=== PATIENT | male | born 1965 | race Caucasian/White ===

== ENCOUNTER 2017-04-10 13:23 | Inpatient (IN) | payer OTHER ==
[~2017-04-10] VITALS: Ht 188 cm; Wt 157.2 kg
[2017-04-10] VITALS (20 sets, daily range): BP systolic 105–213; BP diastolic 55–100; PULSE 33–81; TEMP 36.8–36.9; O2SAT 88–100; BMI 46.7
[2017-04-10] MEDS ORDERED: AMLO-110 PO (13:46)
[2017-04-10] MEDS ORDERED: INSU100I SQ (13:46)
[2017-04-10] MEDS ORDERED: TACR1CAP PO (13:46)
[2017-04-10] MEDS ORDERED: INSDGI SC (13:46)
[2017-04-10] MEDS ORDERED: ACET-1311 PO (13:46)
[2017-04-10] MEDS ORDERED: PRLSR20 PO (13:46)
[2017-04-10] MEDS ORDERED: ERGO500037 PO (13:46)
[2017-04-10] MEDS ORDERED: LPR25 PO (13:46)
[2017-04-10] MEDS ORDERED: MYCO250C26 PO (13:46)
[2017-04-10] MEDS ORDERED: VNTHFA/IN INH (13:46)
[2017-04-10] MEDS ORDERED: SODIUM CHLORIDE 0.9% 1000ML 1,000 ML IV STA (14:13)
[2017-04-10 14:59] LABS: URINE APPEARANCE CLEAR (CLEAR); URINE BILIRUBIN NEG (NEG); URINE COLOR YELLOW; URINE EPITHELIAL CELL AUTO 20-30 /lpf (0-5); URINE NITRITE NEG (NEG); URINE PH 6.5 (4.5-7.5); URINE SPECIFIC GRAVITY 1.022 (1.000-1.030); UROBILINOGEN NEG (NEG); ZZUR CULT IF INDIC CLEAN CATCH NO
[2017-04-10 15:02] LABS: BASO % 0.4 %; BASO ABS # 0.03 K/uL (0-0.2); COMPLETE YES; HEMATOCRIT 42.6 % (42-52); IG% 0.1 %; LYMPH % 16.8 %; LYMPH ABS # 1.19 K/uL (1.2-3.4); MEAN CELL VOLUME 80.1 fL (80-100); MEAN CORPUSCULAR HEMOGLOBIN 26.5 pg (25-34); MEAN CORPUSCULAR HGB CONC 33.1 g/dl (32-36); MEAN PLATELET VOLUME 9.5 fL (7.4-10.4); MONO % 7.5 %; NEUT % 73.2 %; PLATELET COUNT 190 K/uL (130-400); RED BLOOD COUNT 5.32 M/uL (4.7-6.1); WHITE BLOOD COUNT 7.08 K/uL (4.8-10.8)
[2017-04-10 15:08] LABS: MANUAL MICROSCOPIC REQUIRED? NO; REVIEW REQ? YES
--- NOTE | 2017-04-10 15:12 | DIAGNOSTIC IMAGING REPORT ---
HEAD WITHOUT CONTRAST (CT) CLINICAL HISTORY: 51 years-old Male presenting with syncope, hit head. TECHNIQUE: Multidetector CT imaging of the head was performed without the use of intravenous contrast. IV contrast: None. A dose lowering technique was used consistent with the principles of ALARA (as low as reasonably achievable). COMPARISON: None. CT DOSE (mGy.cm): The estimated cumulative dose is 823.94 mGycm. FINDINGS: Fiberglass Machine Operator topogram: Unremarkable. Ventricles and sulci normal in size. Brain parenchyma normal in appearance with preserved zambrano-white differentiation. No mass effect or midline shift. No hemorrhage or acute territorial infarct. No extra-axial fluid collection. Mild mucosal thickening in the maxillary sinuses. IMPRESSION: 1. No acute intracranial pathology. Electronically signed by: Ramiro Serrano M.D. 04/10/2017 3:11 PM Dictated Date/Time: 04/10/2017 3:09 PM
[2017-04-10 15:13] LABS: BUN/CREATININE RATIO 10.6 (10-20); CALCIUM 9.3 mg/dl (8.5-10.1); CREATININE 1.3 mg/dl (0.60-1.40); MAGNESIUM 1.7 mg/dl (1.8-2.4); POTASSIUM 4.6 mmol/L (3.5-5.1)
[2017-04-10 15:30] LABS: ALB/GLOB RATIO 0.9 (0.9-2); CKMB/CK RATIO 2.4 (0-3.0); THYROID STIMULATING HORMONE 0.448 uIu/ml (0.300-4.500)
--- NOTE | 2017-04-10 15:36 | EMERGENCY ROOM VISIT NOTE ---
ED Visit Note First contact with patient: 13:49 HPI: h/o renal txp. Chronic h/o syncope/near syncope presents to the ED with syncopal episode. Plan: Trop elevated to 0.08. EKG with first degree AVB. No signs of acute ischemia. ASA. Admit. Discuss anticoagulation with admitting team. I reviewed the patient's past medical history, medications, and visit nursing notes. I discussed the case with the physician catering administrative assistant and agree with the findings and plan as documented in the physician assistants note.
--- NOTE | 2017-04-10 15:47 | EMERGENCY ROOM VISIT NOTE ---
History First contact with patient: 13:49 Chief Complaint: SYNCOPE Stated Complaint: FALL/KNEE PAIN History of Present Illness The patient is a 51 year old male who presents to the Emergency Room with complaints of a syncopal episode which occurred just prior to arrival. The patient states that he has had intermittent lightheadedness for the past month. He states that the symptoms seem to come in waves. He will occasionally have 4-6 episodes of this in a few hours, and sometimes will go days without having any symptoms. He states that the lightheadedness occurs at times when he is standing up or sitting up, but does not occur when he is lying down. It does not seem to occur when he stands up after sitting for a period of time. He saw his primary care provider one month ago and states that he also had cold symptoms at this time and they felt the lightheadedness may be due to an upper respiratory infection. The patient reports that today, he was standing and began to feel lightheaded and had a syncopal episode. He does not recall the entire episode. He states that he fell onto his knees and hit the back of his head. The patient is a diabetic and has a history of hypertension. He reports he had a kidney transplant in 2014 but is unsure why. He denies any history of cardiac disease. He states that he was told when he was hospitalized he had an abnormal heart rhythm, but he is unsure what it was. He has had echocardiograms in the past. The patient denies any chest pain, shortness of breath, palpitations or headaches associated with these episodes. He denies any symptoms at this time. Review of Systems A complete 10 point review of systems was reviewed with the patient with pertinent positives and negatives as per history of present illness. All else were negative. Past Medical/Surgical History Renal transplant, hypertension, diabetes Social History Smoking Status: Never Smoker Current/Historical Medications Scheduled Amlodipine (Norvasc), 5 MG PO QAM Ergocalciferol (Vitamin D 01904 Unit), 50,000 UNIT PO MONTHLY Insulin Glargine (Lantus), 45 UNITS SC HS Insulin Lispro (Human) (Humalog), 4 UNITS SQ TIDM Metoprolol Tartrate (Lopressor), 25 MG PO Q12 Mycophenolate Mofetil (Cellcept), 500 MG PO Q12 Omeprazole (Prilosec), 20 MG PO QAM Tacrolimus (Prograf), 3 MG PO BID Scheduled PRN Acetaminophen (Tylenol), 650 MG PO Q6H PRN for Pain Albuterol Hfa (Ventolin Hfa), 2 PUFFS INH Q6H PRN for Shortness of Breath Physical Exam Vital Signs Date Time Temp Pulse Resp B/P (MAP) Pulse Ox O2 Delivery O2 Flow Rate FiO2 04/10/17 15:37 67 129/58 98 Room Air 04/10/17 14:09 68 125/59 70 139/63 72 105/68 04/10/17 13:45 36.9 66 152/79 97 Room Air 04/10/17 13:40 64 Physical Exam VITALS: Vitals are noted on the nurse's note and reviewed by myself. Vital signs stable. GENERAL: This is a 51-year-old male, in no acute distress, nondiaphoretic, well- developed well-nourished. SKIN: The skin was without rashes, erythema, edema, or bruising. HEAD: Normocephalic atraumatic. EARS: External auditory canals clear, tympanic membranes pearly zambrano without erythema or effusion bilaterally. EYES: Pupils equal round and reactive to light and accommodation. Conjunctivae without injection, sclerae without icterus. Extraocular movements intact. MOUTH: Mucous membranes moist. Tonsils are not enlarged. Pharynx without erythema or exudate. NECK: Supple without nuchal rigidity. HEART: Regular rate and rhythm without murmurs gallops or rubs. LUNGS: Clear to auscultation bilaterally without wheezes, rales or rhonchi. MUSCULOSKELETAL: Full range of motion of all extremities. Strength 5/5 throughout. NEURO: Patient was alert and oriented to person place and time. Normal sensation to light and sharp touch. No focal neurological deficits. Medical Decision & Procedures ER Provider Diagnostic Interpretation: HEAD WITHOUT CONTRAST (CT) FINDINGS: Logistics Analyst topogram: Unremarkable. Ventricles and sulci normal in size. Brain parenchyma normal in appearance with preserved zambrano-white differentiation. No mass effect or midline shift. No hemorrhage or acute territorial infarct. No extra-axial fluid collection. Mild mucosal thickening in the maxillary sinuses. IMPRESSION: 1. No acute intracranial pathology. CHEST ONE VIEW PORTABLE FINDINGS: Image quality is limited due to body habitus and underpenetration. Cardiac silhouette enlarged. Atherosclerosis of aortic arch. Mild prominence of pulmonary vasculature, which may in part be due to mildly low lung volumes. Elevation of the right hemidiaphragm. Lungs and pleural spaces clear. Osseous structures normal. Upper abdomen normal. IMPRESSION: 1. Cardiomegaly. 2. Mildly low lung volumes with hypoventilatory changes. Laboratory Results 04/10/17 14:35 Red Blood Count 5.32, Mean Corpuscular Volume 80.1, Mean Corpuscular Hemoglobin 26.5, Mean Corpuscular Hemoglobin Concent 33.1, Mean Platelet Volume 9.5, Neutrophils (%) (Auto) 73.2, Lymphocytes (%) (Auto) 16.8, Monocytes (%) (Auto) 7.5, Eosinophils (%) (Auto) 2.0, Basophils (%) (Auto) 0.4, Neutrophils # (Auto) 5.18, Lymphocytes # (Auto) 1.19, Monocytes # (Auto) 0.53, Eosinophils # (Auto) 0.14, Basophils # (Auto) 0.03 04/10/17 14:35 Test 04/10/17 14:20 04/10/17 14:35 Urine Color YELLOW Urine Appearance CLEAR (CLEAR) Urine pH 6.5 (4.5-7.5) Urine Specific [place] 1.022 (1.000-1.030) Urine Protein TRACE (NEG) Urine Glucose (UA) NEG (NEG) Urine Ketones NEG (NEG) Urine Occult Blood NEG (NEG) Urine Nitrite NEG (NEG) Urine Bilirubin NEG (NEG) Urine Urobilinogen NEG (NEG) Urine Leukocyte Esterase NEG (NEG) Urine WBC (Auto) 1-5 /hpf (0-5) Urine RBC (Auto) 0-4 /hpf (0-4) Urine Hyaline Casts (Auto) 0 /lpf (0-5) Urine Epithelial Cells (Auto) 20-30 /lpf (0-5) Urine Bacteria (Auto) NEG (NEG) White Blood Count 7.08 K/uL (4.8-10.8) Red Blood Count 5.32 M/uL (4.7-6.1) Hemoglobin 14.1 g/dL (14.0-18.0) Hematocrit 42.6 % (42-52) Mean Corpuscular Volume 80.1 fL (80-100) Mean Corpuscular Hemoglobin 26.5 pg (25-34) Mean Corpuscular Hemoglobin Concent 33.1 g/dl (32-36) Platelet Count 190 K/uL (130-400) Mean Platelet Volume 9.5 fL (7.4-10.4) Neutrophils (%) (Auto) 73.2 % Lymphocytes (%) (Auto) 16.8 % Monocytes (%) (Auto) 7.5 % Eosinophils (%) (Auto) 2.0 % Basophils (%) (Auto) 0.4 % Neutrophils # (Auto) 5.18 K/uL (1.4-6.5) Lymphocytes # (Auto) 1.19 K/uL (1.2-3.4) Monocytes # (Auto) 0.53 K/uL (0.11-0.59) Eosinophils # (Auto) 0.14 K/uL (0-0.5) Basophils # (Auto) 0.03 K/uL (0-0.2) RDW Standard Deviation 43.4 fL (36.4-46.3) RDW Coefficient of Variation 15.0 % (11.5-14.5) Immature Granulocyte % (Auto) 0.1 % Immature Granulocyte # (Auto) 0.01 K/uL (0.00-0.02) Anion Gap 8.0 mmol/L (3-11) Est Creatinine Clear Calc Drug Dose 110.9 ml/min Estimated GFR () 73.7 Estimated GFR (Non- 63.6 BUN/Creatinine Ratio 10.6 (10-20) Calcium Level 9.3 mg/dl (8.5-10.1) Magnesium Level 1.7 mg/dl (1.8-2.4) Total Bilirubin 0.8 mg/dl (0.2-1) Aspartate Amino Transf (AST/SGOT) 11 U/L (15-37) Alanine Aminotransferase (ALT/SGPT) 18 U/L (12-78) Alkaline Phosphatase 89 U/L (45-117) Total Creatine Kinase 68 U/L (39-308) Creatine Kinase MB 1.6 ng/ml (0.5-3.6) Creatine Kinase MB Ratio 2.4 (0-3.0) Total Protein 7.7 gm/dl (6.4-8.2) Albumin 3.6 gm/dl (3.4-5.0) Globulin 4.1 gm/dl (2.5-4.0) Albumin/Globulin Ratio 0.9 (0.9-2) Thyroid Stimulating Hormone (TSH) 0.448 uIu/ml (0.300-4.500) Medications Administered Medications (Trade) Dose Ordered Sig/Jamilah Route Start Time Stop Time Status Last Admin Dose Admin Sodium Chloride 1,000 ml @ 999 mls/hr Q1H1M STAT IV 04/10/17 14:13 04/10/17 15:13 DC 04/10/17 14:39 999 MLS/HR ECG Indication: syncope Rate (beats per minute): 68 Rhythm: normal sinus Findings: 1st degree AV block, no acute ischemic change Comparison ECG Date: no prior available ED Course The patient was evaluated as above. Labs were drawn and IV access was obtained. Patient was medicated with a 1 L normal saline bolus. Patient was reevaluated and findings were discussed. The patient is agreeable to admission. Case was discussed with the [facility] hospitalist, Dr. Fraire. They agreed to evaluate the patient for admission. Medical Decision Differential diagnosis includes cardiac syncope, vasovagal syncopal, arrhythmia , viral illness, dehydration, neurological source, infection among others. The patient is a 51-year-old male with past medical history of diabetes, hypertension and renal transplant who presents today for evaluation of a syncopal episode. The patient is well-appearing on my initial exam. Vital signs are within normal limits. Cmbet-rs-ihox glucose had been performed by EMS and was 200. Orthostatic vital signs were negative. Labs revealed no leukocytosis, anemia or concerning electrolyte abnormalities. CT of the head was performed due to the head trauma and was negative. Chest x-ray showed cardiomegaly, without any other acute findings. EKG showed a normal sinus rhythm with first-degree AV block. I was unable to obtain a prior EKG for comparison. I was able to access the patient's [facility] records. It appears that when he was hospitalized after his renal transplant, he had at least 1 episode of SVT. The patient does not recall following up with cardiology since this incident and I do not see any cardiology visits within the records. Patient reports he was told about this arrhythmia, but does not recall it occurring. The patient remained in a normal sinus rhythm throughout his stay in the emergency department today. However, his troponin was found to be slightly elevated at 0.08. Additionally, the patient's lightheadedness does not appear to be due to vasovagal syncope. For this reason, I am concerned about a possible arrhythmia or other cardiac abnormality and the patient will be admitted for further evaluation. [facility]. The patient was independently evaluated by Dr. Garcia, ED attending physician, who agreed with my assessment and treatment plan. Medication Reconcilliation Current Medication List: was personally reviewed by me Blood Pressure Screening Patient's blood pressure: Normal blood pressure Impression Primary Impression: Syncope Additional Impression: Elevated troponin Departure Information Referrals No Doctor, Assigned (PCP) Patient Instructions My [facility] Problem Qualifiers
--- NOTE | 2017-04-10 16:24 | DIAGNOSTIC IMAGING REPORT ---
CHEST ONE VIEW PORTABLE CLINICAL HISTORY: 51 years-old Male presenting with syncope. TECHNIQUE: Portable upright AP view of the chest was obtained. COMPARISON: None. FINDINGS: Image quality is limited due to body habitus and underpenetration. Cardiac silhouette enlarged. Atherosclerosis of aortic arch. Mild prominence of pulmonary vasculature, which may in part be due to mildly low lung volumes. Elevation of the right hemidiaphragm. Lungs and pleural spaces clear. Osseous structures normal. Upper abdomen normal. IMPRESSION: 1. Cardiomegaly. 2. Mildly low lung volumes with hypoventilatory changes. Electronically signed by: Ramiro Serrano M.D. 04/10/2017 4:23 PM Dictated Date/Time: 04/10/2017 4:22 PM
[2017-04-10] MEDS ORDERED: GLUCAGON FOR INJ 1 MG VIAL SQ PRN (16:45)
[2017-04-10] MEDS ORDERED: ALBUTEROL HFA 8 GM INHALER INH PRN (16:45)
[2017-04-10] MEDS ORDERED: GLUCOSE 40% GEL 15 GM TUBE PO PRN (16:45)
[2017-04-10] MEDS ORDERED: GLUCOSE 10 TABS/TUBE PO PRN (16:45)
[2017-04-10] MEDS ORDERED: DEXTROSE 50% 50 ML SYR IV PRN (16:45)
[2017-04-10] MEDS ORDERED: NITROGLYCERIN 0.4 MG SL PER TAB CHARGE SL PRN (16:45)
--- NOTE | 2017-04-10 17:02 | History and Physical ---
History & Physical Date & Time of Service: Apr 10, 2017 at 16:46 Chief Complaint: Fall/Knee Pain Primary Care Physician: No Doctor, Assigned History of Present Illness Source: patient, family 51 year old with PMH significant for transplanted kidney 2 years ago in [facility] syncope event on 04/10/17 at home fell on the floor after feeling lightheadedness and "head walker" of bloodflow/ warmth to head does not recall hitting the ground remembers waking up after being called by family member estimates that symptoms lasted briefly on this episode but has been feeling lightheaded symptoms for weeks denies symptoms when changing positions from sitting to standing, initially having lightheaded symptoms at rest, then more recently noted having lightheaded symptoms when already standing received IV fluids in ED history of diabetes on insulin, denies hypoglycemic numbers when he has checked blood sugars when having symptoms, denies hypoglycemic numbers immediately after hypoglycemic episode, estimates his blood sugar was 200, on ED presentation the glucose has been 193 on labs reports that he did not take his medicines prior to the episode, did not take insulin, or blood pressure medication denies seizure like symptoms denies history of stroke, CT head negative for stroke denies history of myocardial infarction initial troponin elevated 0.08 slightly elevated EKG with 1st degree AV block, AR interval 252 Review of systems: some head congestion and cough for 4 weeks Family History FH: diabetes mellitus FATHER Social History Smoking Status: Never Smoker Alcohol Use: none Multi-Drug Resistant Organisms History of MDRO: No Allergies Coded Allergies: No Known Allergies (Verified , 08/16/02) Home Medications Scheduled Amlodipine (Norvasc), 5 MG PO QAM Ergocalciferol (Vitamin D 55170 Unit), 50,000 UNIT PO MONTHLY Insulin Glargine (Lantus), 45 UNITS SC HS Insulin Lispro (Human) (Humalog), 4 UNITS SQ TIDM Metoprolol Tartrate (Lopressor), 25 MG PO Q12 Mycophenolate Mofetil (Cellcept), 500 MG PO Q12 Omeprazole (Prilosec), 20 MG PO QAM Tacrolimus (Prograf), 3 MG PO BID Scheduled PRN Acetaminophen (Tylenol), 650 MG PO Q6H PRN for Pain Albuterol Hfa (Ventolin Hfa), 2 PUFFS INH Q6H PRN for Shortness of Breath Review of Systems Constitutional: No fever Eyes: No worsening of vision ENT: No sore throat, No trouble swallowing Respiratory: + cough, + shortness of breath Cardiovascular: No chest pain, No edema, No palpitations Abdomen: No pain, No nausea, No vomiting, No diarrhea, No constipation Musculoskeletal: No joint pain Neurologic: + vertigo (syncope), No paralysis, No numbness/tingling Psychiatric: No substance abuse Endocrine: No fatigue Hematologic / Lymphatic: No abnormal bleeding/bruising Integumentary: No rash Allergic / Immunologic: + environmental allergies Physical Exam Vital Signs Date Time Temp Pulse Resp B/P (MAP) Pulse Ox O2 Delivery O2 Flow Rate FiO2 04/10/17 15:37 67 129/58 98 Room Air 04/10/17 14:09 68 125/59 70 139/63 72 105/68 04/10/17 13:45 36.9 66 152/79 97 Room Air 04/10/17 13:40 64 General Appearance: no apparent distress Head: normocephalic, atraumatic Eyes: normal inspection, EOMI Respiratory/Chest: chest non-tender, lungs clear (mildy less clear on right lung sapp), normal breath sounds, no respiratory distress, no accessory muscle use Cardiovascular: regular rate, rhythm, no edema, no JVD, normal peripheral pulses Abdomen/GI: normal bowel sounds, non tender, soft, no pulsatile mass Genitourinary - Male: normal male genitalia Back: normal inspection Extremities/Musculoskelatal: normal inspection, no calf tenderness, normal capillary refill, non-tender, + pertinent finding (history of toe amputation) Neurologic/Psych: no motor/sensory deficits, alert, normal mood/affect, oriented x 3 Skin: normal color, warm/dry Diagnostics Laboratory Results Results Past 24 Hours Test 04/10/17 14:20 04/10/17 14:35 Range/Units Urine Color YELLOW Urine Appearance CLEAR CLEAR Urine pH 6.5 4.5-7.5 Urine Specific [place] 1.022 1.000-1.030 Urine Protein TRACE NEG Urine Glucose (UA) NEG NEG Urine Ketones NEG NEG Urine Occult Blood NEG NEG Urine Nitrite NEG NEG Urine Bilirubin NEG NEG Urine Urobilinogen NEG NEG Urine Leukocyte Esterase NEG NEG Urine WBC (Auto) 1-5 0-5 /hpf Urine RBC (Auto) 0-4 0-4 /hpf Urine Hyaline Casts (Auto) 0 0-5 /lpf Urine Epithelial Cells (Auto) 20-30 0-5 /lpf Urine Bacteria (Auto) NEG NEG White Blood Count 7.08 4.8-10.8 K/uL Red Blood Count 5.32 4.7-6.1 M/uL Hemoglobin 14.1 14.0-18.0 g/dL Hematocrit 42.6 42-52 % Mean Corpuscular Volume 80.1 80-100 fL Mean Corpuscular Hemoglobin 26.5 25-34 pg Mean Corpuscular Hemoglobin Concent 33.1 32-36 g/dl Platelet Count 190 130-400 K/uL Mean Platelet Volume 9.5 7.4-10.4 fL Neutrophils (%) (Auto) 73.2 % Lymphocytes (%) (Auto) 16.8 % Monocytes (%) (Auto) 7.5 % Eosinophils (%) (Auto) 2.0 % Basophils (%) (Auto) 0.4 % Neutrophils # (Auto) 5.18 1.4-6.5 K/uL Lymphocytes # (Auto) 1.19 1.2-3.4 K/uL Monocytes # (Auto) 0.53 0.11-0.59 K/uL Eosinophils # (Auto) 0.14 0-0.5 K/uL Basophils # (Auto) 0.03 0-0.2 K/uL RDW Standard Deviation 43.4 36.4-46.3 fL RDW Coefficient of Variation 15.0 11.5-14.5 % Immature Granulocyte % (Auto) 0.1 % Immature Granulocyte # (Auto) 0.01 0.00-0.02 K/uL Sodium Level 137 136-145 mmol/L Potassium Level 4.6 3.5-5.1 mmol/L Chloride Level 106 98-107 mmol/L Carbon Dioxide Level 23 21-32 mmol/L Anion Gap 8.0 3-11 mmol/L Blood Urea Nitrogen 14 7-18 mg/dl Creatinine 1.30 0.60-1.40 mg/dl Est Creatinine Clear Calc Drug Dose 110.9 ml/min Estimated GFR () 73.7 Estimated GFR (Non- 63.6 BUN/Creatinine Ratio 10.6 10-20 Random Glucose 193 70-99 mg/dl Calcium Level 9.3 8.5-10.1 mg/dl Magnesium Level 1.7 1.8-2.4 mg/dl Total Bilirubin 0.8 0.2-1 mg/dl Aspartate Amino Transf (AST/SGOT) 11 15-37 U/L Alanine Aminotransferase (ALT/SGPT) 18 12-78 U/L Alkaline Phosphatase 89 45-117 U/L Total Creatine Kinase 68 39-308 U/L Creatine Kinase MB 1.6 0.5-3.6 ng/ml Creatine Kinase MB Ratio 2.4 0-3.0 Troponin I 0.080 0-0.045 ng/ml Total Protein 7.7 6.4-8.2 gm/dl Albumin 3.6 3.4-5.0 gm/dl Globulin 4.1 2.5-4.0 gm/dl Albumin/Globulin Ratio 0.9 0.9-2 Thyroid Stimulating Hormone (TSH) 0.448 0.300-4.500 uIu/ml Diagnostic Radiology no official radiology read yet right lungs clear, clearly seen right costophrenic angle, left costophrenic angles not as clear on my own CXR interpretation EKG EKG with 1st degree AV block, AR interval 252, Impression Assessment and Plan Assessment and Plan syncope event on 04/10/17 at home fell on the floor after feeling lightheadedness and "head walker" of bloodflow/ warmth to head does not recall hitting the ground remembers waking up after being called by family member estimates that symptoms lasted briefly on this episode but has been feeling lightheaded symptoms for weeks denies symptoms when changing positions from sitting to standing, initially having lightheaded symptoms at rest, then more recently noted having lightheaded symptoms when already standing, received IV fluids in the ED, will check orthostatics history of diabetes on insulin, denies hypoglycemic numbers when he has checked blood sugars when having symptoms, denies hypoglycemic numbers immediately after hypoglycemic episode, estimates his blood sugar was 200, on ED presentation the glucose has been 193 on labs reports that he did not take his medicines prior to the episode, did not take insulin, or blood pressure medication hold blood pressure medication denies seizure like symptoms denies history of stroke, CT head negative for stroke denies history of myocardial infarction initial troponin elevated 0.08 slightly elevated, trend troponins EKG with 1st degree AV block, AR interval 252, may be new Comparison EKG on outpatient records in the past with runs of SVT? afib? but may have been related to kidney transplant will place on telemetry, serial EKGs EKG with left axis deviation Last TTE on record Study Date: 05/05/2015 03:33 PM [place] [facility] [place] of [place] diagnosis for atrial fibrillation; LV ejection fraction is 60-64% (normal). The left ventricular cavity size is normal. The LV wall thickness is mildly increased (concentric). The left ventricular diastolic function is moderately abnormal (grade II). send for transthoracic echo on this admission no appreciable carotid bruit, send carotid ultrasound ordered consult cardiology History of renal transplant continue home dosed immunosuppressants trend renal function labs Head congestion and cough history patient reports symptoms have been improving, supportive care Shortness of breath on review of systems on exertion check TTE no JVD, no leg edema obtain full X ray reading DVT prophylaxis heparin subcut Level of Care Telemetry Resuscitation Status FULL RESUSCITATION VTE Prophylaxis VTE Risk Assessment Done? Y/N: Yes Risk Level: Moderate Given or contraindicated: Unfractionated heparin SQ
--- NOTE | 2017-04-10 18:00 | DIAGNOSTIC IMAGING REPORT ---
CAROTID DOPPLER NECK ART CLINICAL HISTORY: 51 years-old Male presenting with syncope. TECHNIQUE: Real-time grayscale and color and spectral Doppler ultrasound imaging of the bilateral carotid arteries was performed. NASCET criteria was used in evaluating this study. COMPARISON: None. FINDINGS: Right: Common carotid: Patent. Peak systolic velocity 85 cm/s. Internal carotid artery: Patent. Peak systolic velocity 75 cm/s. External carotid artery: Patent. Peak systolic velocity 121 cm/s. Systolic ratio: 0.9. Left: Common carotid: Patent. Peak systolic velocity 85 cm/s. Internal carotid artery: Patent. Peak systolic velocity 88 cm/s. External carotid artery: Patent. Peak systolic velocity 135 cm/s. Systolic ratio: 1.0. Bilateral antegrade flow within the vertebral arteries. Reference ranges: Stenosis measurements are compared to reference velocity parameters. Normal ICA peak systolic velocity less than 125 cm/s. Normal ICA peak systolic velocity to common carotid artery velocity ratio is less than 2: less than 2 equates to less than 50% stenosis, 2-4 equates to 50-69% stenosis, greater than 4 equates to greater than or equal to 70% stenosis. Normal ICA end-diastolic velocity less than 40. Blood pressure Deferred secondary to limb restriction. IMPRESSION: No hemodynamically significant stenosis seen within the carotid arteries. Electronically signed by: Ramiro Serrano M.D. 04/10/2017 5:59 PM Dictated Date/Time: 04/10/2017 5:58 PM
[2017-04-10] MEDS ORDERED: IV FLUIDS COMPLETED PRN (18:15)
[2017-04-10] MEDS ORDERED: INFLUENZA ADMINISTRATION CHARGE ONE (20:15)
[2017-04-10] MEDS ORDERED: INFLUENZA VIRUS QUAD VACCINE 0.5 ML SYR IM. ONE (20:15)
[2017-04-10] MEDS ORDERED: METOPROLOL TARTRATE 25 MG TAB PO SCH (21:00)
[2017-04-10] MEDS ORDERED: INSULIN GLARGINE SOLOSTAR 100 UNITS/ML 3 ML PEN SC SCH ×2 (21:00→21:45)
[2017-04-10] MEDS ORDERED: ATROPINE SULFATE 0.1 MG/ML 5ML SYR ONE (21:07)
[2017-04-10] MEDS: TACROLIMUS 1 MG CAP PO SCH (21:57)
[2017-04-10] MEDS: MYCOPHENOLATE MOFETIL 250 MG CAP (CELLCEPT) PO SCH (21:57)
[2017-04-10 22:15] LABS: PROTHROMBIN TIME (PATIENT) 10.7 SECONDS (9.0-12.0)
[2017-04-10] MEDS ORDERED: CALCIUM GLUCONATE 10% 1,000 MG in SODIUM CHLORIDE 0.9% 50ML 50 ML IV STA (22:15)
[2017-04-10] MEDS ORDERED: DOPamine 400MG / D5W 400 MG IV SCH (22:15)
[2017-04-10] MEDS: SODIUM CHLORIDE 0.9% 1000ML 1,000 ML IV SCH (22:41)
--- NOTE | 2017-04-10 23:20 | Progress Note ---
Progress Note Date of Service Apr 10, 2017. Progress Note Contacted by nursing that the patient was appearing unstable with a low heart rate, lizzette pond was called. At bedside the patient is mentating well and is otherwise asymptomatic aside from distracting pain from the nurse who is placing an IV in his R arm. He denies any chest pain or shortness of breath and states that he became lightheaded while standing up to use a urinal. He was admitted for a syncopal episode earlier today, and reports being lightheaded without LOC for the past month. He is obese, s/p kidney transplant 2 years ago, and is a diabetic on insulin with a normal sugar level at this time. He takes metoprolol reportedly for hypertension, although there is some mention of a history of atrial fibrillation in the chart; the patient denies this. His last dose of metoprolol was this morning roughly 12 hours ago. His BP was 125 systolic and his HR was in the 30s when I arrived with significant pauses just seen on EKG. Atropine 0.5mg was given x 1 dose with no response. Pacer pads were in place, however, with the patient currently tolerating the low heart rate, external pacing was not needed. He was transferred to the ICU for monitoring overnight. I contacted Dr. Boston Guevara from Cardiology who recommended dopamine 5mcg/kg/ min for support and to keep the patient NPO p MN in preparation for possible pacemaker placement. I contact Dr. Diana Sims, the ICU attending, and apprised him of the patient. He agreed with the dopamine despite a SBP of 170 and HR in the 70s. However, within 30 minutes of starting the dopamine, his SBP went up to 213 and the dopamine was held. His HR remains in the low 70s with occasional pauses. He was given 1 gram Ca gluconate IV. All AV milo blocking agents were held. He was given half of his typical Lantus dose of 45 Units prior to sleep and CPAP was ordered for him with a h/o SUJIT and typically wearing a CPAP mask at home. On reevaluation in the ICU he is comfortable, mentating well and without any complaints except for some L knee pain from when he fell earlier in the day. His cardiac exam was normal with good peripheral pulses, and his lungs were clear to auscultation bilaterally. His knee has normal ROM, no evidence of effusion and a small, coin-sized superficial abrasion over the patella. Will plan to externally pace if patient drops below 30bpm or becomes symptomatic. Rigo, DO
[2017-04-11] VITALS (69 sets, daily range): BP systolic 112–169; BP diastolic 47–77; PULSE 34–81; TEMP 36.5–37.2; O2SAT 89–99; Ht 188 cm; Wt 157.2 kg
[2017-04-11] MEDS ORDERED: CALCIUM GLUCONATE 10% 1,000 MG in SODIUM CHLORIDE 0.9% 50ML 50 ML IV STA (00:18)
[2017-04-11] MEDS ORDERED: ONDANSETRON INJ 2 MG/ML 2 ML VIAL ONE (00:37)
[2017-04-11] MEDS ORDERED: NURSING VERBAL MED ORDER ONE ×2 (00:45→06:30)
[2017-04-11] MEDS ORDERED: ONDANSETRON INJ 2 MG/ML 2 ML VIAL IV PRN (01:30)
[2017-04-11 06:06] LABS: HEMATOCRIT 42.1 % (42-52); MEAN CELL VOLUME 80.8 fL (80-100); MEAN CORPUSCULAR HEMOGLOBIN 27.3 pg (25-34); MEAN CORPUSCULAR HGB CONC 33.7 g/dl (32-36); MEAN PLATELET VOLUME 9.9 fL (7.4-10.4); PLATELET COUNT 267 K/uL (130-400); RED BLOOD COUNT 5.21 M/uL (4.7-6.1); WHITE BLOOD COUNT 16.55 K/uL (4.8-10.8)
[2017-04-11] MEDS: MAGNESIUM SULFATE 1GM / D5W 1 GM in PREMIXED IN D5W 100 ML IV SCH ×2 (06:37→07:47)
[2017-04-11] MEDS: SODIUM CHLORIDE 0.9% 1000ML 1,000 ML IV SCH (06:38)
[2017-04-11 06:42] LABS: BUN/CREATININE RATIO 9.7 (10-20); CALCIUM 9.7 mg/dl (8.5-10.1); CREATININE 1.7 mg/dl (0.60-1.40); MAGNESIUM 1.7 mg/dl (1.8-2.4)
[2017-04-11 06:56] LABS: BETA-HYDROXYBUTYRATE 16.51 mg/dL (0.2-2.81)
[2017-04-11] MEDS ORDERED: INSULIN ASPART 100 UNITS/ML 3 ML PEN SQ SCH (07:15)
--- NOTE | 2017-04-11 07:58 | Critical Care Consultation ---
Critical Care Consultation Date of Consultation: Apr 11, 2017. Attending Physician: David Fraire M.D. Reason for Consultation: Symptomatic Bradycardia History of Present Illness Pt is a 51M with a PMHx of renal translate on immunosuppresants, Left Toe Amp in 2000, DM2 on insulin p/w syncope in the setting of one month of dizzines x 4 weekss. Pt does not recall the fall but does remember feeling a head walker just before the fall. The patient was admitted to telemetry, while in tele pt was apparently standing to use the urinal and the heart monitor noticed long pauses with a heart rate in the 30s. Dr. Sierra ([facility] Hospitalist) consulted Dr. Guevara (cardiology) and Dr. Sims (sales operations director), atropine was given x 1 with no effect, a dopamine drip was started and the pt was transferred to the ICU. EKG showed first degree heart block. All AV milo blocking agents were held. Pt was made NPO for possible Pacemaker placement today (04/11/17). Pt denies any previous cardiac history. In the ICU pt had a suspected run of Torsades and IV Magnesium was given. ICU course this far is only complicated by nausea which is being treated with Zofran. Last TTE on record Study Date: 05/05/2015 03:33 PM Study Location: [facility] [place] performed because of referral diagnosis for atrial fibrillation; LV ejection fraction is 60-64% (normal). The left ventricular cavity size is normal. The LV wall thickness is mildly increased (concentric). The left ventricular diastolic function is moderately abnormal (grade II). Carotid Echocardiogram is unremarkable. Pt was seen and examined at bedside in the AM of 04/11/17, pt has no complaints at presents. Denies chest pain, denies SOB, pt is vomiting he however is made NPO. Pt has gotten IV Zofran. Plan of care was described to the patient and all questions were answered. Family History FH: diabetes mellitus FATHER Social History Smoking Status: Never Smoker Alcohol Use: none Allergies Coded Allergies: No Known Allergies (Verified , 08/16/02) Home Medications Scheduled Amlodipine (Norvasc), 5 MG PO QAM Ergocalciferol (Vitamin D 99607 Unit), 50,000 UNIT PO MONTHLY Insulin Glargine (Lantus), 45 UNITS SC HS Insulin Lispro (Human) (Humalog), 4 UNITS SQ TIDM Metoprolol Tartrate (Lopressor), 25 MG PO Q12 Mycophenolate Mofetil (Cellcept), 500 MG PO Q12 Omeprazole (Prilosec), 20 MG PO QAM Tacrolimus (Prograf), 3 MG PO BID Scheduled PRN Acetaminophen (Tylenol), 650 MG PO Q6H PRN for Pain Albuterol Hfa (Ventolin Hfa), 2 PUFFS INH Q6H PRN for Shortness of Breath Current Inpatient Medications Current Inpatient Medications Medications (Trade) Dose Ordered Sig/Jamilah Route Start Time Stop Time Status Last Admin Dose Admin Albuterol (Ventolin Hfa Inhaler) 2 puffs Q6H PRN INH 04/10/17 16:45 05/10/17 16:44 Mycophenolate Mofetil (Cellcept Cap) 500 mg Q12 PO 04/10/17 21:00 05/10/17 20:59 04/10/17 21:57 500 MG Tacrolimus (Prograf Cap) 3 mg BID PO 04/10/17 21:00 05/10/17 20:59 04/10/17 21:57 3 MG Glucose (Glucose 40% Gel) 15-30 GRAMS 15 GRAMS... UD PRN PO 04/10/17 16:45 05/10/17 16:44 Glucose (Glucose Chew Tab) 4-8 Tablets 4 Tabl... UD PRN PO 04/10/17 16:45 05/10/17 16:44 Dextrose (Dextrose 50% 50ML Syringe) 25-50ML OF 50% DW IV FOR... UD PRN IV 04/10/17 16:45 05/10/17 16:44 Glucagon (Glucagon Inj) 1 mg UD PRN SQ 04/10/17 16:45 05/10/17 16:44 Insulin Glargine (Lantus Solostar Pen) 20 units HS SC 04/10/17 21:45 05/10/17 21:44 04/10/17 22:34 20 UNITS Dopamine HCl/ Dextrose 250 ml @ 0 mls/hr Q0M IV 04/10/17 22:15 05/10/17 22:14 04/10/17 22:32 17.4 MLS/HR Sodium Chloride 1,000 ml @ 125 mls/hr Q8H IV 04/10/17 22:30 10/9/17 14:29 04/11/17 06:38 125 MLS/HR Ondansetron HCl (Zofran Inj) 4 mg Q6H PRN IV 04/11/17 01:30 05/11/17 01:29 04/11/17 05:19 4 MG Magnesium Sulfate 1 gm/Prmx 100 ml @ 100 mls/hr Q1H IV 04/11/17 06:30 04/11/17 08:29 04/11/17 06:37 100 MLS/HR Review of Systems Constitutional: No fever, No chills, No sweats, No weight loss Respiratory: No cough, No sputum, No wheezing, No shortness of breath Cardiovascular: No chest pain Abdomen: + pain (on deep palpation, no rebound tenderness, ), + nausea, + vomiting, No diarrhea (last BM yesterday), No constipation Musculoskeletal: No joint pain Genitourinary - Male: No dysuria Physical Exam Date Time Temp Pulse Resp B/P (MAP) Pulse Ox O2 Delivery O2 Flow Rate FiO2 04/11/17 06:01 52 21 155/52 (86) 93 04/11/17 05:44 36.7 65 19 137/60 93 Nasal Cannula 6.0 65 04/11/17 05:31 45 19 140/53 (82) 89 04/11/17 05:01 46 13 136/57 (83) 97 04/11/17 04:31 47 25 156/59 (91) 91 04/11/17 04:01 36.5 59 26 147/57 (87) 92 04/11/17 04:00 93 Nasal Cannula 6.0 04/11/17 03:59 58 20 137/60 (85) 93 04/11/17 03:31 65 19 137/60 (85) 95 04/11/17 03:01 68 26 166/57 (93) 92 04/11/17 02:46 67 24 157/63 (94) 91 04/11/17 02:31 73 17 166/64 (98) 91 04/11/17 02:16 69 22 162/60 (94) 91 04/11/17 02:01 69 27 143/63 (89) 91 04/11/17 01:46 65 27 152/62 (92) 90 04/11/17 01:31 67 18 157/62 (93) 90 04/11/17 01:16 67 26 158/68 (98) 90 04/11/17 01:01 75 17 148/71 (96) 92 04/11/17 00:47 81 10 169/68 (101) 91 04/11/17 00:32 49 18 167/64 (98) 93 04/11/17 00:17 62 15 148/72 (97) 93 04/11/17 00:13 44 13 137/52 (80) 95 04/11/17 00:01 95 CPAP 6.0 04/11/17 00:01 36.7 74 18 160/77 (104) 98 04/10/17 23:46 64 23 168/66 (100) 91 04/10/17 23:33 63 22 163/55 (91) 91 04/10/17 23:31 65 24 151/71 (97) 91 04/10/17 23:16 64 18 155/75 (101) 88 04/10/17 23:14 65 92 04/10/17 23:01 68 12 178/71 (106) 94 04/10/17 22:51 80 12 213/77 (122) 96 Room Air 04/10/17 22:46 81 12 204/81 (122) 98 Room Air 04/10/17 22:31 75 13 183/80 (114) 99 Room Air 04/10/17 22:16 72 12 163/93 (116) 94 Room Air 04/10/17 22:01 76 19 176/77 (110) 100 Room Air 04/10/17 21:46 72 13 175/80 (111) 93 Room Air 04/10/17 21:31 67 12 159/100 (119) 100 Room Air 04/10/17 21:22 36.8 58 17 137/79 (98) 99 Room Air 04/10/17 21:19 98 Room Air 04/10/17 21:10 105/78 (87) 04/10/17 20:55 33 106/71 (83) 04/10/17 19:28 36.9 69 22 119/61 (80) 98 Room Air 04/10/17 17:40 36.8 72 16 159/72 (101) 97 Room Air 04/10/17 17:17 98 Room Air 04/10/17 15:37 67 129/58 98 Room Air 04/10/17 14:09 68 125/59 70 139/63 72 105/68 04/10/17 13:45 36.9 66 152/79 97 Room Air 04/10/17 13:40 64 General Appearance: mild distress (pt is dry heaving at bedside), obese Eyes: PERRLA, EOMI, conjunctivae normal Neck: normal range of motion, no tenderness Respiratory: breath sounds normal, clear to auscultation, no respiratory distress, no tenderness, other (pt is on 6LNC) Cardiovasular: other (sinus bradycardia on the monitor) Abdomen: normal bowel sounds, other (Pain to deep palpation in the RUQ, pt is obese, no spleno or hepatomegaly appreciated, no guarding, ) Back: normal inspection, no CVA tenderness Upper Extremities: other (Left AV fistua, 1+ edema in the UE and LE bilaterally ) Pulses: dorsalis pedis (R) (2+), dorsalis pedis (L) (2+) Neuro: alert, oriented x 3, normal sensation, normal speech, other Psychiatric: normal affect, no suicidal ideation Laboratory Results Last 24 Hours Test 04/10/17 14:20 04/10/17 14:35 04/10/17 17:18 04/10/17 20:07 Urine Color YELLOW Urine Appearance CLEAR Urine pH 6.5 Urine Specific [place] 1.022 Urine Protein TRACE Urine Glucose (UA) NEG Urine Ketones NEG Urine Occult Blood NEG Urine Nitrite NEG Urine Bilirubin NEG Urine Urobilinogen NEG Urine Leukocyte Esterase NEG Urine WBC (Auto) 1-5 /hpf Urine RBC (Auto) 0-4 /hpf Urine Hyaline Casts (Auto) 0 /lpf Urine Epithelial Cells (Auto) 20-30 /lpf Urine Bacteria (Auto) NEG White Blood Count 7.08 K/uL Red Blood Count 5.32 M/uL Hemoglobin 14.1 g/dL Hematocrit 42.6 % Mean Corpuscular Volume 80.1 fL Mean Corpuscular Hemoglobin 26.5 pg Mean Corpuscular Hemoglobin Concent 33.1 g/dl Platelet Count 190 K/uL Mean Platelet Volume 9.5 fL Neutrophils (%) (Auto) 73.2 % Lymphocytes (%) (Auto) 16.8 % Monocytes (%) (Auto) 7.5 % Eosinophils (%) (Auto) 2.0 % Basophils (%) (Auto) 0.4 % Neutrophils # (Auto) 5.18 K/uL Lymphocytes # (Auto) 1.19 K/uL Monocytes # (Auto) 0.53 K/uL Eosinophils # (Auto) 0.14 K/uL Basophils # (Auto) 0.03 K/uL RDW Standard Deviation 43.4 fL RDW Coefficient of Variation 15.0 % Immature Granulocyte % (Auto) 0.1 % Immature Granulocyte # (Auto) 0.01 K/uL Sodium Level 137 mmol/L Potassium Level 4.6 mmol/L Chloride Level 106 mmol/L Carbon Dioxide Level 23 mmol/L Anion Gap 8.0 mmol/L Blood Urea Nitrogen 14 mg/dl Creatinine 1.30 mg/dl Est Creatinine Clear Calc Drug Dose 110.9 ml/min Estimated GFR () 73.7 Estimated GFR (Non- 63.6 BUN/Creatinine Ratio 10.6 Random Glucose 193 mg/dl Calcium Level 9.3 mg/dl Magnesium Level 1.7 mg/dl Total Bilirubin 0.8 mg/dl Aspartate Amino Transf (AST/SGOT) 11 U/L Alanine Aminotransferase (ALT/SGPT) 18 U/L Alkaline Phosphatase 89 U/L Total Creatine Kinase 68 U/L Creatine Kinase MB 1.6 ng/ml Creatine Kinase MB Ratio 2.4 Troponin I 0.080 ng/ml Total Protein 7.7 gm/dl Albumin 3.6 gm/dl Globulin 4.1 gm/dl Albumin/Globulin Ratio 0.9 Thyroid Stimulating Hormone (TSH) 0.448 uIu/ml Bedside Glucose 218 mg/dl 172 mg/dl Test 04/10/17 20:25 04/10/17 21:03 04/10/17 21:10 04/10/17 22:26 Troponin I 0.093 ng/ml Prothrombin Time 10.7 SECONDS Prothromb Time International Ratio 1.0 Bedside Glucose 186 mg/dl 150 mg/dl Test 04/11/17 04:38 04/11/17 05:25 Bedside Glucose 244 mg/dl White Blood Count 16.55 K/uL Red Blood Count 5.21 M/uL Hemoglobin 14.2 g/dL Hematocrit 42.1 % Mean Corpuscular Volume 80.8 fL Mean Corpuscular Hemoglobin 27.3 pg Mean Corpuscular Hemoglobin Concent 33.7 g/dl RDW Standard Deviation 44.1 fL RDW Coefficient of Variation 15.0 % Platelet Count 267 K/uL Mean Platelet Volume 9.9 fL Sodium Level 137 mmol/L Potassium Level 5.0 mmol/L Chloride Level 108 mmol/L Carbon Dioxide Level 18 mmol/L Anion Gap 11.0 mmol/L Blood Urea Nitrogen 17 mg/dl Creatinine 1.70 mg/dl Est Creatinine Clear Calc Drug Dose 84.8 ml/min Estimated GFR () 53.3 Estimated GFR (Non- 46.0 BUN/Creatinine Ratio 9.7 Random Glucose 312 mg/dl Calcium Level 9.7 mg/dl Magnesium Level 1.7 mg/dl Troponin I 0.079 ng/ml Beta-Hydroxybutyric Acid 16.51 mg/dL Diagnostic Results CAROTID DOPPLER NECK ART CLINICAL HISTORY: 51 years-old Male presenting with syncope. TECHNIQUE: Real-time grayscale and color and spectral Doppler ultrasound imaging of the bilateral carotid arteries was performed. NASCET criteria was used in evaluating this study. COMPARISON: None. FINDINGS: Right: Common carotid: Patent. Peak systolic velocity 85 cm/s. Internal carotid artery: Patent. Peak systolic velocity 75 cm/s. External carotid artery: Patent. Peak systolic velocity 121 cm/s. Systolic ratio: 0.9. Left: Common carotid: Patent. Peak systolic velocity 85 cm/s. Internal carotid artery: Patent. Peak systolic velocity 88 cm/s. External carotid artery: Patent. Peak systolic velocity 135 cm/s. Systolic ratio: 1.0. Bilateral antegrade flow within the vertebral arteries. Reference ranges: Stenosis measurements are compared to reference velocity parameters. Normal ICA peak systolic velocity less than 125 cm/s. Normal ICA peak systolic velocity to common carotid artery velocity ratio is less than 2: less than 2 equates to less than 50% stenosis, 2-4 equates to 50-69% stenosis, greater than 4 equates to greater than or equal to 70% stenosis. Normal ICA end-diastolic velocity less than 40. Blood pressure Deferred secondary to limb restriction. IMPRESSION: No hemodynamically significant stenosis seen within the carotid arteries. CHEST ONE VIEW PORTABLE CLINICAL HISTORY: 51 years-old Male presenting with syncope. TECHNIQUE: Portable upright AP view of the chest was obtained. COMPARISON: None. FINDINGS: Image quality is limited due to body habitus and underpenetration. Cardiac silhouette enlarged. Atherosclerosis of aortic arch. Mild prominence of pulmonary vasculature, which may in part be due to mildly low lung volumes. Elevation of the right hemidiaphragm. Lungs and pleural spaces clear. Osseous structures normal. Upper abdomen normal. IMPRESSION: 1. Cardiomegaly. 2. Mildly low lung volumes with hypoventilatory changes. HEAD WITHOUT CONTRAST (CT) CLINICAL HISTORY: 51 years-old Male presenting with syncope, hit head. TECHNIQUE: Multidetector CT imaging of the head was performed without the use of intravenous contrast. IV contrast: None. A dose lowering technique was used consistent with the principles of ALARA (as low as reasonably achievable). COMPARISON: None. CT DOSE (mGy.cm): The estimated cumulative dose is 823.94 mGycm. FINDINGS: Licensing Director topogram: Unremarkable. Ventricles and sulci normal in size. Brain parenchyma normal in appearance with preserved zambrano-white differentiation. No mass effect or midline shift. No hemorrhage or acute territorial infarct. No extra-axial fluid collection. Mild mucosal thickening in the maxillary sinuses. IMPRESSION: 1. No acute intracranial pathology. Assessment & Plan 51M with a PMHx of renal transplant, DM2, Left 1st Digit Amputation p/w syncope and dizziness x 1 month. Pt was admitted to the ICU for symptomatic bradycardia , started on pressors. Lyme serology came back positive, we are treating with Cefriaxone. Temporary Pacemaker insertion today by Dr. Tripp. Neuro: * Pt reports feeling dizzy for the past 6 weeks., * AAOx3 * CT Head normal on 04/10/17. * Pain control with Tylenol 650mg PO Q6H PRN. CV - * Hemodynamically stable. No systemic complaints at present. * s/p Temporary Pacemaker placement today. * Will treated as if Lyme Carditis although EKG changes are not typical of Lyme Carditis. * Ceftriaxone 2mg BID. * We should see resolution within 48 hrs if pt requires permanent pacer. * 6s episode of Torsades this AM, pt was given 2g IV Mag Sulfate. * Trops elevating at 0.09, will continue to trend. * Daily EKGs. * Holding home metoprolol and Amlodipine. Resp - * X-ray results showed no acute process. Renal/ - * S/p Renal Transplant. (man years ago) * Pacemaker placement today with contrast. Received around 250mls of fluid during procedure. * c/w home meds Cellcept 500mg BID and Prograff 3mg PO BID. * Creatinine 1.7 today. Potassium was 5.0. * Post pacemaker placement, Bolus of 500mL of LR and drop of 100mls/hr. * Will involve renal for question about Electrolyte management and ERIN. GI/Diet - * DM2 diet, after procedure. No plans for future procedures. Endo - * BS >300 today, no anion gap but pt has beta hydroxybuteric acid, only received half of his normal Lantus dose yesterday. WIll start insuling Drip. * Electrolytes: K+ 5.0, should decrease as we increase insulin. * Mg 1.7, got 2g Mag Sulfate this AM for Torsades [place] as above. * Daily BMPs, daily EKGs. Heme - * Hgb 14.3, Platelets 267. * DVT Proph: Hep SQ BID, SCDs ID - * Afebrile, WBC elevated to 17,000 * Lyme Serology positive. * starting Ceftriaxone 2mg BID as above. MSK * PT and OT once patients condition improves post op. Dispo - Continued ICU stay for at least [address] Guevara. Full Code \Resident Physician Supervision Note: Dr. Porras was resident physician during care of patient. I separately evaluated patient and did history and exam. I discussed the case with the resident and generally agree with the findings and plan. Patient now with temporary pacemaker, dopamine off. Renal consult in the setting of kidney transplant of unclear etiology with ERIN, started IV hydration. Patient critically ill due to symptomatic bradycardia requiring vasoactive medication. Patient requiring ICU level monitoring given temporary transvenous pacemaker. I have personally spent 60 minutes of critical care time in the direct management of this patient. This is a life/limb threatening event. This includes time spent evaluating patient, direct bedside care, chart review, placing orders, interpretation of diagnostic studies, discussion with consultants, patient, and family members, as well as other required patient management activities. This time is exclusive of all separately billable procedures, and teaching time and separate from and in addition to any other critical care service time. Documented By: Carlos Meek DO Resident Involvement: Resident Care Provided Care Provided: [facility] Medicine
[2017-04-11] MEDS ORDERED: INSULIN ASPART 100 UNITS/ML 3 ML PEN SC SCH (08:00)
[2017-04-11] MEDS ORDERED: ONDANSETRON 4MG OD TAB PO ONE (08:00)
[2017-04-11] MEDS ORDERED: PHARMACY GLYCEMIC MGMT CONSULT PRN (08:15)
[2017-04-11] MEDS ORDERED: INSULIN GLARGINE SOLOSTAR 100 UNITS/ML 3 ML PEN SC ONE (08:15)
--- NOTE | 2017-04-11 08:23 | Progress Note ---
Progress Note Date of Service Apr 11, 2017. Progress Note Internal Medicine, Hospitalist, f/u Progress Note Subjective Patient seen and examined the bedside in the ICU. Patient had presyncopal vs syncopal event over the night time. As per the note from the felt tipping machine tender hospitalist who was present the patient was appearing unstable with a low heart rate, code dejah was called. At bedside the patient mentating well and is otherwise asymptomatic aside with BP of 125 systolic and his HR was in the 30s when I arrived with significant pauses just seen on EKG. Atropine 0.5mg was given x 1 dose with no response. Pacer pads were in place, however, with the patient currently tolerating the low heart rate, external pacing was not needed. He was transferred to the ICU for monitoring overnight. Patient then started on dopamine 5mcg/kg/min for support while SBP of 170 and HR in the 70s. However, within 30 minutes of starting the dopamine, his SBP went up to 213 and the dopamine was held. His HR remains in the low 70s with occasional pauses. He was given 1 gram Ca gluconate IV. All AV milo blocking agents were held. He was given half of his typical Lantus dose of 45 Units prior to sleep and CPAP was ordered for him with a h/o SUJIT and typically wearing a CPAP mask at home. Patient denies loss of consciousness and denies falling down. Denies feeling aura symptoms or chest pain or shortness of breath before this event on the telemetry wards which subsequently led to his transfer to the ICU Objective General: awake, alert, knows that he is in the ICU Lungs: clear on anterior auscultation Chest: has pads placed on chest Heart rate: 45 beats per minute, sinus rhythm A/P: Patient currently under ICU level of care Symptoms as above likely correlates to bradycardia As per the night time hospitalist note will plan to externally pace if patient drops below 30bpm or becomes symptomatic Would likely need Cardiology physician to evaluate whether this event or presyncope vs syncope with associated bradycardia will need permanent pacing device Continue holding home does metoprolol Blood pressure stable with systolic in the 150s. Continue holding home dose amlodipine Carotid ultrasound negative for stenosis DVT prophylaxis Would appreciate further recommendations from Business Intelligence Consultant physician
--- NOTE | 2017-04-11 09:20 | Clinical Documentation Query ---
TARIK Souza : CLINICAL DOCUMENTATION QUERIES QUERY 1 OF 3 Patient is a 51 year old male admitted for evaluation of syncopal episode. Patient reporting intermittent lightheadedness for past month. EKG the evening of admission demonstrated sinus arrest. Repeat EKG demonstrated the same. Patient was given atropine, transferred to ICU for dopamine infusion, and calcium gluconate. Rag Room Supervisor and cardiology consultations ordered. As able, consider clarification of the etiology of syncope as clinically appropriate as "syncope" calls into question the medical necessity of admission by third green party reviewers. In your clinical opinion is this patient being managed for: ( ) Syncope due to sinus arrest ( ) Not Agree ( ) Other explanation of clinical findings (Please Explain) ( x ) Unable to determine (Please Define) ( ) Need to Discuss The medical record reflects the following clinical findings, treatment, and risk factors. Clinical Indicators: As above Treatment: PCU to ICU admission, telemetry, sculpture instructor and cardiology consultation, serial labs, serial EKG's, serial cardiac enzymes, IVF, dopamine, atropine, calcium gluconate Risk Factors: Beta madeleine, calcium channel madeleine use QUERY 2 OF 3 Admission BUN, creatinine, and estimated GFR were 14 mg/dl, 1.30 mg/dl, and 64 ml/min. This a.m. (04/11), repeat values are 17 mg/dl, 1.70 mg/dl, and 46 ml/min. He is being treated with IVF and monitored with serial chemistries. In your clinical opinion is this patient being managed for: ( x ) Acute kidney failure ( ) Not Agree ( ) Other explanation of clinical findings (Please Explain) ( ) Unable to determine (Please Define) ( ) Need to Discuss The medical record reflects the following clinical findings, treatment, and risk factors. Clinical Indicators: As above Treatment: He is being treated with IVF and monitored with serial chemistries. Risk Factors: Renal transplant status, DM, hypertension QUERY 3 OF 3 BMI noted to be 44.5 kg/m*m. In order to capture this clinically relevant information, an associated diagnosis must exist within the medical record. In your clinical opinion is this patient: ( x ) Obese/morbidly obese ( ) Not Agree ( ) Other explanation of clinical findings (Please Explain) ( ) Unable to determine (Please Define) ( ) Need to Discuss The medical record reflects the following clinical findings, treatment, and risk factors. Clinical Indicators: Treatment: Diabetic diet, manhole stripper consultation Risk Factors: Caloric intake >> caloric expenditure, physical inactivity Please clarify and document your clinical opinion in the progress notes and discharge summary. Terms such as "probable", "suspected", "likely", "questionable", "possible", or "still to be ruled out" are acceptable. IF IN AGREEMENT, YOU MUST DOCUMENT ABOVE DIAGNOSTIC STATEMENT IN DAILY PROGRESS NOTES AND DISCHARGE SUMMARY. This document is not part of the patient's record. Thank You, Carlos Kapadia, RN [phone]
--- NOTE | 2017-04-11 09:31 | ECHOCARDIOGRAM REPORT ---
*NOTICE TO RECEIVING [employer] This information is strictly Confidential and protected under [place] law. [place] law prohibits you from making any further disclosure of this information unless further disclosure is expressly permitted by the written consent of the person to whom it pertains or is authorized by law. A general authorization for the release of medical or other information is not sufficient for this purpose. Hospital accepts no responsibility if the information is made available to any other person, INCLUDING THE PATIENT. Interpretation Summary * Name: DANIEL NELSON Study Date: 04/11/2017 06:37 AM BP: 155/52 mmHg * [facility] HR: 52 * : 1965 (M/d/yyyy) Gender: Male Height: 74 in * Age: 51 yrs Ethnicity: CA Weight: 363 lb * Ordering Physician: David Fraire * Performed By: Adry Gandhi * * Reason For Study: SYNCOPE * BSA: 2.8 m2 * -- Conclusions -- * Normal LV chamber size with moderate concentric LVH. * Normal LV systolic function, EF 60-65%. * No segmental left ventricular wall motion abnormalities are noted. * Poorly visualized valvular structures without significant stenosis or regurgitation by Doppler. * Aortic valve sclerosis mild, without significant aortic valvular stenosis. Procedure Details * A complete two-dimensional transthoracic echocardiogram was performed (2D, M-mode, Doppler and color flow Doppler). * The study was technically limited. * There were technical limitations due to patient's inability to cooperate, body habitus, and poor positioning. * A contrast injection of Definity was performed to improve assessment of LV function. * Contrast was injected into an intravenous site in the right arm. * One vial of Definity ultrasound contrast was diluted in normal saline to a total volume of 10 ml. A total of '3' ml of solution was administered during imaging. * Lot # [id number] of Definity utilized for procedure. * Expiration date 04/20. * The attending nurse who injected the contrast agent was albertina murray RN. Left Ventricle * The left ventricle is normal in size. * There is moderate concentric left ventricular hypertrophy. * Ejection Fraction = 60-65%. * Left ventricular systolic function is normal. * No segmental left ventricular wall motion abnormalities are noted. * The left ventricular wall motion is normal. Right Ventricle * The right ventricle is not well visualized. Atria * The left atrium is mildly dilated. * Right atrial size is normal. * There is no evidence of atrial septal defect, but resolution does not allow assessment for a patent foramen ovale. Mitral Valve * The mitral valve is not well visualized. * There is no mitral valve stenosis. * There is no mitral regurgitation noted. Tricuspid Valve * The tricuspid valve is not well visualized. * There is no tricuspid stenosis. * No tricuspid regurgitation. Aortic Valve * The aortic valve is not well visualized. * The aortic valve is trileaflet. * Aortic valve sclerosis mild, without significant aortic valvular stenosis. * There is no significant aortic regurgitation. Pulmonic Valve * The pulmonary valve is not well seen, but the Doppler examination is normal without significant regurgitation or stenosis. Great Vessels * The aortic root is normal size. Pericardium/Pleural * There is no pericardial effusion. Left Ventricular Diastolic Function * Diastolic dysfunction, Grade II (pseudonormalization pattern). MMode 2D Measurements and Calculations IVSd 1.6 cm IVSs 2.3 cm LVIDd 6.1 cm LVIDs 4.2 cm LVPWd 1.4 cm LVPWs 2.1 cm IVS/LVPW 1.1 FS 30.7 % EDV(Teich) 187.1 ml ESV(Teich) 79.9 ml EF(Teich) 57.3 % EDV(cubed) 227.3 ml ESV(cubed) 75.6 ml EF(cubed) 66.7 % % IVS thick 47.8 % % LVPW thick 46.8 % LV mass(C)d 431.6 grams LV mass(C)dI 154.1 grams/m\S\2 LV mass(C)s 466.0 grams LV mass(C)sI 166.4 grams/m\S\2 CO(Teich) 4.7 l/min CI(Teich) 1.7 l/min/m\S\2 SV(Teich) 107.3 ml SI(Teich) 38.3 ml/m\S\2 CO(cubed) 6.7 l/min CI(cubed) 2.4 l/min/m\S\2 SV(cubed) 151.7 ml SI(cubed) 54.2 ml/m\S\2 ACS 1.7 cm asc Aorta Diam 3.5 cm LVOT diam 2.5 cm LVOT area 5.0 cm\S\2 LVAd ap4 31.8 cm\S\2 LVLd ap4 8.4 cm EDV(MOD-sp4) 102.0 ml LVAs ap4 20.5 cm\S\2 LVLs ap4 7.7 cm ESV(MOD-sp4) 44.8 ml EF(MOD-sp4) 56.1 % LVAd ap2 24.1 cm\S\2 LVLd ap2 8.0 cm EDV(MOD-sp2) 58.8 ml LVAs ap2 14.7 cm\S\2 LVLs ap2 7.0 cm ESV(MOD-sp2) 25.7 ml EF(MOD-sp2) 56.3 % CO(MOD-sp4) 2.5 l/min CI(MOD-sp4) 0.90 l/min/m\S\2 SV(MOD-sp4) 57.2 ml SI(MOD-sp4) 20.4 ml/m\S\2 CO(MOD-sp2) 1.5 l/min CI(MOD-sp2) 0.52 l/min/m\S\2 SV(MOD-sp2) 33.1 ml SI(MOD-sp2) 11.8 ml/m\S\2 Doppler Measurements and Calculations MV E max sallie 108.7 cm/sec MV A max sallie 61.1 cm/sec MV E/A 1.8 MV dec time 0.23 sec Ao V2 max 145.2 cm/sec Ao max PG 8.4 mmHg Ao max PG (full) 2.6 mmHg MIKEY(V,A) 4.1 cm\S\2 MIKEY(V,D) 4.1 cm\S\2 LV V1 max PG 5.9 mmHg LV V1 max 121.3 cm/sec PA V2 max 75.7 cm/sec PA max PG 2.3 mmHg TR max sallie 347.5 cm/sec
[2017-04-11] MEDS ORDERED: LEVALBUTEROL 1.25MG/3ML NEB INH STA (09:43)
[2017-04-11] MEDS ORDERED: LIDOCAINE HCL 1% 20 ML VIAL ONE (09:46)
[2017-04-11] MEDS ORDERED: BACITRACIN 50000 UNIT VIAL ONE (09:46)
[2017-04-11] MEDS ORDERED: BUPIVACAINE 0.5 % 5 MG/1 ML MPF 30ML VIAL ONE (09:46)
[2017-04-11] MEDS ORDERED: FENTANYL CITRATE INJ 50 MCG/1 ML 2 ML VIAL ONE (09:47)
[2017-04-11] MEDS ORDERED: KEFZOL SPECIAL PROCEDURE STOCK 1 GM ADDVIAL IV ONE (09:47)
[2017-04-11] MEDS ORDERED: MIDAZOLAM HCL 5 MG/ML 1 ML VIAL ONE (09:47)
[2017-04-11 09:48] LABS: LYME DISEASE AB IGG POS (NEG); LYME DISEASE AB IGM POS (NEG)
[2017-04-11] MEDS ORDERED: CEFAZOLIN IV 3,000 MG in DEXTROSE 5% 50ML IV SCH (10:30)
--- NOTE | 2017-04-11 10:39 | Procedure Note ---
Procedure Note Date of Service Apr 11, 2017. Procedure Note Procedure performed: Temporary transvenous pacemaker [facility] Nurse: Jose Luis Tripp MD Indication: Syncope. Sinus arrest. The patient is a 51-year-old gentleman with no known cardiac history who was noted to have syncope. Telemetry monitoring revealed episodes of sinus arrest and resultant pauses. He also had very brief run of polymorphic VT. Based on his symptoms and conduction disease felt to be a good candidate for a pacemaker. Immediately prior to planned implantation he was discovered to have serology concerning for acute Lyme carditis. As such a permanent device was deferred and we elected to implant a temporary pacemaker. Procedure in detail: The patient was informed of the risks benefits and alternatives to the intended procedure. He understood such which proceed. He was taken to the electrophysiology suite in a fasting state. The right internal jugular area was prepped and draped in usual sterile fashion. This area was anesthetized using subcutaneous administration of lidocaine solution. The right internal jugular vein was subsequently access using modified Selinger technique under ultrasound guidance and a venous sheath was placed at the site over guidewire. The sheath was used to facilitate passage of a balloon tip pacing lead to the right ventricular apex under fluoroscopic guidance. Adequate thresholds were obtained prior to securing the sheath and pacing lead to into place. The patient tolerated procedure well. There was some transient hypoxia associated with the patient lying in a supine position and coughing. This resolved at the conclusion of the procedure. Impression: Successful placement of right internal jugular transvenous temporary pacemaker.
[2017-04-11] MEDS ORDERED: LACTATED RINGER'S 1000ML 1,000 ML IV SCH (11:00)
--- NOTE | 2017-04-11 11:04 | CARDIOLOGY CONSULTATION ---
DATE OF CONSULTATION: 04/11/2017 CONSULTATION REQUESTED BY: Dr. Fraire. REASON FOR CONSULTATION: Syncope. HISTORY OF PRESENT ILLNESS: Mr. Fuller is a very pleasant 51-year-old gentleman with a complex medical history. He presented to [facility] in the evening of 04/10/2017 with a report of a syncopal episode. At that time the patient stated that he had not been feeling well for the last month or so. He states he had just been tired and run down and not feeling himself. He has been having off and on episodes of lightheadedness and dizziness over that month but he did not get checked out. Then, early in the afternoon of 04/10/2017, the patient had a syncopal event. He states that he was at home and only remembers suddenly becoming very lightheaded and feeling a walker of warmth to his head and then he lost consciousness. He does not remember falling. When he woke up though, he did have some knee pain, believing that he may have fallen onto his knees. This was not witnessed but a family member saw him shortly thereafter and awoke him and he was brought into the Emergency Department. Initial evaluation was unremarkable. I did discuss the case with Dr. Fraire and the patient was admitted to telemetry. Later that evening, the patient became very lightheaded when standing up to use a urinal and he became bradycardic into the 30s with sinus pauses. He was given atropine. I was contacted by Dr. Sierra, the hospitalist, and it was recommended the patient be moved to the intensive care unit and placed on a dopamine drip as well as external pacer pads. The patient was relatively stable overnight, tolerating the dopamine drip well. Later in the morning though on 04/11/2017, the patient was seen and examined at the bedside. His heart rates continued to remain in the 40s despite the dopamine drip. The patient was not feeling well, lightheaded, dizzy and nauseated. He was given Zofran for the nausea, and again, he corroborated the above story, but he denies experiencing any chest pain or shortness of breath. He denies any recent tick bites and denies any arthralgias, but states he may have had a slight fever off and on for the last month, but he states he had been compliant with all his medications. PAST SURGICAL HISTORY: 1. Donor renal transplant 04/2015. 2. Toe amputation. 3. AV fistula on the left. 4. Cataract surgery. MEDICAL ILLNESSES: 1. End-stage renal disease, status post donor transplant. 2. Postoperative transplant course complicated by slight atrial fibrillation without documented recurrence. 3. Hypertension. 4. Obesity. 5. Severe obstructive sleep apnea. FAMILY HISTORY: Noncontributory. SOCIAL HISTORY: The patient denies any alcohol, tobacco or recreational drug use. He is , he lives alone. His children are in good health. He is currently on disability. REVIEW OF SYSTEMS: As per HPI. All other review of systems reviewed and negative at this time. ALLERGIES: POLLEN. MEDICATIONS AN OUTPATIENT: 1. Metoprolol tartrate 25 mg b.i.d. 2. Amlodipine 5 mg daily. 3. Insulin as directed. 4. Prilosec daily. 5. Prograf b.i.d. 6. CellCept b.i.d. PHYSICAL EXAMINATION: VITAL SIGNS: Temperature 36.7, pulse 45, respiratory rate 12, blood pressure 155/52. GENERAL: Awake, alert, in mild distress with nausea and fatigue, answering questions appropriately. HEENT: Normocephalic, atraumatic. Pupils equal, round and reactive to light and accommodation. Extraocular muscles intact. Anicteric sclerae. Moist mucous membranes. NECK: No JVD, no bruit. CARDIOVASCULAR: Irregularly irregular and slow. Unable to appreciate murmurs, rubs or gallops. PULMONARY: Clear to auscultation bilaterally. No rales, rhonchi or wheezing. ABDOMEN: Bowel sounds x4, soft. No rebound, guarding, tenderness. No organomegaly. EXTREMITIES: No clubbing, cyanosis or edema. Right first toe amputation. +1 pedal pulses bilaterally. SKIN: Warm and dry. TEST RESULTS AND LABORATORY STUDIES OF SIGNIFICANCE: INR of 1. Sodium 137, potassium 5, BUN 17, creatinine 1.7. A stat Lyme titer was sent and is pending at this moment. A 12-lead EKG upon presentation, independently reviewed at this time shows sinus rhythm with first-degree AV block at 68 beats per minute, poor R-wave progression across the precordium, possible inferior and lateral infarcts, no previous studies available for comparison. A 2D echocardiogram was read as normal LV chamber size with moderate concentric LVH, normal LV systolic function, EF 60-65%, without regional wall motion abnormality, grade 2 diastolic dysfunction, poorly visualized valvular structures with no significant stenosis or regurgitation by Doppler, no significant pericardial effusion. IMPRESSION: 1. Sick sinus syndrome with significant sinus pauses and syncope. 2. Remote history of paroxysmal atrial fibrillation in the postoperative setting. 3. End-stage renal disease, status post donor renal transplant. 4. Hypertension. 5. Obesity. 6. Obstructive sleep apnea. RECOMMENDATIONS: It is my pleasure to see Mr. Fuller in consultation today. Given the patient's presentation, his symptoms and the telemetry findings, I believe the patient at this time is suffering from sick sinus syndrome. The only reversible cause at this point that I believe needs to be ruled out would be Lyme disease; however, I believe he is a low risk for this given the fact that he has not had any tick bites and his stat Lyme titer is pending at this time. I have discussed the case with Dr. Tripp who is in agreement that the patient requires urgent dual-chamber permanent pacemaker placement and he will be taken to the electrophysiology lab at this time. Further recommendations to follow.
[2017-04-11] MEDS ORDERED: INSULIN HUMAN REGULAR IV BOLUS 6 UNIT in SYRINGE 0 ML IV SCH (11:30)
[2017-04-11] MEDS ORDERED: INSULIN REGULAR 250 UNITS in SODIUM CHLORIDE 0.9% 250ML 250 ML IV SCH (11:30)
--- NOTE | 2017-04-11 11:43 | Clinical Documentation Query ---
TARIK Souza : CLINICAL DOCUMENTATION QUERY Please list the indication for documented renal transplant in 2015. In your clinical opinion is this patient being managed for: (x ) End stage renal disease s/p cadaverous transplant ( ) Not Agree ( ) Other explanation of clinical findings (Please Explain) ( ) Unable to determine (Please Define) ( ) Need to Discuss The medical record reflects the following clinical findings, treatment, and risk factors. Clinical Indicators: As above Treatment: Serial chemistries, Tacrolimus Risk Factors: Hypertension, DM Please clarify and document your clinical opinion in the progress notes and discharge summary. Terms such as "probable", "suspected", "likely", "questionable", "possible", or "still to be ruled out" are acceptable. IF IN AGREEMENT, YOU MUST DOCUMENT ABOVE DIAGNOSTIC STATEMENT IN DAILY PROGRESS NOTES AND DISCHARGE SUMMARY. This document is not part of the patient's record. Thank You, Carlos Kapadia, RN [phone]
[2017-04-11] MEDS ORDERED: CEFTRIAXONE SOD INJ 2000 MG in DEXTROSE 5% 50ML IV SCH (12:00)
[2017-04-11] MEDS ORDERED: ACETAMINOPHEN 325 MG TAB PO PRN (12:00)
--- NOTE | 2017-04-11 12:03 | Pharmacy Progress Note ---
Glycemic Control Intl Consult Date of Service Apr 11, 2017. Scope Glycemic Pharmacist consulted by Dr Meek on 04/11/17 for glycemic control and to write orders per [facility] inpatient glycemic control protocol Objective Weight (Kilograms): 157.200 Accuchecks BSG (last 24hrs): Test 04/10/17 14:35 04/10/17 17:18 04/10/17 20:07 04/10/17 21:10 Random Glucose 193 mg/dl (70-99) Bedside Glucose 218 mg/dl (70-99) 172 mg/dl (70-99) 186 mg/dl (70-99) Test 04/10/17 22:26 04/11/17 04:38 04/11/17 05:25 04/11/17 11:19 Bedside Glucose 150 mg/dl (70-99) 244 mg/dl (70-99) 344 mg/dl (70-99) Random Glucose 312 mg/dl (70-99) Laboratory Data (last 24hrs) Test 04/10/17 14:35 04/11/17 05:25 Anion Gap 8.0 mmol/L 11.0 mmol/L BUN/Creatinine Ratio 10.6 9.7 Blood Urea Nitrogen 14 mg/dl 17 mg/dl Creatinine 1.30 mg/dl 1.70 mg/dl Potassium Level 4.6 mmol/L 5.0 mmol/L Sodium Level 137 mmol/L 137 mmol/L White Blood Count 7.08 K/uL 16.55 K/uL Red Blood Count 5.32 M/uL Hemoglobin 14.1 g/dL Hematocrit 42.6 % Mean Corpuscular Volume 80.1 fL Mean Corpuscular Hemoglobin 26.5 pg Mean Corpuscular Hemoglobin Concent 33.1 g/dl Platelet Count 190 K/uL Mean Platelet Volume 9.5 fL Neutrophils (%) (Auto) 73.2 % Lymphocytes (%) (Auto) 16.8 % Monocytes (%) (Auto) 7.5 % Eosinophils (%) (Auto) 2.0 % Basophils (%) (Auto) 0.4 % Neutrophils # (Auto) 5.18 K/uL Lymphocytes # (Auto) 1.19 K/uL Monocytes # (Auto) 0.53 K/uL Eosinophils # (Auto) 0.14 K/uL Basophils # (Auto) 0.03 K/uL Recent Pertinent Medications Outpatient Anti-diabetic Regimen: * Insulin Glargine 100 units/mL 50 units at bedtime * Humalog 4 units TIDM plus CF 50 scale for elevated BSGs The patient is currently receiving: * Basal insulin: Lantus 20 units every 24 hours Risk Factors for Insulin Resistance: * Infection * IVF * Diet Assessment & Plan ASSESSMENT: * 51 yo T2DM M admitted to ICU wit sick sinus syndrome * Pt made NPO for pacer today by cardiology * Last night, half dose of Lantus given as compared to home regimen and Novolog discontinued this morning for unknown reason * BSG now 344 s/p pacer placement and insulin drip will be initiated per ICU protocol * Continue Lantus BID to prevent basal deficiency and allow us to titrate off drip in 24-48 hours easier * Will keep an eye on recent Scr bump, as that, in addition to his volume status , could effect SQ insulin absorption * ADA & AACE recommend a goal blood sugar range 140-180 mg/dl for the majority of critically ill & non-critically ill patients. PLAN FOR INPATIENT GLYCEMIC CONTROL: * Starting IV insulin infusion per high stress protocol * Goal Range 100 - 180 mg/dl * In the critical care setting, continuous IV insulin infusion has been shown to be the best method for achieving glycemic targets. * Basal insulin with LANTUS 20 units SQ BID in addition to insulin drip * Correctional Insulin with NOVOLOG [facility] * A1c added to AM labs as patient with unknown outpatient glycemic control * Please note that the plan above was derived based on current level of insulin resistance and hospital stress. These recommendations are appropriate for inpatient admission only. Plan of care upon discharge will need to be reassessed to avoid potential outpatient hypo/hyperglycemia. Thank you.
[2017-04-11] MEDS: INSULIN ASPART 100 UNITS/ML 3 ML PEN SC SCH ×3 (14:38→21:00)
[2017-04-11] MEDS: MYCOPHENOLATE MOFETIL 250 MG CAP (CELLCEPT) PO SCH ×2 (14:41→21:05)
[2017-04-11] MEDS: TACROLIMUS 1 MG CAP PO SCH ×2 (14:41→21:04)
--- NOTE | 2017-04-11 18:27 | Cardiology Consultation ---
Cardiology Consultation Date of Consultation: Apr 11, 2017. Requesting Physician: Ismael Reason for Consultation: bradycardia Pt evaluation today including: conversation w/ patient, physical exam, chart review, lab review, review of studies, conversation w/ finance consultant, review of inpatient medication list, conversation w/ attending History of Present Illness Patient is a 51-year-old gentleman with a history of renal transplant but no known cardiac disease who was admitted to [facility] after an episode of syncope. Patient states for approximately 1 month he has not been feeling well. This included the development of some constitutional symptoms such as some subjective fevers chills and body aches. He also has had some nausea recently. He describes intermittent episodes of dizziness and lightheadedness which not appear to be associated with any activity or change in position. Yesterday did suffer a actual syncopal episode. This [facility]. He was noted to have some significant bradycardia and eventually had significant pauses requiring administration of atropine. At a P did not fix the bradycardia and eventually was placed on transcutaneous pacer and sent to the intensive care unit for monitoring. At the time I entered the patient is not feeling well. He has generalized fatigue and was also nauseated. He did have a period of vomiting earlier this morning. He states that in general he is a sedentary individual. He is not 1 [place] exposed to outdoor activity. Past Medical/Surgical History Diabetes mellitus Renal failure status post renal transplant Hypertension Obesity Obstructive sleep apnea Past surgical history Renal transplant 2015 Toe amputation Av fistula Cataracts Family History FH: diabetes mellitus FATHER Noncontributory Social History Smoking Status: Never Smoker History of Alcohol Use: No Currently lives with his parents locally Review of Systems Per HPI All Other Systems: Reviewed and Negative Allergies Coded Allergies: No Known Allergies (Verified , 08/16/02) Medications Current Inpatient Medications Medications (Trade) Dose Ordered Sig/Jamilah Route Start Time Stop Time Status Last Admin Dose Admin Albuterol (Ventolin Hfa Inhaler) 2 puffs Q6H PRN INH 04/10/17 16:45 05/10/17 16:44 Mycophenolate Mofetil (Cellcept Cap) 500 mg Q12 PO 04/10/17 21:00 05/10/17 20:59 04/11/17 14:41 500 MG Tacrolimus (Prograf Cap) 3 mg BID PO 04/10/17 21:00 05/10/17 20:59 04/11/17 14:41 3 MG Glucose (Glucose 40% Gel) 15-30 GRAMS 15 GRAMS... UD PRN PO 04/10/17 16:45 05/10/17 16:44 Glucose (Glucose Chew Tab) 4-8 Tablets 4 Tabl... UD PRN PO 04/10/17 16:45 05/10/17 16:44 Dextrose (Dextrose 50% 50ML Syringe) 25-50ML OF 50% DW IV FOR... UD PRN IV 04/10/17 16:45 05/10/17 16:44 Glucagon (Glucagon Inj) 1 mg UD PRN SQ 04/10/17 16:45 05/10/17 16:44 Dopamine HCl/ Dextrose 250 ml @ 0 mls/hr Q0M IV 04/10/17 22:15 05/10/17 22:14 04/10/17 22:32 17.4 MLS/HR Ondansetron HCl (Zofran Inj) 4 mg Q6H PRN IV 04/11/17 01:30 05/11/17 01:29 04/11/17 05:19 4 MG Miscellaneous Information (Consult Glycemic Management Pharmacy) 1 ea UD PRN N/A 04/11/17 08:15 05/11/17 08:14 Ceftriaxone Sodium 2000 mg/ Dextrose 70 ml @ 140 mls/hr Q24H IV 04/11/17 12:00 04/21/17 11:59 04/11/17 11:09 140 MLS/HR Lactated Ringer's 1,000 ml @ 100 mls/hr Q10H IV 04/11/17 11:00 05/11/17 10:59 04/11/17 11:10 100 MLS/HR Insulin Human Regular 250 units/ Sodium Chloride 252.5 ml @ 0 mls/hr DAILY@1130 IV 04/11/17 11:30 05/11/17 11:29 04/11/17 12:08 5.9 MLS/HR Insulin Aspart (novoLOG ASPART) SLIDING SCALE [facility] 04/11/17 12:00 05/11/17 11:59 Insulin Glargine (Lantus Solostar Pen) 20 units BID SC 04/11/17 21:00 11/8/17 20:59 Acetaminophen (Tylenol Tab) 650 mg Q4H PRN PO 04/11/17 12:00 05/11/17 11:59 Physical Exam Vital Signs Past 12 Hours Date Time Temp Pulse Resp B/P (MAP) Pulse Ox O2 Delivery O2 Flow Rate FiO2 04/11/17 18:14 47 25 99 04/11/17 18:00 47 20 118/55 (76) 98 Oxymask 5.0 04/11/17 16:12 99 Nasal Cannula 5.0 04/11/17 15:31 37.0 45 21 130/54 (79) Nasal Cannula 5.0 04/11/17 15:30 47 25 99 04/11/17 15:01 47 16 112/58 (76) 04/11/17 15:00 48 21 97 04/11/17 14:31 50 21 113/67 (82) 97 04/11/17 14:30 48 26 98 04/11/17 14:02 43 27 113/49 (70) 98 04/11/17 14:00 45 27 98 Oxymask 8.0 04/11/17 13:31 48 26 117/68 (84) 04/11/17 13:30 51 26 97 04/11/17 13:17 61 28 134/66 (88) 97 04/11/17 13:02 79 26 131/64 (86) 96 04/11/17 13:00 59 27 97 04/11/17 12:46 49 24 132/60 (84) 04/11/17 12:32 47 20 132/52 (78) 95 04/11/17 12:30 47 25 96 Oxymask 8.0 04/11/17 12:16 51 23 117/53 (74) 04/11/17 12:02 47 24 122/59 (80) 95 04/11/17 12:00 45 27 94 04/11/17 11:33 37.2 41 22 114/63 (80) 97 Non-Rebreather 15.0 04/11/17 11:30 97 Nasal Cannula 5.0 04/11/17 11:30 41 17 96 04/11/17 11:17 42 15 128/58 (81) 95 04/11/17 11:15 42 16 94 04/11/17 11:05 45 25 133/68 (89) 90 04/11/17 10:45 60 16 102/75 (84) 96 Non-Rebreather 15 04/11/17 10:30 40 16 98/78 (85) 96 Nasal Cannula 4 04/11/17 09:32 44 16 169/56 (93) 98 Nasal Cannula 5.0 04/11/17 09:30 43 15 96 04/11/17 09:02 48 16 138/70 (92) 95 04/11/17 09:00 46 23 95 04/11/17 08:37 40 13 150/49 (82) 96 Nasal Cannula 5.0 04/11/17 08:30 42 15 97 04/11/17 08:01 45 23 141/74 (96) 92 04/11/17 08:00 96 Nasal Cannula 5.0 04/11/17 08:00 47 23 93 04/11/17 07:32 37.1 34 22 132/57 (82) 91 Nasal Cannula 5.0 04/11/17 07:30 43 24 92 04/11/17 07:01 45 20 123/48 (73) 94 04/11/17 07:00 44 17 94 The patient is alert and oriented. He appeared uncomfortable and fatigued. He answered all questions appropriately. Obese HEENT: Pupils are equal and reactive to light and accommodation. Extraocular movements are intact. The sclerae are anicteric. Neuro: Cranial nerves intact Neck: Patient's neck is supple. He has palpable carotid pulses bilaterally without bruits on auscultation. There is no evidence of jugular venous distention. The thyroid is not enlarged. Lungs: Clear to auscultation bilaterally. He has good air movement without use of accessory muscles. No rales wheezes or rhonchi. Cardiac: Heart demonstrates an irregular rate and rhythm. Normal S1 and S2. No murmurs on examination. Pulses: The patient has palpable radial pulses bilaterally that are equal in intensity Extremities: There was no evidence of hypoperfusion. There is no cyanosis or clubbing. There is no edema. He had a fistula in the left forearm with a palpable thrill Skin: I did not appreciate any rashes on examination today. Data Laboratory Results: Last 24 Hours Test 04/10/17 20:07 04/10/17 20:25 04/10/17 21:03 04/10/17 21:10 Bedside Glucose 172 mg/dl 186 mg/dl Troponin I 0.093 ng/ml Prothrombin Time 10.7 SECONDS Prothromb Time International Ratio 1.0 Test 04/10/17 22:26 04/11/17 04:38 04/11/17 05:25 04/11/17 08:43 Bedside Glucose 150 mg/dl 244 mg/dl White Blood Count 16.55 K/uL Red Blood Count 5.21 M/uL Hemoglobin 14.2 g/dL Hematocrit 42.1 % Mean Corpuscular Volume 80.8 fL Mean Corpuscular Hemoglobin 27.3 pg Mean Corpuscular Hemoglobin Concent 33.7 g/dl RDW Standard Deviation 44.1 fL RDW Coefficient of Variation 15.0 % Platelet Count 267 K/uL Mean Platelet Volume 9.9 fL Sodium Level 137 mmol/L Potassium Level 5.0 mmol/L Chloride Level 108 mmol/L Carbon Dioxide Level 18 mmol/L Anion Gap 11.0 mmol/L Blood Urea Nitrogen 17 mg/dl Creatinine 1.70 mg/dl Est Creatinine Clear Calc Drug Dose 84.8 ml/min Estimated GFR () 53.3 Estimated GFR (Non- 46.0 BUN/Creatinine Ratio 9.7 Random Glucose 312 mg/dl Calcium Level 9.7 mg/dl Magnesium Level 1.7 mg/dl Troponin I 0.079 ng/ml Beta-Hydroxybutyric Acid 16.51 mg/dL Lyme Disease IgG Antibody POS Lyme Disease IgM Antibody POS Test 04/11/17 11:19 04/11/17 13:13 04/11/17 15:42 04/11/17 17:02 Bedside Glucose 344 mg/dl 351 mg/dl 263 mg/dl 245 mg/dl Imaging: Chest x-ray the time of admission revealed cardiomegaly. Carotid duplex and not reveal any evidence of significant stenosis. Head CT is not reveal any acute intracranial abnormality EKG: Sinus bradycardia with periods of sinus arrest Telemetry reviewed: Periods of sinus arrest Assessment & Plan Symptomatic bradycardia: The patient appears to have been having symptoms associated with sinus node disease. He had demonstrated sinus arrest here today associated with symptoms. This likely accounts for his syncopal episode yesterday and symptoms of dizziness and lightheadedness leading up to his admission. The etiology of this dysfunction is unclear. He did have positive Lyme titers, but sinus node dysfunction is a less common presentation of Lyme than true AV milo dysfunction. At this time it is unclear whether this is the etiology for his bradycardia. However, it seem reasonable to offer him a period of treatment prior to committing him to a permanent pacemaker. He also appears to be ill and has had a viral prodrome which could be consistent with Lyme disease. He is immunocompromised and may be harboring another occult infection. We had a discussion regarding pacing at this time we will proceed with a temporary pacemaker in order to provide treatment for Lyme disease would perform an additional evaluation to exclude other causes or source of infection.
[2017-04-11] MEDS ORDERED: SODIUM CHLORIDE 0.9% 1000ML 1,000 ML IV SCH (19:00)
--- NOTE | 2017-04-11 19:35 | Nephrology Consultation ---
Nephrology Consultation Date of Consultation: Apr 11, 2017. Attending Physician: Dr Fraire Requesting Physician: Dr Meek Reason for Consultation: ERIN, electrolytes, renal transplant History of Present Illness 51 year old male renal txplt pt admitted here last evening after syncopal event at home whom I'm asked to see for ERIN, hyperkalemia. PMH includes morbid obesity, HTN, DM on insulin, ESRD since 2005 and s/p DDRTx 04/2015 [facility] w/ baseline creatinine 1.2-1.4. He has actually been feeling poorly for about a month, which started with 3-4 days of F to 101-102 and once as high as 104 at home. States he saw his pcp who took CXR but was given no abtx. Also in this timeframe noted worsened fatigue, diffuse aching joints and flu like sx, minimal /poor appetite, and a spluttering cough productive at times of yellow and other times of clear phlegm. He also had periods of lightheadedness in this timeframe severe enough several times to make him sit down. No voiding sx, no rash, no GI sx in this prehospital timeframe. His presenting creatinine yesterday was at baseline w/ K 4.6. he was transferred to the ICU last evening after he winston'd down to 30s while using urinal. He was started on dopamine and moved to ICU, where he had temporary pacemaker placement today. He is under consideration for permanent pacer but will likely be observed for a day or so first. He also developed emesis last evening and has had several episodes since then>nonbilious, nonbloody. In the ICU there was an arrhythmia concerning for torsades de pointe and IV mag was given. Lyme serologies (IgG, IgM) are positive, though ECG tracings reportedly not completely c/w lyme associated pericarditis. [place] he is rarely outside. He does have a dog however. He also lives w/ his mother who is not an outdoors woman >> she reports she recently found a tick on herself in the garage. Past Medical/Surgical History Medical Problems: (1) Elevated troponin Status: Acute (2) Syncope Status: Acute -ESRD; on HD from [id number]; DDRTx 04/30/2015, baseline creatinine 1.2-1.4 -SUJIT on CPAP -DM on insulin -HTN -morbid obesity -hyperthyroidism -hx of postoperative paroxysmal a fib -s/p remote L great hallux amputation Family History FH: diabetes mellitus FATHER Social History Smoking Status: Never Smoker Alcohol Use: none Drug Use: none Marital Status: single Housing Status: lives with family Occupation Status: unemployed Allergies Coded Allergies: No Known Allergies (Verified , 08/16/02) Medications Current Inpatient Medications Medications (Trade) Dose Ordered Sig/Jamilah Route Start Time Stop Time Status Last Admin Dose Admin Albuterol (Ventolin Hfa Inhaler) 2 puffs Q6H PRN INH 04/10/17 16:45 05/10/17 16:44 Mycophenolate Mofetil (Cellcept Cap) 500 mg Q12 PO 04/10/17 21:00 05/10/17 20:59 04/11/17 14:41 500 MG Tacrolimus (Prograf Cap) 3 mg BID PO 04/10/17 21:00 05/10/17 20:59 04/11/17 14:41 3 MG Glucose (Glucose 40% Gel) 15-30 GRAMS 15 GRAMS... UD PRN PO 04/10/17 16:45 05/10/17 16:44 Glucose (Glucose Chew Tab) 4-8 Tablets 4 Tabl... UD PRN PO 04/10/17 16:45 05/10/17 16:44 Dextrose (Dextrose 50% 50ML Syringe) 25-50ML OF 50% DW IV FOR... UD PRN IV 04/10/17 16:45 05/10/17 16:44 Glucagon (Glucagon Inj) 1 mg UD PRN SQ 04/10/17 16:45 05/10/17 16:44 Dopamine HCl/ Dextrose 250 ml @ 0 mls/hr Q0M IV 04/10/17 22:15 05/10/17 22:14 04/10/17 22:32 17.4 MLS/HR Ondansetron HCl (Zofran Inj) 4 mg Q6H PRN IV 04/11/17 01:30 05/11/17 01:29 04/11/17 05:19 4 MG Miscellaneous Information (Consult Glycemic Management Pharmacy) 1 ea UD PRN N/A 04/11/17 08:15 05/11/17 08:14 Ceftriaxone Sodium 2000 mg/ Dextrose 70 ml @ 140 mls/hr Q24H IV 04/11/17 12:00 04/21/17 11:59 04/11/17 11:09 140 MLS/HR Lactated Ringer's 1,000 ml @ 100 mls/hr Q10H IV 04/11/17 11:00 05/11/17 10:59 04/11/17 11:10 100 MLS/HR Insulin Human Regular 250 units/ Sodium Chloride 252.5 ml @ 0 mls/hr DAILY@1130 IV 04/11/17 11:30 05/11/17 11:29 04/11/17 12:08 5.9 MLS/HR Insulin Aspart (novoLOG ASPART) SLIDING SCALE [facility] SC 04/11/17 12:00 05/11/17 11:59 Insulin Glargine (Lantus Solostar Pen) 20 units BID SC 04/11/17 21:00 05/11/17 20:59 Acetaminophen (Tylenol Tab) 650 mg Q4H PRN PO 04/11/17 12:00 05/11/17 11:59 Home Meds and Scripts Medications Dose Route/Sig Max Daily Dose Days Date Category Dose Instructions Tylenol (Acetaminophen) 325 Mg Tab 650 Mg PO Q6H PRN 04/10/17 Reported Ventolin Hfa (Albuterol) 200 Puffs/50161 Mcg Aers 2 Puffs INH Q6H PRN 04/10/17 Reported Lantus (Insulin Glargine) 100 Unit/Ml Inj 45 Units SC HS 04/10/17 Reported Vitamin D 88791 Unit (Ergocalciferol) 50,000 Unit Cap 50,000 Unit PO MONTHLY 04/10/17 Reported Lopressor (Metoprolol Tartrate) 25 Mg Tab 25 Mg PO Q12 04/10/17 Reported Norvasc (Amlodipine Besylate) 5 Mg Tab 5 Mg PO QAM 04/10/17 Reported Cellcept (Mycophenolate Mofetil) 250 Mg Cap 500 Mg PO Q12 04/10/17 Reported Prograf (Tacrolimus) 1 Mg Cap 3 Mg PO BID 04/10/17 Reported Prilosec (Omeprazole) 20 Mg Capcr 20 Mg PO QAM 04/10/17 Reported Humalog (Insulin Lispro (Human)) 100 Unit/Ml Inj 4 Units SQ TIDM 04/10/17 Reported PLUS 1 UNITS FOR EVERY 50 ABOVE Review of Systems Constitutional: + see HPI, + fever, + weakness, + fatigue Eyes: No worsening of vision, No diplopia ENT: No hearing loss, No sore throat Respiratory: + see HPI, + cough, + sputum, + dyspnea on exertion, No dyspnea at rest Cardiac: No chest pain, No edema, No palpitations Abdomen: No pain, No nausea, No vomiting, No diarrhea, No constipation, No dark urine Musculoskeletal: + see HPI (currently BL knee pain only where he fell) Male : + problem reported (no change in chronic voiding habits past month or since admission) Neuro: + weakness, No memory loss Psych: No depression symptoms, No anxiety Heme: No abnormal bleeding/bruising Endo: + fatigue Skin: No rash, No new/changing skin lesions Physical Exam Date Time Temp Pulse Resp B/P (MAP) Pulse Ox O2 Delivery O2 Flow Rate FiO2 04/11/17 16:12 99 Nasal Cannula 5.0 04/11/17 15:31 37.0 45 21 130/54 (79) Nasal Cannula 5.0 04/11/17 15:30 47 25 99 04/11/17 15:01 47 16 112/58 (76) 04/11/17 15:00 48 21 97 04/11/17 14:31 50 21 113/67 (82) 97 04/11/17 14:30 48 26 98 04/11/17 14:02 43 27 113/49 (70) 98 04/11/17 14:00 45 27 98 Oxymask 8.0 04/11/17 13:31 48 26 117/68 (84) 04/11/17 13:30 51 26 97 04/11/17 13:17 61 28 134/66 (88) 97 04/11/17 13:02 79 26 131/64 (86) 96 04/11/17 13:00 59 27 97 04/11/17 12:46 49 24 132/60 (84) 04/11/17 12:32 47 20 132/52 (78) 95 04/11/17 12:30 47 25 96 Oxymask 8.0 04/11/17 12:16 51 23 117/53 (74) 04/11/17 12:02 47 24 122/59 (80) 95 04/11/17 12:00 45 27 94 04/11/17 11:33 37.2 41 22 114/63 (80) 97 Non-Rebreather 15.0 04/11/17 11:30 97 Nasal Cannula 5.0 04/11/17 11:30 41 17 96 04/11/17 11:17 42 15 128/58 (81) 95 04/11/17 11:15 42 16 94 04/11/17 11:05 45 25 133/68 (89) 90 04/11/17 10:45 60 16 102/75 (84) 96 Non-Rebreather 15 04/11/17 10:30 40 16 98/78 (85) 96 Nasal Cannula 4 04/11/17 09:32 44 16 169/56 (93) 98 Nasal Cannula 5.0 04/11/17 09:30 43 15 96 04/11/17 09:02 48 16 138/70 (92) 95 04/11/17 09:00 46 23 95 04/11/17 08:37 40 13 150/49 (82) 96 Nasal Cannula 5.0 04/11/17 08:30 42 15 97 04/11/17 08:01 45 23 141/74 (96) 92 04/11/17 08:00 96 Nasal Cannula 5.0 04/11/17 08:00 47 23 93 04/11/17 07:32 37.1 34 22 132/57 (82) 91 Nasal Cannula 5.0 04/11/17 07:30 43 24 92 04/11/17 07:01 45 20 123/48 (73) 94 04/11/17 07:00 44 17 94 04/11/17 06:01 52 21 155/52 (86) 93 04/11/17 05:44 36.7 65 19 137/60 93 Nasal Cannula 6.0 65 04/11/17 05:31 45 19 140/53 (82) 89 04/11/17 05:01 46 13 136/57 (83) 97 04/11/17 04:31 47 25 156/59 (91) 91 04/11/17 04:01 36.5 59 26 147/57 (87) 92 04/11/17 04:00 93 Nasal Cannula 6.0 04/11/17 03:59 58 20 137/60 (85) 93 04/11/17 03:31 65 19 137/60 (85) 95 04/11/17 03:01 68 26 166/57 (93) 92 04/11/17 02:46 67 24 157/63 (94) 91 04/11/17 02:31 73 17 166/64 (98) 91 04/11/17 02:16 69 22 162/60 (94) 91 04/11/17 02:01 69 27 143/63 (89) 91 04/11/17 01:46 65 27 152/62 (92) 90 04/11/17 01:31 67 18 157/62 (93) 90 04/11/17 01:16 67 26 158/68 (98) 90 04/11/17 01:01 75 17 148/71 (96) 92 04/11/17 00:47 81 10 169/68 (101) 91 04/11/17 00:32 49 18 167/64 (98) 93 04/11/17 00:17 62 15 148/72 (97) 93 04/11/17 00:13 44 13 137/52 (80) 95 04/11/17 00:01 95 CPAP 6.0 04/11/17 00:01 36.7 74 18 160/77 (104) 98 04/10/17 23:46 64 23 168/66 (100) 91 04/10/17 23:33 63 22 163/55 (91) 91 04/10/17 23:31 65 24 151/71 (97) 91 04/10/17 23:16 64 18 155/75 (101) 88 04/10/17 23:14 65 92 04/10/17 23:01 68 12 178/71 (106) 94 04/10/17 22:51 80 12 213/77 (122) 96 Room Air 04/10/17 22:46 81 12 204/81 (122) 98 Room Air 04/10/17 22:31 75 13 183/80 (114) 99 Room Air 04/10/17 22:16 72 12 163/93 (116) 94 Room Air 04/10/17 22:01 76 19 176/77 (110) 100 Room Air 04/10/17 21:46 72 13 175/80 (111) 93 Room Air 04/10/17 21:31 67 12 159/100 (119) 100 Room Air 04/10/17 21:22 36.8 58 17 137/79 (98) 99 Room Air 04/10/17 21:19 98 Room Air 04/10/17 21:10 105/78 (87) 04/10/17 20:55 33 106/71 (83) 04/10/17 19:28 36.9 69 22 119/61 (80) 98 Room Air 24-Hour Column 04/12/17 08:00 Intake Total 810 ml Output Total 125 ml Balance 685 ml General Appearance: WD/WN, + obese, + pertinent finding (nad, good historian, looks tired and ill, on oxymask, weak frequent dry cough) Eyes: EOMI ENT: hearing grossly normal Neck: supple Respiratory/Chest: no respiratory distress, + decreased breath sounds, + crackles (a few R sided crackles fine) Cardiovascular: no edema, no murmur, + bradycardia (regularly spaced bts in 40s ) Abdomen: normal bowel sounds, soft, + guarding, + tenderness (BLQ rosa RLQ over allograft), + pertinent finding (mancilla w/ darker yellow urine) Extremities: normal range of motion, no pedal edema, + pertinent finding (LUE AVF + t/b; remote L toe amputation) Neurologic/Psych: alert, oriented x 3, + pertinent finding (tired/lethargic) Skin: normal color, no jaundice, warm/dry, no rash Diagnostics Last 24 Hours Test 04/10/17 20:07 04/10/17 20:25 04/10/17 21:03 04/10/17 21:10 Bedside Glucose 172 mg/dl 186 mg/dl Troponin I 0.093 ng/ml Prothrombin Time 10.7 SECONDS Prothromb Time International Ratio 1.0 Test 04/10/17 22:26 04/11/17 04:38 04/11/17 05:25 04/11/17 08:43 Bedside Glucose 150 mg/dl 244 mg/dl White Blood Count 16.55 K/uL Red Blood Count 5.21 M/uL Hemoglobin 14.2 g/dL Hematocrit 42.1 % Mean Corpuscular Volume 80.8 fL Mean Corpuscular Hemoglobin 27.3 pg Mean Corpuscular Hemoglobin Concent 33.7 g/dl RDW Standard Deviation 44.1 fL RDW Coefficient of Variation 15.0 % Platelet Count 267 K/uL Mean Platelet Volume 9.9 fL Sodium Level 137 mmol/L Potassium Level 5.0 mmol/L Chloride Level 108 mmol/L Carbon Dioxide Level 18 mmol/L Anion Gap 11.0 mmol/L Blood Urea Nitrogen 17 mg/dl Creatinine 1.70 mg/dl Est Creatinine Clear Calc Drug Dose 84.8 ml/min Estimated GFR () 53.3 Estimated GFR (Non- 46.0 BUN/Creatinine Ratio 9.7 Random Glucose 312 mg/dl Calcium Level 9.7 mg/dl Magnesium Level 1.7 mg/dl Troponin I 0.079 ng/ml Beta-Hydroxybutyric Acid 16.51 mg/dL Lyme Disease IgG Antibody POS Lyme Disease IgM Antibody POS Test 04/11/17 11:19 04/11/17 13:13 04/11/17 15:42 04/11/17 17:02 Bedside Glucose 344 mg/dl 351 mg/dl 263 mg/dl 245 mg/dl Diagnostic Radiology: CXR > cardiomegaly no acute cp process Head CT no acute i-c process Carotid u/s > no significant stenosis either side clinically EKG: LAFB; prlonged QT; prolonged sinus pauses Assessment & Plan 51 y/o M w/ renal transplant baseline creatinine 1.2-1.4 admitted yesterday after syncope at home in the setting of a month of flu like sx, exertional dyspnea, cough and several days of fevers a few weeks ago. Noted since arrival to have bradycardia w/ prolonged pauses concerning for sinus node dysfunction and s/p temporary pacer; he is being observed for a day or more before permanent pacer placement. He remains on a dopamine gtt and was getting LR at 100 mL hourly when I saw him. Also with BLQ abdominal pain and guarding on my exam and about 24 hrs of periodic N/V. He has + lyme titers and got first ceftriaxone about 1130 this am. Also hypoxic w/ borderline hypotension and needing 5L 02 to maintain sats, needing dopamine to maintain bp for now w/ IVF. He has acute on chronic renal failure and this is likely to worsen given his arrhythmias, hypotension -repeat panel of chemistries ordered as well as lactic acid, ck, ESR -stat blood cultures and repeat uacm w/ urine cx ordered >> hopefully this is not too far out from first abtx dose -needs abdominal imaging > defer to primary best modality to evaluate lower abdomen/ source of emesis -changed LR (high K content relatively) to NS for now at 50 mL hourly -recommend transfer to [facility] [place] higher level of transplant care where tacro levels and other labs can be followed in real time in the setting of critical illness now with multiorgan involvement > cardiac rhythm issues, hypoxia, hypotension, worsening renal insufficiency -stat labs return w/ creatinine 2.4, lactic acid 2.6 -cultures pending; discussed with Dr Meek and recommended transfer to [facility] for higher level of care Appreciate consult; care coordinated with Dr Meek.
[2017-04-11 19:44] LABS: BUN/CREATININE RATIO 10.3 (10-20); CALCIUM 9.5 mg/dl (8.5-10.1); CREATININE 2.4 mg/dl (0.60-1.40); PHOSPHORUS 2.9 mg/dl (2.5-4.9); POTASSIUM 5.2 mmol/L (3.5-5.1)
[2017-04-11 20:16] LABS: URINE APPEARANCE CLOUDY (CLEAR); URINE COLOR ORANGE; URINE EPITHELIAL CELL AUTO >30 /lpf (0-5); URINE NITRITE POS (NEG); URINE SPECIFIC GRAVITY 1.033 (1.000-1.030); UROBILINOGEN NEG (NEG); ZZURINE CULT IF INDIC CATH YES
[2017-04-11 20:22] LABS: MANUAL MICROSCOPIC REQUIRED? NO; REVIEW REQ? YES
[2017-04-11 20:24] LABS: URINE BILIRUBIN NEG (NEG)
[2017-04-11 20:46] LABS: URINE PATH CASTS 0-3 GRANULAR CASTS /lpf (0)
[2017-04-11] MEDS ORDERED: INSULIN GLARGINE SOLOSTAR 100 UNITS/ML 3 ML PEN SC SCH (21:00)
--- NOTE | 2017-04-11 22:17 | Discharge Instructions ---
Discharge Instructions Date of Service Apr 11, 2017. Admission Reason for Admission: Elevated Troponin, Syncope Discharge Discharge Diagnosis / Problem: symptomatic bradycardia, worsening AI, s/p renal transplant Discharge Goals Goal(s): Therapeutic intervention Activity Recommendations Activity Limitations: per Instructions/Follow-up section . Instructions / Follow-Up Instructions / Follow-Up You are being transferred to [facility] in [place], [place]. They will likely make medication changes prior to you leaving there so please go off of the new list you receive when you leave that facility. We recommend you have a follow-up appointment with your primary care physician within one week of discharge from the hospital. It was a pleasure taking care of you! Call if you have any questions or problems. You can reach a [facility] hospitalist on duty at [facility] 24 hours a day by calling [phone]. Take care of yourself. Bryanna Sierra DO [facility] Hospitalist Current Hospital Diet Patient's current hospital diet: Diabetes Type 2 Diet Discharge Diet Recommended Diet: Diabetes Type 2 Diet Procedures Procedures Performed: 04/11-Transvenous pacemaker placement Pending Studies Studies pending at discharge: yes List of pending studies: Lyme labs, Blood cultures, Urine cultures Laboratory Results 04/11/17 05:25 04/11/17 18:59 Test 04/10/17 14:35 04/10/17 21:03 04/11/17 05:25 04/11/17 08:43 Immature Granulocyte % (Auto) 0.1 % White Blood Count 7.08 K/uL (4.8-10.8) Red Blood Count 5.32 M/uL (4.7-6.1) 5.21 M/uL (4.7-6.1) Hemoglobin 14.1 g/dL (14.0-18.0) Hematocrit 42.6 % (42-52) Mean Corpuscular Volume 80.1 fL (80-100) 80.8 fL (80-100) Mean Corpuscular Hemoglobin 26.5 pg (25-34) 27.3 pg (25-34) Mean Corpuscular Hemoglobin Concent 33.1 g/dl (32-36) 33.7 g/dl (32-36) Platelet Count 190 K/uL (130-400) Mean Platelet Volume 9.5 fL (7.4-10.4) 9.9 fL (7.4-10.4) Neutrophils (%) (Auto) 73.2 % Lymphocytes (%) (Auto) 16.8 % Monocytes (%) (Auto) 7.5 % Eosinophils (%) (Auto) 2.0 % Basophils (%) (Auto) 0.4 % Neutrophils # (Auto) 5.18 K/uL (1.4-6.5) Lymphocytes # (Auto) 1.19 K/uL (1.2-3.4) Monocytes # (Auto) 0.53 K/uL (0.11-0.59) Eosinophils # (Auto) 0.14 K/uL (0-0.5) Basophils # (Auto) 0.03 K/uL (0-0.2) Immature Granulocyte # (Auto) 0.01 K/uL (0.00-0.02) Total Bilirubin 0.8 mg/dl (0.2-1) Aspartate Amino Transf (AST/SGOT) 11 U/L (15-37) Alanine Aminotransferase (ALT/SGPT) 18 U/L (12-78) Alkaline Phosphatase 89 U/L (45-117) Total Creatine Kinase 68 U/L (39-308) Creatine Kinase MB 1.6 ng/ml (0.5-3.6) Creatine Kinase MB Ratio 2.4 (0-3.0) Total Protein 7.7 gm/dl (6.4-8.2) Albumin 3.6 gm/dl (3.4-5.0) Globulin 4.1 gm/dl (2.5-4.0) Albumin/Globulin Ratio 0.9 (0.9-2) Thyroid Stimulating Hormone (TSH) 0.448 uIu/ml (0.300-4.500) Prothrombin Time 10.7 SECONDS (9.0-12.0) Prothromb Time International Ratio 1.0 (0.9-1.1) RDW Standard Deviation 44.1 fL (36.4-46.3) RDW Coefficient of Variation 15.0 % (11.5-14.5) Troponin I 0.079 ng/ml (0-0.045) Beta-Hydroxybutyric Acid 16.51 mg/dL (0.2-2.81) Lyme Disease IgG Antibody POS (NEG) Test 04/11/17 18:59 04/11/17 19:48 10/9/17 19:50 Erythrocyte Sedimentation Rate 28 mm/hr (0-14) Anion Gap 6.0 mmol/L (3-11) Est Creatinine Clear Calc Drug Dose 58.4 ml/min Estimated GFR () 35.1 Estimated GFR (Non- 30.3 BUN/Creatinine Ratio 10.3 (10-20) Lactic Acid Level 2.6 mmol/L (0.4-2.0) Calcium Level 9.5 mg/dl (8.5-10.1) Ionized Calcium 1.23 mmol/l (1.12-1.32) Phosphorus Level 2.9 mg/dl (2.5-4.9) Magnesium Level 2.0 mg/dl (1.8-2.4) Bedside Glucose 173 mg/dl (70-99) Urine Color ORANGE Urine Appearance CLOUDY (CLEAR) Urine pH 5.0 (4.5-7.5) Urine Specific [place] 1.033 (1.000-1.030) Urine Protein 1+ (NEG) Urine Glucose (UA) TRACE (NEG) Urine Ketones TRACE (NEG) Urine Occult Blood 3+ (NEG) Urine Nitrite POS (NEG) Urine Bilirubin NEG (NEG) Urine Urobilinogen NEG (NEG) Urine Leukocyte Esterase SMALL (NEG) Urine WBC (Auto) 10-30 /hpf (0-5) Urine RBC (Auto) >30 /hpf (0-4) Urine Hyaline Casts (Auto) 1-5 /lpf (0-5) Urine Epithelial Cells (Auto) >30 /lpf (0-5) Urine Bacteria (Auto) NEG (NEG) Urine Renal Epithelial Cells /lpf (0-5) Urine Pathogenic Casts 0-3 GRANULAR CASTS /lpf (0) Date/Time Source Procedure Growth Status 04/11/17 19:08 Blood Blood Culture Pending Received 04/10/17 21:22 Nasal MRSA DNA Surveillance Screen - Final Specimen Negative for MRSA by DNA Probe Complete 04/11/17 19:50 Urine,Catheterized Urine Culture Pending Received Medical Emergencies . Who to Call and When: Medical Emergencies: If at any time you feel your situation is an emergency, please call 911 immediately. . Non-Emergent Contact Non-Emergency issues call your: Primary Care Provider . . "Provider Documentation" section prepared by Bryanna Sierra. . VTE Core Measure Inpt VTE Proph given/why not?: Contraindicated (recent procedure)
[2017-04-12] MEDS ORDERED: CEFAZOLIN SOD 1000MG/55 ML D5W IV SCH (06:00)
--- NOTE | 2017-04-12 21:58 | Discharge Summary ---
Discharge Summary Date of Service Apr 11, 2017. Discharge Summary Admission Date: Apr 10, 2017 at 16:34 Discharge Date: Apr 11, 2017 Discharge Disposition: Acute care facility Principal Diagnosis: Syncope 2/2 symptomatic bradycardia Lyme Disease ERIN h/o renal transplant DMII ERIN Obesity Procedures: Transvenous pacemaker placement Vaccinations: None. Consultations: Cards, ICU, Nephrology Pending Studies/Follow-Up: see instructions below. Medication Reconciliation Discontinued Medications: Acetaminophen (Tylenol) 325 Mg Tab 650 MG PO Q6H PRN for Pain Albuterol Hfa (Ventolin Hfa) 200 Puffs/43395 Mcg Aers 2 PUFFS INH Q6H PRN for Shortness of Breath Amlodipine (Norvasc) 5 Mg Tab 5 MG PO QAM Ergocalciferol (Vitamin D 05565 Unit) 50,000 Unit Cap 73602 UNIT PO MONTHLY Insulin Glargine (Lantus) 100 Unit/Ml Inj 45 UNITS SC HS Insulin Lispro (Human) (Humalog) 100 Unit/Ml Inj 4 UNITS SQ TIDM PLUS 1 UNITS FOR EVERY 50 ABOVE Metoprolol Tartrate (Lopressor) 25 Mg Tab 25 MG PO Q12 Mycophenolate Mofetil (Cellcept) 250 Mg Cap 500 MG PO Q12 Omeprazole (Prilosec) 20 Mg Capcr 20 MG PO QAM Tacrolimus (Prograf) 1 Mg Cap 3 MG PO BID, 3 Refills Admission Information HPI (per Admitting provider): 51 year old with PMH significant for transplanted kidney 2 years ago in [facility] syncope event on 04/10/17 at home fell on the floor after feeling lightheadedness and "head walker" of bloodflow/ warmth to head does not recall hitting the ground remembers waking up after being called by family member estimates that symptoms lasted briefly on this episode but has been feeling lightheaded symptoms for weeks denies symptoms when changing positions from sitting to standing, initially having lightheaded symptoms at rest, then more recently noted having lightheaded symptoms when already standing received IV fluids in ED history of diabetes on insulin, denies hypoglycemic numbers when he has checked blood sugars when having symptoms, denies hypoglycemic numbers immediately after hypoglycemic episode, estimates his blood sugar was 200, on ED presentation the glucose has been 193 on labs reports that he did not take his medicines prior to the episode, did not take insulin, or blood pressure medication denies seizure like symptoms denies history of stroke, CT head negative for stroke denies history of myocardial infarction initial troponin elevated 0.08 slightly elevated EKG with 1st degree AV block, WI interval 252 Review of systems: some head congestion and cough for 4 weeks Physical Exam (per Admitting): General Appearance: no apparent distress Head: normocephalic, atraumatic Eyes: normal inspection, EOMI Respiratory/Chest: chest non-tender, lungs clear (mildy less clear on right lung sapp), normal breath sounds, no respiratory distress, no accessory muscle use Cardiovascular: regular rate, rhythm, no edema, no JVD, normal peripheral pulses Abdomen/GI: normal bowel sounds, non tender, soft, no pulsatile mass Genitourinary - Male: normal male genitalia Back: normal inspection Extremities/Musculoskelatal: normal inspection, no calf tenderness, normal capillary refill, non-tender, + pertinent finding (history of toe amputation) Neurologic/Psych: no motor/sensory deficits, alert, normal mood/affect, oriented x 3 Skin: normal color, warm/dry Hospital Course 51 yo M presented with lightheadedness and recent episode of syncope prior to arrival. He was placed on telemetry overnight. He tried to go to the bathroom and became lightheaded and very unsteady. His rhythm revealed a sinus bradycaardia with HR in the 30s to 40s. He was mentating well and asymptomatic but there were significant pauses seen on EKG and he was dipping into the low 30s. Atropine 0.5mg was given with no effect. He was transferred to the ICU and placed on a dopamine drip at 3mcg/kg/min, however, his BP went over 200 because of pain/anxiety and the dopamine was temporarily stopped until this could be treated and the pressure came back down. He stayed on the drip and was seen to have one episode of torsades x 5-6 beats on the monitor. A temporary venous pacer was placed the following day, however, per Nephrology team, there were concerns that he is not at a facility with transplant services while his renal function was worsening. Later that night he was transferred to [facility] via helicopter. His mother was notified and all questions answered. At time of discharge he was well-appearing and was mentating well. His physical exam was unremarkable. Total time spent on discharge = 60 This includes examination of the patient, dis6-60charge planning, medication reconciliation, and communication with other providers. [place] [id number] Discharge Instructions Patient Name: DANIEL NELSON Admit Date: 04/10/1710/08/17 [facility] Rec: [id number] Att Phy: David Fraire M.D. Acct ID: [id number] Geri Phy: No Doctor, Assigned Date: 1965 Fam Phy: No Doctor, Assigned Age: 51 Location: [facility] Sex: M Room/Bed: [facility] CC: No Doctor, Assigned Bryanna Sierra DO Please take this sheet to every appointment for the next month Discharge Instructions Date of Service Apr 11, 2017. Admission Reason for Admission: Elevated Troponin, Syncope Discharge Discharge Diagnosis / Problem: symptomatic bradycardia, worsening AI, s/p renal transplant Discharge Goals Goal(s): Therapeutic intervention Activity Recommendations Activity Limitations: per Instructions/Follow-up section . Instructions / Follow-Up Instructions / Follow-Up You are being [place] [facility] [place], [place]. They will likely make medication changes prior to you leaving there so please go off of the new list you receive when you leave that facility. We recommend you have a follow-up appointment with your primary care physician within one week of discharge from the hospital. It was a pleasure taking care of you! Call if you have any questions or problems. You can reach a [facility] hospitalist on duty at 24 hours a day by calling [phone]. Take care of yourself. Bryanna Sierra DO [facility] Hospitalist Current Hospital Diet Patient's current hospital diet: Diabetes Type 2 Diet Discharge Diet Recommended Diet: Diabetes Type 2 Diet Procedures Procedures Performed: 04/11-Transvenous pacemaker placement Pending Studies Studies pending at discharge: yes List of pending studies: Lyme labs, Blood cultures, Urine cultures Laboratory Results 04/11/17 05:25 04/11/17 18:59 Test 04/10/17 14:35 04/10/17 21:03 04/11/17 05:25 04/11/17 08:43 Immature Granulocyte % (Auto) 0.1 % White Blood Count 7.08 K/uL (4.8-10.8) Red Blood Count 5.32 M/uL (4.7-6.1) 5.21 M/uL (4.7-6.1) Hemoglobin 14.1 g/dL (14.0-18.0) Hematocrit 42.6 % (42-52) Mean Corpuscular Volume 80.1 fL (80-100) 80.8 fL (80-100) Mean Corpuscular Hemoglobin 26.5 pg (25-34) 27.3 pg (25-34) Mean Corpuscular Hemoglobin Concent 33.1 g/dl (32-36) 33.7 g/dl (32-36) Platelet Count 190 K/uL (130-400) Mean Platelet Volume 9.5 fL (7.4-10.4) 9.9 fL (7.4-10.4) Neutrophils (%) (Auto) 73.2 % Lymphocytes (%) (Auto) 16.8 % Monocytes (%) (Auto) 7.5 % Eosinophils (%) (Auto) 2.0 % Basophils (%) (Auto) 0.4 % Neutrophils # (Auto) 5.18 K/uL (1.4-6.5) Lymphocytes # (Auto) 1.19 K/uL (1.2-3.4) Monocytes # (Auto) 0.53 K/uL (0.11-0.59) Eosinophils # (Auto) 0.14 K/uL (0-0.5) Basophils # (Auto) 0.03 K/uL (0-0.2) Immature Granulocyte # (Auto) 0.01 K/uL (0.00-0.02) Total Bilirubin 0.8 mg/dl (0.2-1) Aspartate Amino Transf (AST/SGOT) 11 U/L (15-37) Alanine Aminotransferase (ALT/SGPT) 18 U/L (12-78) Alkaline Phosphatase 89 U/L (45-117) Total Creatine Kinase 68 U/L (39-308) Creatine Kinase MB 1.6 ng/ml (0.5-3.6) Creatine Kinase MB Ratio 2.4 (0-3.0) Total Protein 7.7 gm/dl (6.4-8.2) Albumin 3.6 gm/dl (3.4-5.0) Globulin 4.1 gm/dl (2.5-4.0) Albumin/Globulin Ratio 0.9 (0.9-2) Thyroid Stimulating Hormone (TSH) 0.448 uIu/ml (0.300-4.500) Prothrombin Time 10.7 SECONDS (9.0-12.0) Prothromb Time International Ratio 1.0 (0.9-1.1) RDW Standard Deviation 44.1 fL (36.4-46.3) RDW Coefficient of Variation 15.0 % (11.5-14.5) Troponin I 0.079 ng/ml (0-0.045) Beta-Hydroxybutyric Acid 16.51 mg/dL (0.2-2.81) Lyme Disease IgG Antibody POS (NEG) Test 04/11/17 18:59 04/11/17 19:48 04/11/17 19:50 Erythrocyte Sedimentation Rate 28 mm/hr (0-14) Anion Gap 6.0 mmol/L (3-11) Est Creatinine Clear Calc Drug Dose 58.4 ml/min Estimated GFR () 35.1 Estimated GFR (Non- 30.3 BUN/Creatinine Ratio 10.3 (10-20) Lactic Acid Level 2.6 mmol/L (0.4-2.0) Calcium Level 9.5 mg/dl (8.5-10.1) Ionized Calcium 1.23 mmol/l (1.12-1.32) Phosphorus Level 2.9 mg/dl (2.5-4.9) Magnesium Level 2.0 mg/dl (1.8-2.4) Bedside Glucose 173 mg/dl (70-99) Urine Color ORANGE Urine Appearance CLOUDY (CLEAR) Urine pH 5.0 (4.5-7.5) Urine Specific [place] 1.033 (1.000-1.030) Urine Protein 1+ (NEG) Urine Glucose (UA) TRACE (NEG) Urine Ketones TRACE (NEG) Urine Occult Blood 3+ (NEG) Urine Nitrite POS (NEG) Urine Bilirubin NEG (NEG) Urine Urobilinogen NEG (NEG) Urine Leukocyte Esterase SMALL (NEG) Urine WBC (Auto) 10-30 /hpf (0-5) Urine RBC (Auto) >30 /hpf (0-4) Urine Hyaline Casts (Auto) 1-5 /lpf (0-5) Urine Epithelial Cells (Auto) >30 /lpf (0-5) Urine Bacteria (Auto) NEG (NEG) Urine Renal Epithelial Cells /lpf (0-5) Urine Pathogenic Casts 0-3 GRANULAR CASTS /lpf (0) Date/Time Source Procedure Growth Status 04/11/17 19:08 Blood Blood Culture Pending Received 04/10/17 21:22 Nasal MRSA DNA Surveillance Screen - Final Specimen Negative for MRSA by DNA Probe Complete 04/11/17 19:50 Urine,Catheterized Urine Culture Pending Received Medical Emergencies . Who to Call and When: Medical Emergencies: If at any time you feel your situation is an emergency, please call 911 immediately. . Non-Emergent Contact Non-Emergency issues call your: Primary Care Provider . . "Provider Documentation" section prepared by Bryanna Sierra. . VTE Core Measure Inpt VTE Proph given/why not?: Contraindicated (recent procedure) <Electronically signed by Bryanna Sierra DO> Signed: 04/11/17 0865 Signed: The status of this report is Signed * If report status is Draft, the document has not been finalized by the responsible provider.
[2017-04-14 07:28] LABS: 18KDIGG BAND REACTIVE (NONREACTIVE); 23KDIGG BAND REACTIVE (NONREACTIVE); 23KDIGM BAND REACTIVE (NONREACTIVE); 28KDIGG BAND REACTIVE (NONREACTIVE); 30KDIGG BAND REACTIVE (NONREACTIVE); 39KDIGG BAND REACTIVE (NONREACTIVE); 39KDIGM BAND REACTIVE (NONREACTIVE); 41KDIGG BAND REACTIVE (NONREACTIVE); 41KDIGM BAND REACTIVE (NONREACTIVE); 45KDIGG BAND REACTIVE (NONREACTIVE); 58KDIGG BAND REACTIVE (NONREACTIVE); 66KDIGG BAND REACTIVE (NONREACTIVE); 93KDIGG BAND NONREACTIVE (NONREACTIVE)
== END 2017-04-11 22:40 | disposition short-term general hospital (02) | DRG 308 ==
LOC: EDBD 13:23 → C.EDC 13:25 → C.2T 16:34 → OBSVTOIN 16:34 → ENRESERV 16:44 → C.MSICU 21:16
PROVIDERS: ADMIT Hospitalist; ATTEND Hospitalist
PROC: 5A1213Z Performance of Cardiac Pacing, Intermittent (ICD-10-PCS; principal; 2017-04-11 10:01)
DX: I49.5 Sick sinus syndrome (principal); N18.6 End stage renal disease; Z68.41 Body mass index [BMI] 40.0-44.9, adult; Z94.0 Kidney transplant status; I12.0 Hypertensive chronic kidney disease with stage 5 chronic kidney disease or end stage renal disease; E11.22 Type 2 diabetes mellitus with diabetic chronic kidney disease; G47.33 Obstructive sleep apnea (adult) (pediatric); E66.9 Obesity, unspecified; Z79.4 Long term (current) use of insulin; Z79.899 Other long term (current) drug therapy

== ENCOUNTER 2021-08-08 02:07 | Inpatient (IN) ==
[2021-08-08] MEDS ORDERED: LACTATED RINGER'S 1,000 ML IV ONE (02:33)
[2021-08-08] MEDS ORDERED: GLUCAGON FOR INJ 1 MG VIAL SQ PRN (02:33)
--- NOTE | 2021-08-08 02:39 | Emergency Department Note ---
History of Present Illness General Chief complaint: Hyperglycemia Stated complaint: HYPERGLYCEMIA Time Seen by Provider: 08/08/21 02:19 Source: patient Mode of arrival: EMS Limitations: altered mental status History of Present Illness Provider complaint: Hyperglycemia Onset (ago): day(s) 2 Maximum Pain Intensity: 10 This is a 56-year-old male brought in by EMS with mother at bedside due to concern for hyperglycemia. Mother states she went to check on the patient prior to going to bed and he did not seem to be acting himself. She states he checked his blood sugar which was mildly elevated and then checked his blood sugar which was high at 400. She states she does not know where his blood sugars normally run however when asked if they have been running high the patient nods yes. Patient otherwise not able to provide much history, is occasionally moaning and complains of pain in the right foot. Mother states he was here recently and found to have an elevated INR. Patient shakes his head yes when asked this. Patient does have a kidney transplant. Patient denies any trauma or injury. Denies fevers or chills. Patient otherwise does not provide additional history or recent events. Pt seen during a time of high acuity and national emergency pandemic while wearing PPE. Home Medications Medication Instructions Recorded Confirmed Type amlodipine 10 mg tablet 10 mg PO QAM 07/29/20 08/08/21 History cholecalciferol (vitamin D3) 25 25 mcg PO QAM 07/29/20 08/08/21 History mcg (1,000 unit) tablet (Vitamin D3) insulin glargine 100 unit/mL (3 50 unit SUBCUT HS 07/29/20 08/08/21 History mL) subcutaneous pen (Lantus Solostar U-100 Insulin) insulin lispro 100 unit/mL 1 sliding scale dose SUBCUT 07/29/20 08/08/21 History subcutaneous solution (Humalog USEASDIRECTD U-100 Insulin) metoprolol tartrate 25 mg tablet 25 mg PO BID 07/29/20 08/08/21 History omeprazole 20 mg tablet,delayed 20 mg PO QAM 07/29/20 08/08/21 History release rosuvastatin 20 mg tablet 20 mg PO QAM 07/29/20 08/08/21 History tacrolimus 1 mg capsule, 2 mg PO QAM 07/29/20 08/08/21 History immediate-release warfarin 2.5 mg tablet 2.5 - 5 mg PO .HOLD 07/29/20 08/08/21 History acetaminophen 325 mg tablet 650 mg PO Q6H PRN 08/05/21 08/08/21 History (Tylenol) baclofen 20 mg tablet 20 mg PO AMPM 08/05/21 08/08/21 History mycophenolate mofetil 250 mg 500 mg PO BID 08/05/21 08/08/21 History capsule oxycodone 5 mg tablet 5 mg PO Q8H PRN #11 tab 08/05/21 08/08/21 Rx tacrolimus 1 mg capsule, 3 mg PO QPM 08/05/21 08/08/21 History immediate-release Allergies Allergy/AdvReac Type Severity Reaction Status Date / Time No Known Allergies Allergy Verified 08/08/21 02:50 Past Med/Surg History Medical History Arthritis Asthma DOES NOT HAVE AN ACTIVE INHALER CURRENLTY AV fistula LEFT ARM Diabetes mellitus, type 2 History of anemia History of renal dialysis PRIOR TO TRANSPLANT Hypertension Pacemaker ? REASON FOR PACEMAKER OR WARFARIN (FOLLOWS WITH [facility]) WILL BRING CARD DAY OF COLONOSCOPY Sleep apnea CPAP Thyroid disease ? OVERACTIVE *DOES NOT TAKE MEDS FOR CURRENLTY Surgical History History of cataract surgery RT/LEFT History of colonoscopy History of tooth extraction Hx of kidney transplant 2015 AT [facility] [address] Family History Mother Family history of diabetes mellitus Father Family history of diabetes mellitus Social History Smoking Status: Never smoker Second Hand Exposure: No; Do You Dip or Chew Tobacco: No; Tobacco Cessation Education Requested by Patient: No Hx Alcohol Use: No Hx Substance Use: No Preferred Language: Pashto Communication Ability: Effective Doctorate Of Chiropractic Required: No Beliefs That Will Affect Care: None Current Living Situation: Parent Current Living Situation Comment: lives with his mother Other Information That Helps Us Care for You: No Feels Safe at Home: Yes Safety Concerns: Feels Safe At This Time Assistive Devices: Glasses and Oxygen - Continuous Assistive Devices Comment: cpap at Review of Systems A total of 10 systems reviewed and were otherwise negative All systems reviewed & are unremarkable except as noted in HPI & below Physical Exam Vital Signs Vital Signs - 24 hr 08/08/21 05:40 08/08/21 05:50 08/08/21 06:30 Pulse Rate 89 94 H 86 Pulse Rate from SpO2 Sensor 89 Respiratory Rate 18 23 15 Blood Pressure 173/63 H 173/63 H 162/66 H Blood Pressure Mean 99 99 98 Pulse Oximetry 100 100 96 Oxygen Delivery Method Nasal Cannula Nasal Cannula Nasal Cannula Oxygen Flow Rate 2 2 2 GENERAL: alert, unwell appearing, well nourished, mild distress, non-toxic EYE EXAM: normal conjunctiva, PERRL and EOM's grossly intact OROPHARYNX: no exudate, no erythema, lips, buccal mucosa, and tongue normal and mucous membranes are dry, slight fruity odor to breath NECK: supple, no nuchal rigidity, no adenopathy, non-tender LUNGS: Clear to auscultation. Normal chest wall mechanics, no w/r/r, tachypnea noted, no respiratory distress or retractions HEART: no murmurs, S1 normal and S2 normal ABDOMEN: abdomen soft, non-tender, normo-active bowel sounds, no masses, no rebound or guarding. BACK: Back is symmetrical on inspection and there is no deformity, no midline tenderness, no CVA tenderness. SKIN: no rashes and no bruising UPPER EXTREMITIES: upper extremities are grossly normal. FROM, nml pulses b/l. LOWER EXTREMITIES: Right lower extremity pitting edema with contusion at the ank le and foot, no bony tenderness with palpation, global tenderness with any palpation of the foot and ankle and the right thigh, compartments soft in the lower extremity, sensation intact with some dullness b/l which patient states is chronic and likely from neuropathy, no deformity, small area of erythema noted along the dorsal aspect distally near the third metatarsal, FROM, nml pulses b/l. NEURO EXAM: Somnolent but arousable, uncooperative regarding additional history and details, cranial nerves II-XII grossly intact, normal speech, no gross weakness of arms, no gross weakness of legs. Gross sensation intact. Course Administered Medications Amlodipine Besylate ([facility] Besylate 5 Mg Tab) [facility] Stop: 09/07/21 09:44 Last Admin: 08/08/21 10:18 Dose: 10 mg Documented by: [id number] Baclofen (Baclofen 20 Mg Tab) 20 mg PO BID [facility] Stop: 09/07/21 09:44 Last Admin: 08/08/21 21:01 Dose: 20 mg Documented by: [id number] Admin: 08/08/21 10:17 Dose: 20 mg Documented by: [id number] Insulin Human Regular 250 (units/ Sodium Chloride) 250 mls @ 4.2 mls/hr IV .Q2 4H [facility]; Protocol Stop: 09/07/21 09:44 Last Titration: 08/08/21 22:18 Dose: 4.2 units/hr, 4.2 mls/hr Documented by: [id number] Cosigned by: [id number] Titration: 08/08/21 18:20 Dose: 5.3 units/hr, 5.3 mls/hr Documented by: [id number] Cosigned by: [id number] Titration: 08/08/21 16:00 Dose: 4.4 units/hr, 4.4 mls/hr Documented by: [id number] Cosigned by: [id number] Titration: 08/08/21 13:12 Dose: 3.7 units/hr, 3.7 mls/hr Documented by: [id number] Cosigned by: [id number] Titration: 08/08/21 11:26 Dose: 3.1 units/hr, 3.1 mls/hr Documented by: [id number] Cosigned by: [id number] Admin: 08/08/21 10:19 Dose: 3.9 units/hr, 3.9 mls/hr Documented by: [id number] Cosigned by: [id number] Piperacillin Sod/Tazobactam (Sod 4.5 gm/ Dextrose) 120 mls @ 30 mls/hr IV Q8H [facility]; Protocol Stop: 08/10/21 15:59 Last Admin: 08/09/21 01:03 Dose: 30 mls/hr Documented by: [id number] Admin: 08/08/21 18:16 Dose: Not Given Documented by: [id number] Insulin Aspart (Insulin Aspart Per Unit) 0 units SC ACHS [facility] Stop: 09/07/21 09:44 Last Admin: 08/08/21 21:06 Dose: Not Given Documented by: [id number] Cosigned by: [id number] Admin: 08/08/21 17:08 Dose: Not Given Documented by: [id number] Admin: 08/08/21 12:13 Dose: Not Given Documented by: [id number] Admin: 08/08/21 11:28 Dose: Not Given Documented by: [id number] Metoprolol Tartrate (Metoprolol Tartrate 25 Mg Tab) 25 mg PO BID [facility] Stop: 09/07/21 09:44 Last Admin: 08/08/21 21:01 Dose: 25 mg Documented by: [id number] Admin: 08/08/21 10:17 Dose: 25 mg Documented by: [id number] Miscellaneous (Iv Insulin--Pending Order) 1 ea N/A Q4 [facility] Stop: 09/07/21 15:59 Last Admin: 08/09/21 03:34 Dose: Not Given Documented by: [id number] Admin: 08/08/21 23:21 Dose: Not Given Documented by: [id number] Admin: 08/08/21 23:21 Dose: Not Given Documented by: [id number] Admin: 08/08/21 19:03 Dose: Not Given Documented by: [id number] Mycophenolate Mofetil (Mycophenolate Mofetil 250 Mg Cap) 500 mg PO BID [facility] Stop: 09/07/21 09:44 Last Admin: 08/08/21 21:01 Dose: 500 mg Documented by: [id number] Admin: 08/08/21 10:18 Dose: 500 mg Documented by: [id number] Oxycodone HCl (Oxycodone Hcl Ir 5 Mg Tab (Immediate Release)) 5 mg PO Q4 PRN PRN Reason: pain Stop: 08/22/21 09:15 Last Admin: 08/09/21 04:14 Dose: 5 mg Documented by: [id number] Admin: 08/08/21 17:39 Dose: 5 mg Documented by: [id number] Pantoprazole Sodium (Pantoprazole 40 Mg Tab) 40 mg PO [facility]; Protocol Stop: 09/07/21 09:44 Last Admin: 08/08/21 10:17 Dose: 40 mg Documented by: [id number] Rosuvastatin Calcium (Rosuvastatin Calcium 20 Mg Tab) [facility] Stop: 09/07/21 09:44 Last Admin: 08/08/21 10:17 Dose: 20 mg Documented by: [id number] Tacrolimus (Tacrolimus 1 Mg Cap) [facility] Stop: 09/07/21 09:44 Last Admin: 08/08/21 10:17 Dose: 2 mg Documented by: [id number] Tacrolimus (Tacrolimus 1 Mg Cap) 3 mg PO QPM [facility] Stop: 09/07/21 20:59 Last Admin: 08/08/21 21:01 Dose: 3 mg Documented by: [id number] Vitamin D (Cholecalciferol 1,000 Units 25 Mcg Tab) 1,000 units PO QAM [facility] Stop: 09/07/21 09:44 Last Admin: 08/08/21 10:18 Dose: 1,000 units Documented by: [id number] Discontinued Medications Fentanyl Citrate (Fentanyl Citrate 100 Mcg/2 Ml Vial) 50 mcg IV NOW STA Stop: 08/08/21 05:36 Last Admin: 08/08/21 07:11 Dose: 50 mcg Documented by: [id number] Lactated Ringer's (Lr) 1,000 mls @ 999 mls/hr IV .Q1H1M ONE Stop: 08/08/21 03:33 Last Infusion: 08/08/21 03:47 Dose: 0 mls/hr Documented by: [id number] Admin: 08/08/21 02:46 Dose: 999 mls/hr Documented by: [id number] Phytonadione 5 mg/ Dextrose 50.5 mls @ 101 mls/hr IV ONE ONE Stop: 08/08/21 04:01 Last Admin: 08/08/21 04:31 Dose: Not Given Documented by: [id number] Lactated Ringer's (Lr) 1,000 mls @ 200 mls/hr IV .Q5H [facility] Stop: 09/07/21 03:44 Last Admin: 08/08/21 10:35 Dose: Not Given Documented by: [id number] Infusion: 08/08/21 10:32 Dose: 0 mls/hr Documented by: [id number] Admin: 08/08/21 05:34 Dose: 200 mls/hr Documented by: [id number] Phytonadione 10 mg/ Dextrose 51 mls @ 102 mls/hr IV ONE ONE Stop: 08/08/21 04:03 Last Infusion: 08/08/21 05:04 Dose: 0 mls/hr Documented by: [id number] Admin: 08/08/21 04:34 Dose: 102 mls/hr Documented by: [id number] Magnesium Sulfate/Dextrose (Magnesium Sulfate / D5w) 1 gm in 100 mls @ 100 mls/hr IV NOW STA Stop: 08/08/21 05:43 Last Infusion: 08/08/21 05:51 Dose: 0 mls/hr Documented by: [id number] Admin: 08/08/21 04:51 Dose: 100 mls/hr Documented by: [id number] Acetaminophen (Ofirmev) 1,000 mg in 100 mls @ 400 mls/hr IV NOW STA Stop: 08/08/21 05:49 Last Infusion: 08/08/21 06:25 Dose: 0 mls/hr Documented by: [id number] Admin: 08/08/21 06:10 Dose: 400 mls/hr Documented by: [id number] Prothrombin Complex Concent ( (Human) 5,000 units/ Syringe) 200 mls @ 10 mls/min IV TODAY@0730 [facility]; Protocol Stop: 08/08/21 08:00 Last Admin: 08/08/21 07:38 Dose: 10 mls/min Documented by: [id number] Sodium Chloride (Nss 1000ml) 1,000 mls @ 200 mls/hr IV .Q5H [facility] Stop: 09/07/21 09:15 Last Infusion: 08/08/21 16:00 Dose: 0 mls/hr Documented by: [id number] Admin: 08/08/21 15:24 Dose: 200 mls/hr Documented by: [id number] Infusion: 08/08/21 15:24 Dose: 200 mls/hr Documented by: [id number] Admin: 08/08/21 10:18 Dose: 200 mls/hr Documented by: [id number] Piperacillin Sod/Tazobactam (Sod 3.375 gm/ Dextrose) 115 mls @ 28.75 mls/hr IV Q8H [facility]; Protocol Stop: 08/15/21 09:15 Last Admin: 08/08/21 12:12 Dose: Not Given Documented by: [id number] Piperacillin Sod/Tazobactam (Sod 4.5 gm/ Dextrose) 120 mls @ 200 mls/hr IV ONE ONE; Protocol Stop: 08/08/21 10:20 Last Infusion: 08/08/21 10:53 Dose: 0 mls/hr Documented by: [id number] Admin: 08/08/21 10:17 Dose: 200 mls/hr Documented by: [id number] Insulin Human Regular 4 units/ (Syringe) 4 mls @ 24 mls/min IV ONE ONE Stop: 08/08/21 09:46 Last Admin: 08/08/21 10:19 Dose: 24 mls/min Documented by: [id number] Cosigned by: [id number] Insulin Glargine (Insulin Glargine Solostar 100 Units/Ml 3 Ml Pen) 35 units SC ONE ONE Stop: 08/08/21 14:31 Last Admin: 08/08/21 15:24 Dose: 35 units Documented by: [id number] Cosigned by: [id number] Insulin Human Regular (Novolin-R Insulin Per Unit Charge) 6 units SC NOW STA Stop: 08/08/21 05:35 Last Admin: 08/08/21 06:05 Dose: 6 units Documented by: [id number] Cosigned by: [id number] Ioversol (Optiray 320 125ml) 120 ml IV ONCE ONE Stop: 08/08/21 04:19 Last Admin: 08/08/21 04:19 Dose: 120 ml Documented by: [id number] Miscellaneous (Stat Iv Infusion Titration Per Protocol) 1 ea N/A NOW STA Stop: 08/08/21 07:10 Last Admin: 08/08/21 10:31 Dose: 1 ea Documented by: [id number] Oxycodone HCl (Oxycodone Hcl Ir 5 Mg Tab (Immediate Release)) 5 mg PO Q8H PRN PRN Reason: pain Stop: 08/22/21 09:15 Last Admin: 08/08/21 13:08 Dose: 5 mg Documented by: [id number] Medical Decision Making Differential Diagnosis Differential diagnoses includes but is not limited to toxic, metabolic, infectious, traumatic, cardiac, neurologic, hematologic, psychiatric and inflammatory etiologies. Medical Records Attestation: I reviewed the patient's medical records. Home Medications Current Medication List: was personally reviewed by me Laboratory Data Attestation: I reviewed the patient's lab results. Result diagrams: 08/09/21 02:26 08/08/21 14:45 Lab Results 08/08/21 08/08/21 08/08/21 Range/Units 02:13 02:15 02:15 WBC 8.92 (4.8-10.8) K/uL RBC 3.07 L (4.7-6.1) M/uL Hgb 8.0 L (14.0-18.0) g/dL Hct 25.1 L (42-52) % MCV 81.8 (80-100) fL MCH 26.1 (25-34) pg MCHC 31.9 L (32-36) g/dL RDW Std Deviation 44.5 (36.4-46.3) fL RDW Coeff of Jaxson 15.3 H (11.5-14.5) % Plt Count 397 (130-400) K/uL MPV 9.4 (7.4-10.4) fL Immature Gran % (Auto) 0.3 % Neut % (Auto) 74.5 % Lymph % (Auto) 14.1 % [place] % (Auto) 10.0 % Eos % (Auto) 0.9 % Baso % (Auto) 0.2 % Neut # (Auto) 6.64 H (1.4-6.5) K/uL Lymph # (Auto) 1.26 (1.2-3.4) K/uL [place] # (Auto) 0.89 H (0.11-0.59) K/uL Eos # (Auto) 0.08 (0-0.5) K/uL Baso # (Auto) 0.02 (0-0.2) K/uL Immature Gran # (Auto) 0.03 H (0.00-0.02) K/uL PT > 90.0 H (9.0-12.0) Seconds INR > 10.7 H* (0.9-1.1) ABG pH (7.35-7.45) ABG pCO2 (35-46) mmHg ABG pO2 (80-95) mmHg ABG HCO3 (19-24) mmol/L ABG O2 Saturation (90-95) % ABG Base Excess (-9-1.8) mEq/L Nabeel Test (Pos) Barometric Pressure mm/Hg Oxygen Given Sodium (136-145) mmol/L Potassium (3.5-5.1) mmol/L Chloride (98-107) mmol/L Carbon Dioxide (21-32) mmol/L Anion Gap (3-11) BUN (6-23) mg/dl Creatinine (0.6-1.4) mg/dl Est Cr Clr Drug Dosing ml/min Est GFR ( Amer) ml/min Est GFR (Non-Af Amer) ml/min BUN/Creatinine Ratio (10-20) Glucose (70-99(Fasting)) mg/dl POC Glucose 321 H* (70-99) mg/dl Estimat Average Glucose mg/dl Hemoglobin A1c (4.5-5.6) % Calcium (8.5-10.1) mg/dl Phosphorus (2.5-4.9) mg/dl Magnesium (1.7-2.4) mg/dl Total Bilirubin (0.2-1.0) mg/dl AST (13-39) U/L ALT (7-52) U/L Alkaline Phosphatase (34-104) U/L Total Protein (6.0-8.3) gm/dl Albumin (3.4-5.0) gm/dl Globulin (2.5-4.0) gm/dl Albumin/Globulin Ratio (0.9-2) SARS-CoV-2, RNA, NAAT (NEGATIVE) Blood Type Antibody Screen Crossmatch 08/08/21 08/08/21 08/08/21 Range/Units 02:15 02:15 02:40 WBC (4.8-10.8) K/uL RBC (4.7-6.1) M/uL Hgb (14.0-18.0) g/dL Hct (42-52) % MCV (80-100) fL MCH (25-34) pg MCHC (32-36) g/dL RDW Std Deviation (36.4-46.3) fL RDW Coeff of Jaxson (11.5-14.5) % Plt Count (130-400) K/uL MPV (7.4-10.4) fL Immature Gran % (Auto) % Neut % (Auto) % Lymph % (Auto) % [place] % (Auto) % Eos % (Auto) % Baso % (Auto) % Neut # (Auto) (1.4-6.5) K/uL Lymph # (Auto) (1.2-3.4) K/uL [place] # (Auto) (0.11-0.59) K/uL Eos # (Auto) (0-0.5) K/uL Baso # (Auto) (0-0.2) K/uL Immature Gran # (Auto) (0.00-0.02) K/uL PT (9.0-12.0) Seconds INR (0.9-1.1) ABG pH (7.35-7.45) ABG pCO2 (35-46) mmHg ABG pO2 (80-95) mmHg ABG HCO3 (19-24) mmol/L ABG O2 Saturation (90-95) % ABG Base Excess (-9-1.8) mEq/L Nabeel Test (Pos) Barometric Pressure mm/Hg Oxygen Given Sodium 134 L (136-145) mmol/L Potassium 4.6 (3.5-5.1) mmol/L Chloride 103 (98-107) mmol/L Carbon Dioxide 20 L (21-32) mmol/L Anion Gap 11 (3-11) BUN 20 (6-23) mg/dl Creatinine 1.16 (0.6-1.4) mg/dl Est Cr Clr Drug Dosing 116.1 ml/min Est GFR ( Amer) 81.7 ml/min Est GFR (Non-Af Amer) 70.5 ml/min BUN/Creatinine Ratio 17.2 (10-20) Glucose 329 H* (70-99(Fasting)) mg/dl POC Glucose (70-99) mg/dl Estimat Average Glucose 174 mg/dl Hemoglobin A1c 7.7 H (4.5-5.6) % Calcium 9.4 (8.5-10.1) mg/dl Phosphorus 2.6 (2.5-4.9) mg/dl Magnesium 1.6 L (1.7-2.4) mg/dl Total Bilirubin 1.8 H (0.2-1.0) mg/dl AST 11 L (13-39) U/L ALT 8 (7-52) U/L Alkaline Phosphatase 57 (34-104) U/L Total Protein 6.5 (6.0-8.3) gm/dl Albumin 3.1 L (3.4-5.0) gm/dl Globulin 3.4 (2.5-4.0) gm/dl Albumin/Globulin Ratio 0.9 (0.9-2) SARS-CoV-2, RNA, NAAT NEGATIVE (NEGATIVE) Blood Type Antibody Screen Crossmatch 08/08/21 08/08/21 08/08/21 Range/Units 04:00 04:00 04:45 WBC (4.8-10.8) K/uL RBC (4.7-6.1) M/uL Hgb (14.0-18.0) g/dL Hct (42-52) % MCV (80-100) fL MCH (25-34) pg MCHC (32-36) g/dL RDW Std Deviation (36.4-46.3) fL RDW Coeff of Jaxson (11.5-14.5) % Plt Count (130-400) K/uL MPV (7.4-10.4) fL Immature Gran % (Auto) % Neut % (Auto) % Lymph % (Auto) % [place] % (Auto) % Eos % (Auto) % Baso % (Auto) % Neut # (Auto) (1.4-6.5) K/uL Lymph # (Auto) (1.2-3.4) K/uL [place] # (Auto) (0.11-0.59) K/uL Eos # (Auto) (0-0.5) K/uL Baso # (Auto) (0-0.2) K/uL Immature Gran # (Auto) (0.00-0.02) K/uL PT (9.0-12.0) Seconds INR (0.9-1.1) ABG pH 7.46 H (7.35-7.45) ABG pCO2 28 L (35-46) mmHg ABG pO2 121 H (80-95) mmHg ABG HCO3 20 (19-24) mmol/L ABG O2 Saturation 98.2 H (90-95) % ABG Base Excess -3.1 (-9-1.8) mEq/L Nabeel Test Pos (Pos) Barometric Pressure 734.8 mm/Hg Oxygen Given ROOM AIR Sodium (136-145) mmol/L Potassium (3.5-5.1) mmol/L Chloride (98-107) mmol/L Carbon Dioxide (21-32) mmol/L Anion Gap (3-11) BUN (6-23) mg/dl Creatinine (0.6-1.4) mg/dl Est Cr Clr Drug Dosing ml/min Est GFR ( Amer) ml/min Est GFR (Non-Af Amer) ml/min BUN/Creatinine Ratio (10-20) Glucose (70-99(Fasting)) mg/dl POC Glucose 326 H* (70-99) mg/dl Estimat Average Glucose mg/dl Hemoglobin A1c (4.5-5.6) % Calcium (8.5-10.1) mg/dl Phosphorus (2.5-4.9) mg/dl Magnesium (1.7-2.4) mg/dl Total Bilirubin (0.2-1.0) mg/dl AST (13-39) U/L ALT (7-52) U/L Alkaline Phosphatase (34-104) U/L Total Protein (6.0-8.3) gm/dl Albumin (3.4-5.0) gm/dl Globulin (2.5-4.0) gm/dl Albumin/Globulin Ratio (0.9-2) SARS-CoV-2, RNA, NAAT (NEGATIVE) Blood Type AB Positive Antibody Screen NEGATIVE Crossmatch See Detail Imaging Data My Impression: X-ray: I interpreted the following studies. Chest: A single view study of the chest was reviewed and was negative for focal infiltrate, effusion, pulmonary edema, or wide mediastinum. Mild CM noted, pacer noted. Right foot: No obvious fracture or dislocation Radiologist's Impression: CT head: No acute intracranial abnormality. If there is further concern for nonketotic hyperglycemic hemichorea, consider MRI. Radiologist: Jorge Alberto Murdock MD CT SCAN OF THE RIGHT FEMUR WITH IV CONTRAST CLINICAL HISTORY: Anemia. Hematoma. Right leg pain. Elevated INR. COMPARISON STUDY: Radiographs of the right femur dated 08/05/2021. TECHNIQUE: CT scan of the right femur is performed from the bony pelvis to the knee. Images are reviewed in the axial, sagittal, and coronal planes. IV contrast was administered without complication. A dose lowering technique was utilized adhering to the principles of ALARA. CT DOSE: 2339.03 mGy.cm FINDINGS: The skeletal structures are well mineralized. There is no evidence of right femoral fracture. The visualized right hemipelvis appears intact. The hip and knee joints are maintained. No lytic or blastic lesion is seen. There is a knee joint effusion. Diffuse soft tissue edema is seen throughout the right thigh. There is generalized atrophy of the regional musculature. There is a large hematoma centered in the quadriceps musculature. This measures approximately 23 x 6 x 8 cm in aggregate dimension. There are mixed attenuation blood products with a hematocrit level seen on image #384. Active extravasation is seen on image #309. No evidence of enhancing mass lesion is seen. The femoral vessels appear patent. A kidney is partially visualized in the right anterior pelvis. Imaged portions of the bladder show bladder distention. Surgical changes noted in the right groin. There is no right pelvic sidewall or inguinal ly mphadenopathy. No soft tissue gas is identified. IMPRESSION: 1. There is a large intramuscular hematoma centered in the quadriceps musculature as above with mixed attenuation blood products and evidence of active extravasation. 2. The right femur is intact. 3. Diffuse soft tissue edema is present throughout the right thigh. 4. A kidney is partially visualized in the right anterior pelvis, possibly representing a transplant. Clinical correlation will be required. ACT 112: Negative or not required by law. Electronically signed by: Nick Burleson M.D. 08/08/2021 6:06 AM ECG Data Attestation: I personally reviewed and interpreted this ECG as follows: Indication: + weakness Rate (beats per minute): 94 Rhythm: + normal sinus ECG Intervals/blocks: + Normal QRS and + Prolonged QT ECG [place]: + Left axis deviation ECG ST segments: + Nonspecific ST abnormalities MDM Narrative This a 56-year-old male presents emergency department with mother due to her concern for hyperglycemia. Given patient's clinical appearance of dehydration, hyperglycemia noted by them and history of a diabetic, and slightly fruity smell, DKA was suspected initially. While labs did show hyperglycemia, no evidence of DKA otherwise. Patient was noted to have worsening anemia compared to labs 3 days prior. Patient also noted to have supratherapeutic INR again which had previously been corrected with vitamin K and patient instructed not to take his Coumadin. Given ecchymosis noted to right lower extremity and concern for possible AMS versus patient being uncooperative secondary to pain, patient was sent for additional imaging. CT of the head did not reveal any intracranial hemorrhage, x-ray is otherwise unremarkable and patient and mother had denied any trauma. On review of patient's prior visit the lower extremity Doppler did reveal a hematoma which was considered to be the source of his right lower extremity pain at that time. Due to worsening anemia and persistent INR elevation, patient sent for CT. There was significant delay in obtaining result s of this from the overnight radiology group, our in-house radiologist read this in the morning. No evidence of active extravasation from a vessel, the extra have noted in the hematoma is likely due to the supratherapeutic INR and ongoing bleeding. Patient was given 10 of IV vitamin K to reverse, a type and screen was added as a precaution as I suspect the anemia is secondary to ongoing blood loss but he may be hemoconcentrated at this time due to his apparent clinical dehydration and his ultimate anemia may in fact be worse. I do not suspect other occult infectious etiology at this time. Case discussed with hospitalist for additional evaluation and management. Patient was slightly improved after IV fluid rehydration, this was continued at a slower rate into the second liter due to patient's history and unclear cardiac status. An order was placed for continuous cardiac monitoring. The monitor shows a rate of _72__ with _normal sinus__ rhythm. Impression & Plan Hyperglycemia, Supratherapeutic INR, Acute pain of right foot, Anemia, Dehydration Discharge Plan Visit Data Chief Complaint: Hyperglycemia Stated Complaint: HYPERGLYCEMIA ED Provider: Ciara Ann Discharge Problem: Hyperglycemia, Supratherapeutic INR, Acute pain of right foot, Anemia, Dehydration Patient Disposition: Admitted As Inpatient Discharge Instructions Interventions: ED Discharge Assessment Last Done: 08/08/21 08:53 Discharge Problem: Anemia Qualifiers: Anemia type: unspecified type Qualified Code(s): D64.9 - Anemia, unspecified
[2021-08-08 02:46] LABS: Basophils # (auto) 0.02 K/uL (0-0.2); Basophils % (auto) 0.2 %; Eosinophils # (auto) 0.08 K/uL (0-0.5); Eosinophils % (auto) 0.9 %; Hematocrit (blood only) 25.1 % (42-52); Immature Granulocytes # (auto) 0.03 K/uL (0.00-0.02); Immature Granulocytes % (auto) 0.3 %; Lymphocytes # (auto) 1.26 K/uL (1.2-3.4); Lymphocytes % (auto) 14.1 %; Mean Corpuscular Hemoglobin 26.1 pg (25-34); Mean Corpuscular Hgb Conc 31.9 g/dL (32-36); Mean Corpuscular Volume 81.8 fL (80-100); Mean Platelet Volume 9.4 fL (7.4-10.4); Monocytes # (auto) 0.89 K/uL (0.11-0.59); Neutrophils # (auto) 6.64 K/uL (1.4-6.5); Neutrophils % (auto) 74.5 %; Platelet Count 397 K/uL (130-400); RDW Coefficient of Variation 15.3 % (11.5-14.5); RDW Standard Deviation 44.5 fL (36.4-46.3); Red Blood Count 3.07 M/uL (4.7-6.1); White Blood Count 8.92 K/uL (4.8-10.8)
[2021-08-08 03:00] LABS: Albumin Globulin Ratio 0.9 (0.9-2); Albumin Level 3.1 gm/dl (3.4-5.0); BUN Creatinine Ratio 17.2 (10-20); Bilirubin,Total 1.8 mg/dl (0.2-1.0); Calcium 9.4 mg/dl (8.5-10.1); Creatinine Clr Calc Pharmacy 116.1 ml/min; Est GFR (African American) 81.7 ml/min; Est GFR (Non-African American) 70.5 ml/min; Globulin 3.4 gm/dl (2.5-4.0); Magnesium 1.6 mg/dl (1.7-2.4); Phosphorus 2.6 mg/dl (2.5-4.9); Potassium 4.6 mmol/L (3.5-5.1); Total Protein 6.5 gm/dl (6.0-8.3)
[2021-08-08 03:13] LABS: Prothrombin Time > 90.0 Seconds (9.0-12.0)
[2021-08-08 03:18] LABS: INR > 10.7 (0.9-1.1)
[2021-08-08] MEDS ORDERED: PHYTONADIONE 5 MG in DEXTROSE 5% 50 ML IV ONE (03:32)
[2021-08-08] MEDS ORDERED: PHYTONADIONE 10 MG in DEXTROSE 5% 50 ML IV ONE (03:34)
[2021-08-08 04:18] LABS: Base Excess ABG -3.1 mEq/L (-9-1.8); HCO3 ABG 20 mmol/L (19-24); Oxygen Saturation ABG 98.2 % (90-95); PCO2 ABG 28 mmHg (35-46); PO2 ABG 121 mmHg (80-95); pH ABG 7.46 (7.35-7.45)
[2021-08-08] MEDS ORDERED: OPTIRAY 320 125ml IV ONE (04:18)
[2021-08-08 04:19] LABS: Allen Test Pos (Pos)
[2021-08-08] MEDS ORDERED: MAGNESIUM SULFATE / D5W 1 GM/100 ML BAG IV STA (04:44)
[2021-08-08] MEDS ORDERED: NovoLIN-R INSULIN PER UNIT CHARGE SC STA (05:34)
[2021-08-08] MEDS: LACTATED RINGER'S 1,000 ML IV SCH ×2 (05:34→10:35)
[2021-08-08] MEDS ORDERED: fentaNYL citrate 100 MCG/2 ML VIAL IV STA (05:35)
[2021-08-08] MEDS ORDERED: ACETAMINOPHEN 1,000 MG/100 ML VIAL IV STA (05:35)
--- NOTE | 2021-08-08 06:08 | CT Scan Report ---
CT SCAN OF THE RIGHT FEMUR WITH IV CONTRAST CLINICAL HISTORY: Anemia. Hematoma. Right leg pain. Elevated INR. COMPARISON STUDY: Radiographs of the right femur dated 08/05/2021. TECHNIQUE: CT scan of the right femur is performed from the bony pelvis to the knee. Images are revi ewed in the axial, sagittal, and coronal planes. IV contrast was administered without complication. A dose lowering technique was utilized adhering to the principles of ALARA. CT DOSE: 2339.03 mGy.cm FINDINGS: The skeletal structures are well mineralized. There is no evidence of right femoral fractur e. The visualized right hemipelvis appears intact. The hip and knee joints are maintained. No lytic o r blastic lesion is seen. There is a knee joint effusion. Diffuse soft tissue edema is seen throughou t the right thigh. There is generalized atrophy of the regional musculature. There is a large hematom a centered in the quadriceps musculature. This measures approximately 23 x 6 x 8 cm in aggregate dime nsion. There are mixed attenuation blood products with a hematocrit level seen on image #384. Active extravasation is seen on image #309. No evidence of enhancing mass lesion is seen. The femoral vessel s appear patent. A kidney is partially visualized in the right anterior pelvis. Imaged portions of th e bladder show bladder distention. Surgical changes noted in the right groin. There is no right pelvi c sidewall or inguinal lymphadenopathy. No soft tissue gas is identified. IMPRESSION: 1. There is a large intramuscular hematoma centered in the quadriceps musculature as above with mixed attenuation blood products and evidence of active extravasation. 2. The right femur is intact. 3. Diffuse soft tissue edema is present throughout the right thigh. 4. A kidney is partially visualized in the right anterior pelvis, possibly representing a transplant. Clinical correlation will be required. ACT 112: Negative or not required by law. Electronically signed by: Nick Burleson M.D. 08/08/2021 6:06 AM
--- NOTE | 2021-08-08 06:28 | XRay Report ---
RIGHT FOOT 3 VIEWS CLINICAL HISTORY: Right foot pain and bruising. FINDINGS: 3 views of the right foot are obtained. No prior studies are available for comparison at th e time of dictation. The examination is difficult to interpret due to significant degenerative change , malpositioning, and chronic deformity. The skeletal structures are osteopenic. No acute fracture is clearly identified. There is chronic appearing posttraumatic deformity through the base of the secon d, third, fourth, and fifth metatarsals. There is angulation at the fracture sites of the fourth and fifth metatarsals. There is varus deformity of the midfoot. Erosive osteoarthritic change is seen at the first interphalangeal joint. Hammertoe deformities are suggested. Moderate osteoarthritic change is seen at the first metatarsophalangeal joint. Moderate degenerative changes noted in the midfoot. S oft tissue edema is present throughout the forefoot. IMPRESSION: 1. Soft tissue edema with no acute fracture clearly identified. 2. Osteopenia with chronic posttraumatic and degenerative change as well as varus deformity of the mi dfoot. Electronically signed by: Nick Burleson M.D. 08/08/2021 6:27 AM
--- NOTE | 2021-08-08 06:40 | XRay Report ---
KUB CLINICAL HISTORY: Constipation. FINDINGS: 4 AP supine abdominal radiographs are obtained. No prior studies are available for comparis on at the time of dictation. There is a nonobstructed abdominal bowel gas pattern. Mild to moderate f ecal retention is noted throughout the colon. No evidence of intraperitoneal free air is seen on thes e supine views. No abnormal abdominal calcifications are identified. Postoperative change is noted in the right groin. The bladder appears distended. The skeletal structures are osteopenic. The bony tho rax appears intact. The heart is enlarged and pacemaker leads are partially imaged. IMPRESSION: Mild to moderate colonic fecal retention. Electronically signed by: Nick Burleson M.D. 08/08/2021 6:39 AM
--- NOTE | 2021-08-08 06:42 | XRay Report ---
SINGLE VIEW CHEST CLINICAL HISTORY: Hyperglycemia. FINDINGS: An AP, portable, upright chest radiograph is compared to study dated 08/05/2021. A 2-lead car diac pacemaker is unchanged in position and partially obscures the right upper chest. The heart is en larged noting atherosclerotic calcification of the thoracic aorta. There is prominence of the pulmona ry vasculature. Chronic elevation of the right hemidiaphragm is similar to previous and there is biba silar atelectasis. No airspace consolidation or large pleural effusion is identified. No pneumothorax is seen. The skeletal structures are osteopenic. The bony thorax is grossly intact. IMPRESSION: 1. Cardiomegaly and cardiac pacemaker with prominence of the pulmonary vasculature. Correlate clinica lly for evidence of fluid overload/mild congestive change. 2. No airspace consolidation or large pleural effusion is identified. ACT 112: Negative or not required by law. Electronically signed by: Nick Burleson M.D. 08/08/2021 6:40 AM
--- NOTE | 2021-08-08 06:45 | CT Scan Report ---
CT SCAN OF THE BRAIN WITHOUT IV CONTRAST CLINICAL HISTORY: Hyperglycemia. Change in mental status. COMPARISON STUDY: CT of the brain dated 04/10/2017. TECHNIQUE: Unenhanced axial CT scan of the brain is performed from the vertex to the skull base. A d ose lowering technique was utilized adhering to the principles of ALARA. CT DOSE: 1645.08 mGy.cm FINDINGS: Brain parenchyma: The brain parenchyma is normal in appearance. There is no hemorrhage, mass effect, or evidence of acute territorial ischemia by CT criteria. Cowan-white matter differentiation is preser laura. No extra-axial fluid collection is seen. Ventricles, sulci, cisterns: Normal in configuration. Intracranial vasculature: The visualized intracranial vasculature at the skull base is normal in appe arance. Calvarium: Unremarkable. Sinuses and mastoids: There is subtotal opacification of the left maxillary antrum. Trace mucosal thi ckening is seen in the right maxillary sinus, the sphenoid sinuses, the frontal sinuses, and the left ethmoid sinuses. The mastoid air cells are well pneumatized. Orbits: The bony orbits are grossly intact. There are bilateral ocular lens implants. IMPRESSION: 1 There is no hemorrhage, mass effect, or evidence of acute territorial ischemia by CT criteria. 2. Left maxillary sinus disease as above. ACT 112: Negative or not required by law. Electronically signed by: Nick Burleson M.D. 08/08/2021 6:43 AM
[2021-08-08] MEDS ORDERED: STAT IV Infusion **Titration per Protocol STA (07:09)
[2021-08-08] MEDS ORDERED: PROTHROMBIN COMP CONC- KCENTRA 5,000 UNITS in SYRINGE 0 ML IV SCH (07:30)
[2021-08-08 08:57] LABS: Estimated Average Glucose 174 mg/dl; Hemoglobin A1C 7.7 % (4.5-5.6)
[2021-08-08] MEDS ORDERED: PIPERACILLIN/TAZOBACTAM 3.375 GM in DEXTROSE 5% 100 ML IV SCH (09:16)
[2021-08-08] MEDS ORDERED: HYDROmorphone INJ 0.5 MG/0.5 ML SYR IV PRN (09:16)
[2021-08-08] MEDS ORDERED: INSULIN PROTOCOL GOAL RANGE ONE (09:16)
[2021-08-08] MEDS ORDERED: DC ALL PREVIOUSLY ORDERED DIABETES MEDS ONE (09:16)
[2021-08-08] MEDS ORDERED: PIPERACILL/TAZOBAC CONSULT ACTIVE PRN (09:16)
[2021-08-08] MEDS ORDERED: POLYETHYLENE (MIRALAX) 17 GM PACK PO PRN (09:16)
[2021-08-08] MEDS ORDERED: NITROGLYCERIN SL 0.4 MG/TAB TAB SL PRN (09:16)
[2021-08-08] MEDS ORDERED: oxyCODONE HCL IR 5 MG TAB (IMMEDIATE RELEASE) PO PRN (09:16)
[2021-08-08] MEDS ORDERED: MODERATE STRESS LEVEL ONE (09:16)
[2021-08-08] MEDS ORDERED: ACETAMINOPHEN 325 MG TAB PO PRN (09:16)
[2021-08-08] MEDS ORDERED: SODIUM CHLORIDE 0.9% 250 ML IV PRN ×2 (09:16→15:23)
[2021-08-08] MEDS ORDERED: PHARMACY GLYCEMIC MGMT CONSULT PRN (09:16)
[2021-08-08] MEDS ORDERED: ONDANSETRON INJ 2 MG/ML 2 ML VIAL IV PRN (09:16)
[2021-08-08 09:37] LABS: Hematocrit (blood only) 22.7 % (42-52); Hemoglobin 7.3 g/dL (14.0-18.0)
[2021-08-08] MEDS ORDERED: PIPERACILLIN/TAZOBACTAM 4.5 GM in DEXTROSE 5% 100 ML IV ONE (09:45)
[2021-08-08] MEDS ORDERED: INSULIN HUMAN REGULAR IV BOLUS 4 UNITS in SYRINGE 0 ML IV ONE (09:45)
[2021-08-08] MEDS: TACROLIMUS 1 MG CAP PO SCH ×2 (10:17→21:01)
[2021-08-08] MEDS: PANTOprazole 40 MG TAB PO SCH (10:17)
[2021-08-08] MEDS: ROSUVASTATIN CALCIUM 20 MG TAB PO SCH (10:17)
[2021-08-08] MEDS: METOPROLOL TARTRATE 25 MG TAB PO SCH ×2 (10:17→21:01)
[2021-08-08] MEDS: BACLOFEN 20 MG TAB PO SCH ×2 (10:17→21:01)
[2021-08-08] MEDS: SODIUM CHLORIDE 0.9% 1000ML 1,000 ML IV SCH ×2 (10:18→15:24)
[2021-08-08] MEDS: MYCOPHENOLATE MOFETIL 250 MG CAP PO SCH ×2 (10:18→21:01)
[2021-08-08] MEDS: amLODIPine BESYLATE 5 MG TAB PO SCH (10:18)
[2021-08-08] MEDS: CHOLECALCIFEROL 1,000 UNITS 25 MCG TAB PO SCH (10:18)
[2021-08-08] MEDS: INSULIN REGULAR 250 UNITS in SODIUM CHLORIDE 0.9% 247.5 ML IV SCH (10:19)
--- NOTE | 2021-08-08 10:28 | Electrocardiogram Report ---
Test Reason : Blood Pressure : / mmHG Vent. Rate : 095 BPM Atrial Rate : 095 BPM P-R Int : 156 ms QRS Dur : 110 ms QT Int : 400 ms P-R-T Axes : 063 -54 066 degrees QTc Int : 502 ms Poor data quality, interpretation may be adversely affected Normal sinus rhythm Left anterior fascicular block Abnormal ECG When compared with ECG of 08-AUG-2021 02:15, No significant change was found Confirmed by Steven Benites ([id number]) on 08/08/2021 10:28:15 AM Referred By: REFERRED SELF Confirmed By:Steven Benites
--- NOTE | 2021-08-08 10:28 | Electrocardiogram Report ---
Test Reason : Blood Pressure : / mmHG Vent. Rate : 094 BPM Atrial Rate : 094 BPM P-R Int : 126 ms QRS Dur : 114 ms QT Int : 406 ms P-R-T Axes : 022 -52 070 degrees QTc Int : 507 ms Poor data quality, interpretation may be adversely affected Normal sinus rhythm Left anterior fascicular block Abnormal ECG When compared with ECG of 05-AUG-2021 15:54, Premature atrial complexes are no longer Present Confirmed by Steven Benites ([id number]) on 08/08/2021 10:28:03 AM Referred By: REFERRED SELF Confirmed By:Steven Benites
--- NOTE | 2021-08-08 11:04 | History and Physical Report ---
DATE OF ADMISSION: 08/08/2021. CHIEF COMPLAINT: Hyperglycemia and confusion. HISTORY OF PRESENT ILLNESS: This is a 56-year-old male with past medical history significant for diabetes type 2, not at goal, diabetic peripheral neuropathy, hyperthyroidism, obstructive sleep apnea, AFib, sick sinus syndrome, tachybrady syndrome, status post pacemaker, pulmonary artery hypertension, history of symptomatic sinus bradycardia, morbid obesity, endstage renal disease status post renal transplant, history of anemia, was brought in by mother because he was found confused and sugars were running high at home. He was in the ER a couple of days ago with right sided leg pain. He was found to have elevated INR 10.2. Seems he was taking Coumadin 2.5 mg daily . Because of the COVID, he was not able to see his anticoagulation doctor as per the ER notes and at that time, ultrasound showed no DVT, but complex structure with the anterior right thigh measuring 9.7 cm suggesting hematoma.Minimal color flow suspicious for active extravasation and it was thought that the patient was having pain due to hematoma and Klaus bandage was placed to compress the hematoma and stop any bleeding. At that time, it was not thought not to be needed to admit for any surgical intervention as vitamin K was given and with compression, active bleeding was expected to stop and the patient was discharged to follow up with PCP. Advised to follow with the [facility].And today mother found somewhat confused and was concerned for his hyperglycemia, sugars were 400 and he was not acting himself and he was brought in here. In the ER again, his INR was found to be elevated at greater than 10 and when the mother was in the room, per the ER physician he did not talk much. He was also given fentanyl in the ER. Currently mother is not in the room.Patient received fluids, Currently he could tell his name, could tell that he is in the hospital, could tell his date of , only he was confused with the current dates, did complain a lot of pain in the right thigh region. Denies any headache. No blurred visions, no runny nose, no cough, no fevers, no chest pain, no shortness of breath, no nausea, no abdominal pain. He says he is not making much urine because he is not drinking much, he says he was sleeping a lot. Denies any blood in the stools and his hemoglobin was 8, it was 10.2 couple of days ago and again CAT scan showing large hematoma 23 x 6 x 8 cm in aggregate dimension, and still showing possible evidence of active extravasation. Hemodynamically stable. Creatinine is 1.1. His sugars are running high at 326. There is no anion gap, though CO2 is 20. Magnesium 1.6, was replaced in the ER. COVID is negative. The patient seems to be dry. ALLERGIES: No known drug allergies. PAST MEDICAL HISTORY: As mentioned above. PAST SURGICAL HISTORY: Amputation of the left great toe, AV access, cataract surgery, colonoscopy, pacemaker insertion, laser trabeculoplasty, transplantation of kidney in 2015. MEDICATIONS: The patient is on Tylenol 650 mg p.o. q. 6 hours p.r.n., amlodipine 10 mg p.o. a.m., baclofen 20 mg p.o. b.i.d., vitamin D 25 mcg p.o. a.m., Humalog sliding scale, Lantus 15 units subcutaneous at bedtime, metoprolol tartrate 25 mg p.o. b.i.d., mycophenolate mofetil 500 mg p.o. b.i.d., omeprazole 20 mg p.o. a.m., oxycodone 5 mg p.o. q. 8 hours p.r.n., pravastatin 20 mg p.o. a.m., tacrolimus 2 mg p.o. a.m., tacrolimus 3 mg p.o. p.m., warfarin as directed. FAMILY HISTORY: Significant for son has cleft lip and palate; mother has diabetes. Father has Parkinson's disease. SOCIAL HISTORY: , no smoking, no alcohol, no drug use. REVIEW OF SYSTEMS: As per HPI, could not get complete review of systems as the patient is somewhat confused. PHYSICAL EXAMINATION: GENERAL: The patient is morbidly obese, not in acute distress. VITAL SIGNS: Temperature 36.6, pulse 86, respiratory rate 15, blood pressure 162/66, oxygen 96% on 2 liters. HEENT: Pupils equal, round and reactive to light. Oral mucosa dry. NECK: No JVD or neck masses. CARDIOVASCULAR: S1 and S2 heard. Regular rate and rhythm. No murmur, no gallop. RESPIRATORY SYSTEM: Normal AP diameter. No accessory muscle use. No wheezing, no crackles. ABDOMEN: Soft, bowel sounds present, nontender, no distention. CENTRAL NERVOUS SYSTEM: Alert and oriented x2. Speech is clear. Obeys simple commands. No facial droop. Extraocular muscles intact. Moves extremities. EXTREMITIES: Left leg is somewhat swollen and tender. No erythema seen. LABORATORY DATA: WBC 8.9, hemoglobin 8, hematocrit 25.1, platelets 397. PT greater than 90, INR greater than 10.7. ABG, pH of 7.46, pCO2 of 28, pO2 of 121, bicarbonate 20, oxygen saturation 98% on room air. Sodium 134, potassium 4.6, chloride 103, bicarbonate 20, anion gap 11, BUN 20, creatinine 1.1, serum glucose 329, calcium 9.4, phosphorus 2.6, magnesium 1.6, total bilirubin 1.8, AST 11, ALT 8, alkaline phosphatase 57. SARS-CoV-2 negative. IMAGING DATA: CT of the femur with IV contrast large intramuscular hematoma, centered in the quadriceps musculature 23 x 6 x 8 cm, and evidence of active extravasation, right femur is intact. Diffuse soft tissue edema is present throughout the right thigh. KUB x-ray, [id number] colonic fecal retention. CT of the head, there is no hemorrhage, mass effect or evidence of acute territorial ischemia. Foot x-ray on the right foot soft tissue edema with no acute fracture. Chest x-ray, no airspace consolidation. EKG: Normal sinus rhythm, left anterior fascicular block at a rate of 94, prolonged QT at 507. ASSESSMENT AND PLAN: This 56-year-old male presents with hyperglycemia, confusion, anemia, hematoma, elevated INR. 1. Confusion, probably secondary to dehydration from his hyperglycemia, rule out any infection. We will empirically start him on Zosyn. Follow the cultures, placed on IV fluids, found to have right thigh hematoma, possible active extravasation. It was similar to a couple of days ago ultrasound but enlarged , received IV vitamin K, INR of greater than 10. Also, going to get Kcentra. Follow the INR. H and H q. 6 hours. Verbal blood consent obtained. Not able to reach his mother. Type and cross and hold, 2 units of PRBCs. Follow H and H. Ortho consult. Pain control. Holding Coumadin. 2. Presently hyperglycemia, not in diabetic ketoacidosis, started on IV insulin drip protocol for hyperglycemia, pharmacy consult.IV fluids. Follow BMP q. 4 hours while the patient is on IV insulin. 3. Hypomagnesemia, replace. 4. Hyperlipidemia, continue statin. 5. Renal transplant. Continue tacrolimus and mycophenolate. Follow the labs. 6. Hypertension. Continue the Lopressor, amlodipine. Monitor the blood pressure. 7. Sleep apnea. Continue CPAP at bedtime. 8. Morbid obesity. Needs counseling. 9. History of atrial fibrillation, tachybrady syndrome, sick sinus syndrome, status post pacemaker. Continue metoprolol. Holding his Coumadin because of the above. 10. Deep venous thrombosis prophylaxis: INR supratherapeutic. 11. Anemia, acute blood loss anemia. Management as above. DISPOSITION: Closely monitor in the tele. Level 1 full code. PT/OT prior to discharge. Social service to help with discharge planning. Job ID: [id number] [id number]
[2021-08-08] MEDS: INSULIN ASPART PER UNIT SC SCH ×4 (11:28→21:06)
--- NOTE | 2021-08-08 14:21 | Pharmacy Report ---
Pharmacy Glycemic Short Note 2 - Date of Service August 08, 2021 - Glycemic Short BSG Results (Last 24 hours): 08/08/21 08/08/21 08/08/21 02:13 02:15 04:45 Glucose 329 H* POC Glucose 321 H* 326 H* 08/08/21 08/08/21 08/08/21 09:23 09:24 11:02 Glucose POC Glucose 353 H* 370 H* 247 H 08/08/21 08/08/21 12:09 13:07 Glucose POC Glucose 214 H 216 H OUTPATIENT ANTIDIABETIC REGIMEN: * Lantus 50 units SC HS * Humalog 4 units SC AC + 1 unit per 50 mg/dL/unit above 150 mg/dL * HbA1c: 7.7% (08/08/21) ASSESSMENT: * CR is a 56 year old male presented to ED this morning due to altered mental status * Found to have BSG of 329 mg/dL and INR > 10.7 at time or presentation, subsequently received Kcentra for right leg hematoma w/ possible extravasation * Pharmacy consulted for glycemic management upon transfer to floor * Insulin infusion initiated at that time * Labs largely stable, serum bicarbonate is slightly below normal range at 20 mmol/L, anion gap of 11 * Repeat labs this afternoon * Patient currently NPO * Pertinent PMH includes hx of renal transplant, T2DM, morbid obesity, Afib, HTN, and hyperlipidemia PLAN FOR INPATIENT GLYCEMIC CONTROL: * Basal insulin * Lantus 35 units SC x 1 this afternoon to aid insulin drip transition (~70% of home dose in light of NPO status) * Bolus insulin * NovoLog per scale ACHS or Q6hrs while NPO * Goal Range: Low 110 mg/dL - High 180 mg/dL * Nutritional / Prandial insulin per insulin gtt calculator PLAN FOR DISCHARGE: * tbd
[2021-08-08] MEDS ORDERED: INSULIN GLARGINE SOLOSTAR 100 UNITS/ML 3 ML PEN SC ONE (14:30)
[2021-08-08 15:16] LABS: Hematocrit (blood only) 18.9 % (42-52); Hemoglobin 5.9 g/dL (14.0-18.0); Mean Corpuscular Hemoglobin 25.7 pg (25-34); Mean Corpuscular Hgb Conc 31.2 g/dL (32-36); Mean Corpuscular Volume 82.2 fL (80-100); Mean Platelet Volume 9.3 fL (7.4-10.4); Platelet Count 344 K/uL (130-400); RDW Coefficient of Variation 15.4 % (11.5-14.5); RDW Standard Deviation 45.1 fL (36.4-46.3); White Blood Count 7.47 K/uL (4.8-10.8)
[2021-08-08 15:28] LABS: INR 1.1 (0.9-1.1); Prothrombin Time 10.7 Seconds (9.0-12.0)
[2021-08-08 15:30] LABS: Calcium 8.7 mg/dl (8.5-10.1); Creatinine Clr Calc Pharmacy 132.3 ml/min; Est GFR (African American) 97.8 ml/min; Est GFR (Non-African American) 84.4 ml/min; Potassium 4.1 mmol/L (3.5-5.1)
[2021-08-08] MEDS: oxyCODONE HCL IR 5 MG TAB (IMMEDIATE RELEASE) PO PRN (17:39)
--- NOTE | 2021-08-08 17:46 | Consultation Report ---
DATE OF CONSULTATION: 08/08/2021. HISTORY OF PRESENT ILLNESS: This is a 56-year-old gentleman seen at request of Dr. Bhumi rojasing a large right thigh hematoma. The patient presented to the Emergency Department approximatel y 2 days ago with right sided thigh pain. Apparently, he had worsening symptoms since last Tuesday when he first noticed the issue and was attempting conservative management; however, it worsened ove r the last several days and then presented to the ER. He was evaluated and sent home; however, had w orsening symptoms and after use of an Klaus bandage and some vitamin K. still had symptoms, which were worsening, then presented to the ER due to worsening confusion and possible hyperglycemia with sugars approximately 400. Presented to the ER, INR was found to be elevated greater than 10. The patient was then admitted to the hospitalist service for multiple issues including a large thigh hematoma. O rthopedics was consulted regarding the hematoma. PAST MEDICAL HISTORY: Significant for diabetes type 2, diabetic peripheral neuropathy, hyperthyroidis m, obstructive sleep apnea, AFib, sick sinus syndrome, tachybrady syndrome, pulmonary artery hyperten gracia, symptomatic sinus bradycardia, morbid obesity, end-stage renal disease, status post renal trans plant, history of anemia. PAST SURGICAL HISTORY: Amputation, left great toe. Arterial and venous access, cataract surgery, co lonoscopy, pacemaker insertion, laser trabeculoplasty, transplantation of kidney in 2015. ALLERGIES: No known drug allergies. MEDICATIONS: Please note the list provided in the medical record. SOCIAL HISTORY: He is . He denies tobacco, alcohol, or illicit drug use. He does not work. He lives with his parents. PHYSICAL EXAMINATION: GENERAL: This is a 56-year-old gentleman, lying supine in hospital room bed. He is alert and orient ed x3. Speech clear and fluent. Affect is appropriate. He is morbidly obese. EXTREMITIES: Focused examination of the right thigh demonstrates moderate tenderness of the right th igh. Skin is warm, dry and intact. There is no significant ecchymosis or bruising. There is some lo shavonne induration of the lateral and posterolateral aspects of the right mid thigh. Thigh was somewhat soft. However, greater tension on the right compared to the left. There is a palpable hematoma with in the anterior compartment of the thigh. This is not rigid. Examination of the lower extremities d emonstrates dorsalis pedis and posterior tibial pulses are 2/4. He does have some bruising and ecchy mosis in the dorsum of the foot with what appears to be another hematoma. It is not tense and it is somewhat tender. Pulses are symmetric with the opposite uninvolved side of the lower extremities. S ensation is consistent with diabetic neuropathy. LABORATORY AND IMAGING: Were reviewed, noting a 23 x 6 x 8 cm intramuscular hematoma centered in the quadriceps musculature. IMPRESSION: 1. Right thigh hematoma. 2. Coagulopathy. 3. Multiple medical comorbidities. RECOMMENDATION: Continue nonoperative management with observation of the right thigh. A nonsurgical candidate at this time. Continue monitoring and would recommend a repeat ultrasound in 1-2 days to assess size of the hematoma. Alternate heat and cold to the right thigh p.r.n. comfort and reconsult Orthopedics should condition of symptoms worsen. Thank you for the opportunity to consult and care of this patient. Job ID: [id number]
[2021-08-08] MEDS: PIPERACILLIN/TAZOBACTAM 4.5 GM in DEXTROSE 5% 100 ML IV SCH (18:16)
--- NOTE | 2021-08-08 18:40 | Hospitalist Progress Note ---
Date of Service August 08, 2021 Assessment & Plan Plan: Acute blood loss anemia -Hb 10.2 from 08/05--> 7.2 this morning--> 5.9 currently -In setting of supratherapeutic INR, active bleed into right thigh -will give 2 units packed RBC now. Repeat CBC afterward. -Transfuse to keep Hb >8 with his underlying cardiovascular disease -May need Lasix PRN to avoid volume overload. Euvolemic currently Supratherapeutic INR -in setting of poor oral intake recently due to covid 19 infection (recovered) -s/p 10mg IV vitamin K and K centra -INR >10 on admission and 1.1 now Remaining Assessment and Plan per H&P from earlier today Admission and Anticipated Discharge Date Admission Date: August 08, 2021 Subjective Feels weak. Right thigh hurts. Denies leg numbness or paresthesia. Denies chest pain or shortness of breath Physical Exam Physical Exam: Appears pale, weak, non toxic Respiratory: clear to auscultation, no wheezing/rhonchi/rales Cardiovascular: regular rate and rhythm, no murmurs/rubs/gallops Gastrointestinal (Abdomen): soft, non tender Musculoskeletal: right thigh swollen and tender but not tense. Right foot is warm and perfused with palpable dorsalis pedis pulse Skin: some bruising on dorsum of right foot Neurologic: awake, alert Results & Data Results & Data ([facility]) Vital Signs (Past 12 Hours) Vital Signs Temp Pulse Pulse Resp BP BP Pulse Ox 08/08/21 17:12 36.7 C 67 18 139/71 100 08/08/21 16:42 36.7 C 66 18 138/68 98 08/08/21 16:27 36.5 C 67 18 136/68 97 08/08/21 16:11 36.5 C 65 18 126/66 100 08/08/21 15:42 36.6 C 70 17 138/72 100 08/08/21 12:00 90 08/08/21 11:05 36.9 C 83 16 152/71 H 100 08/08/21 08:45 36.9 C 84 26 H 164/70 H 100 08/08/21 08:00 89 22 193/73 H 08/08/21 07:30 87 23 186/70 H Laboratory Results Short CBC 08/08/21 08/08/21 08/08/21 Range/Units 02:15 09:28 14:45 WBC 8.92 7.47 (4.8-10.8) K/uL Hgb 8.0 L 7.3 L 5.9 L* (14.0-18.0) g/dL Hct 25.1 L 22.7 L 18.9 L* (42-52) % Plt Count 397 344 (130-400) K/uL BMP 08/08/21 08/08/21 02:15 14:45 Sodium 134 L 136 Potassium 4.6 4.1 Chloride 103 107 Carbon Dioxide 20 L 22 BUN 20 16 Creatinine 1.16 1.00 Glucose 329 H* 177 H Calcium 9.4 8.7 Liver Function 08/08/21 Range/Units 02:15 Total Bilirubin 1.8 H (0.2-1.0) mg/dl AST 11 L (13-39) U/L ALT 8 (7-52) U/L Alkaline Phosphatase 57 (34-104) U/L Albumin 3.1 L (3.4-5.0) gm/dl Medications Administered Current Inpatient Medications Acetaminophen (Acetaminophen 325 Mg Tab) 650 mg PO Q4H PRN PRN Reason: Pain or Fever Stop: 09/07/21 09:15 Amlodipine Besylate (Amlodipine Besylate 5 Mg Tab) 10 mg PO QAM [facility] Stop: 09/07/21 09:44 Last Admin: 08/08/21 10:18 Dose: 10 mg Documented by: Baclofen (Baclofen 20 Mg Tab) 20 mg PO BID [facility] Stop: 09/07/21 09:44 Last Admin: 08/08/21 10:17 Dose: 20 mg Documented by: Glucagon (Glucagon For Inj 1 Mg Vial) 1 mg SQ UD PRN; Protocol PRN Reason: Hypoglycemia Protocol Stop: 09/07/21 02:32 Hydromorphone HCl (Hydromorphone Inj 0.5 Mg/0.5 Ml Syr) 0.5 mg IV Q3H PRN PRN Reason: Pain Stop: 08/22/21 09:15 Insulin Human Regular 250 (units/ Sodium Chloride) 250 mls @ 5.3 mls/hr IV .Q24H [facility]; Protocol Stop: 09/07/21 09:44 Last Titration: 08/08/21 18:20 Dose: 5.3 units/hr, 5.3 mls/hr Documented by: Sodium Chloride (Nss) 250 mls @ 15 mls/hr IV .[id number] PRN PRN Reason: For Transfusion Stop: 09/07/21 09:15 Piperacillin Sod/Tazobactam (Sod 4.5 gm/ Dextrose) 120 mls @ 30 mls/hr IV Q8H [facility]; Protocol Stop: 08/10/21 15:59 Last Admin: 08/08/21 18:16 Dose: Not Given Documented by: Sodium Chloride (Nss) 250 mls @ 15 mls/hr IV .[id number] PRN PRN Reason: For Transfusion Stop: 08/09/21 01:23 Insulin Aspart (Insulin Aspart Per Unit) 0 units SC ACHS [facility] Stop: 09/07/21 09:44 Last Admin: 08/08/21 17:08 Dose: Not Given Documented by: Metoprolol Tartrate (Metoprolol Tartrate 25 Mg Tab) 25 mg PO BID [facility] Stop: 09/07/21 09:44 Last Admin: 08/08/21 10:17 Dose: 25 mg Documented by: Miscellaneous (Iv Insulin--Pending Order) 1 ea N/A Q4 [facility] Stop: 09/07/21 15:59 Miscellaneous Information (Piperacill/Tazobac Consult Active) 1 ea N/A UD PRN PRN Reason: Consult Stop: 09/07/21 09:15 Miscellaneous Information (Pharmacy Glycemic Mgmt Consult) 1 ea N/A UD PRN PRN Reason: Consult Stop: 09/07/21 09:15 Mycophenolate Mofetil (Mycophenolate Mofetil 250 Mg Cap) 500 mg PO BID [facility] Stop: 09/07/21 09:44 Last Admin: 08/08/21 10:18 Dose: 500 mg Documented by: Nitroglycerin (Nitroglycerin Sl 0.4 Mg/Tab Tab) 0.4 mg SL UD PRN PRN Reason: Chest Pain Stop: 09/07/21 09:15 Ondansetron HCl (Ondansetron Inj 2 Mg/Ml 2 Ml Vial) 4 mg IV Q6H PRN PRN Reason: Nausea Stop: 09/07/21 09:15 Oxycodone HCl (Oxycodone Hcl Ir 5 Mg Tab (Immediate Release)) 5 mg PO Q4 PRN PRN Reason: pain Stop: 08/22/21 09:15 Last Admin: 08/08/21 17:39 Dose: 5 mg Documented by: Pantoprazole Sodium (Pantoprazole 40 Mg Tab) 40 mg PO [facility]; Protocol Stop: 09/07/21 09:44 Last Admin: 08/08/21 10:17 Dose: 40 mg Documented by: Polyethylene Glycol (Polyethylene (Miralax) 17 Gm Pack) 17 gm PO DAILY PRN PRN Reason: Constipation Stop: 09/07/21 09:15 Rosuvastatin Calcium (Rosuvastatin Calcium 20 Mg Tab) 20 mg PO [facility] Stop: 09/07/21 09:44 Last Admin: 08/08/21 10:17 Dose: 20 mg Documented by: Tacrolimus (Tacrolimus 1 Mg Cap) 2 mg PO [facility] Stop: 09/07/21 09:44 Last Admin: 08/08/21 10:17 Dose: 2 mg Documented by: Tacrolimus (Tacrolimus 1 Mg Cap) 3 mg PO QPM [facility] Stop: 09/07/21 20:59 Vitamin D (Cholecalciferol 1,000 Units 25 Mcg Tab) 1,000 units PO [facility] Stop: 09/07/21 09:44 Last Admin: 08/08/21 10:18 Dose: 1,000 units Documented by: Critical Care Time 40 minutes. 50% of time was spent on direct patient encounter. 50% of time was spent on coordination of care. Patient examined throughout the day to ensure continued medical stability
[2021-08-09] MEDS: PIPERACILLIN/TAZOBACTAM 4.5 GM in DEXTROSE 5% 100 ML IV SCH (01:03)
[2021-08-09 03:53] LABS: Hematocrit (blood only) 26.3 % (42-52); Hemoglobin 8.3 g/dL (14.0-18.0); Mean Corpuscular Hemoglobin 26.7 pg (25-34); Mean Corpuscular Hgb Conc 31.6 g/dL (32-36); Mean Corpuscular Volume 84.6 fL (80-100); Mean Platelet Volume 9.9 fL (7.4-10.4); Nucleated RBC # (auto) 0.21 K/uL (0-0); Nucleated RBC % (auto) 2.8 %; Platelet Count 286 K/uL (130-400); Platelet Estimate Normal (Normal); RDW Standard Deviation 48.5 fL (36.4-46.3); Red Blood Count 3.11 M/uL (4.7-6.1); White Blood Count 7.56 K/uL (4.8-10.8)
[2021-08-09] MEDS: oxyCODONE HCL IR 5 MG TAB (IMMEDIATE RELEASE) PO PRN ×2 (04:14→13:39)
[2021-08-09 06:29] LABS: Basophils # (auto) 0.02 K/uL (0-0.2); Basophils % (auto) 0.3 %; Eosinophils # (auto) 0.31 K/uL (0-0.5); Eosinophils % (auto) 4.6 %; Hemoglobin 8.4 g/dL (14.0-18.0); Immature Granulocytes # (auto) 0.03 K/uL (0.00-0.02); Immature Granulocytes % (auto) 0.4 %; Lymphocytes # (auto) 1.56 K/uL (1.2-3.4); Lymphocytes % (auto) 22.9 %; Mean Corpuscular Hemoglobin 26.9 pg (25-34); Mean Corpuscular Hgb Conc 32.3 g/dL (32-36); Mean Corpuscular Volume 83.3 fL (80-100); Mean Platelet Volume 9.3 fL (7.4-10.4); Monocytes # (auto) 0.83 K/uL (0.11-0.59); Monocytes % (auto) 12.2 %; Neutrophils # (auto) 4.05 K/uL (1.4-6.5); Neutrophils % (auto) 59.6 %; Nucleated RBC # (auto) 0.02 K/uL (0-0); Nucleated RBC % (auto) 0.3 %; Platelet Count 332 K/uL (130-400); RDW Coefficient of Variation 15.9 % (11.5-14.5); RDW Standard Deviation 47.3 fL (36.4-46.3); Red Blood Count 3.12 M/uL (4.7-6.1)
[2021-08-09 06:44] LABS: BUN Creatinine Ratio 14.4 (10-20); Creatinine Clr Calc Pharmacy 125.6 ml/min; Est GFR (African American) 93.2 ml/min; Est GFR (Non-African American) 80.5 ml/min; Magnesium 1.6 mg/dl (1.7-2.4); Potassium 3.8 mmol/L (3.5-5.1)
[2021-08-09 07:31] LABS: INR 1.1 (0.9-1.1); Prothrombin Time 10.7 Seconds (9.0-12.0)
[2021-08-09] MEDS: amLODIPine BESYLATE 5 MG TAB PO SCH (08:52)
[2021-08-09] MEDS: PANTOprazole 40 MG TAB PO SCH (08:52)
[2021-08-09] MEDS: CHOLECALCIFEROL 1,000 UNITS 25 MCG TAB PO SCH (08:52)
[2021-08-09] MEDS: ROSUVASTATIN CALCIUM 20 MG TAB PO SCH (08:52)
[2021-08-09] MEDS: BACLOFEN 20 MG TAB PO SCH ×2 (08:52→20:48)
[2021-08-09] MEDS: MYCOPHENOLATE MOFETIL 250 MG CAP PO SCH ×2 (08:53→20:48)
[2021-08-09] MEDS: METOPROLOL TARTRATE 25 MG TAB PO SCH ×2 (08:53→20:49)
[2021-08-09] MEDS: TACROLIMUS 1 MG CAP PO SCH ×2 (08:53→20:47)
[2021-08-09] MEDS: MAGNESIUM SULFATE / D5W 1 GM/100 ML BAG IV SCH ×2 (08:54→11:09)
[2021-08-09] MEDS ORDERED: INSULIN GLARGINE SOLOSTAR 100 UNITS/ML 3 ML PEN SC ONE (09:00)
[2021-08-09] MEDS ORDERED: INSULIN ASPART 100 UNITS/ML 3 ML PEN SC SCH (09:15)
[2021-08-09] MEDS: INSULIN ASPART PER UNIT SC SCH ×4 (09:36→20:44)
[2021-08-09] MEDS ORDERED: FUROSEMIDE INJ 20 MG/2 ML VIAL IV ONE (10:36)
--- NOTE | 2021-08-09 10:40 | Hospitalist Progress Note ---
Date of Service August 09, 2021 Assessment & Plan Plan: Acute blood loss anemia Right thigh Hematoma -Hb 10.2 from /--> 7.2 --> 5.9 (s/p 2u nits) --> 8.3--> 8.4 this AM -In setting of supratherapeutic INR, active bleed into right thigh -s/p 2 units packed RBC with appropriate resonse -Transfuse to keep Hb >8 with his underlying cardiovascular disease -will give lasix 20mg IV once now Supratherapeutic INR -in setting of poor oral intake recently due to covid 19 infection (recovered) -s/p 10mg IV vitamin K and K centra -INR >10 on admission --> 1.1 History of renal transplant -continue home mycophenolate and tacrolimus -Cr remains stable HHNK diabetic neuropathy -required insulin drip, now basal bolus insulin per pharmacy -tolerating diet HTN -continue amlodipiine PAF on coumadin SSS s/p PPM -continue metoprolol 25mg BID -coumadin on hold for now. Will ask for Cardiology consult to evaluate patient's ongoing risk/benefit of remaining on coumadin. DVT ppx SCDs for now Disposition -From home, lives with his mother. Will ask for PT evaluation Admission and Anticipated Discharge Date Admission Date: August 08, 2021 Subjective Received 2 units packed RBC yesterday Feels better, right leg still painful but he is able to lift it now Denies chest pain, shortness of breath Weaned off insulin drip, tolerated breakfast Physical Exam Physical Exam: no acute distress Respiratory: breathing comfortably on room air, no wheezing/rhonchi/rales Cardiovascular: regular rate and rhythm, no murmurs/rubs/gallops Gastrointestinal (Abdomen): soft, non tender Musculoskeletal: right leg with trace - 1+ edema Right thigh swollen but not tense Right dorsalis pedis pulse is present Skin: bruising on abdomen (site of insulin injections) Bruising on dorsum of right foot Neurologic: awake, alert, spontaneously moving extremities Results & Data Results & Data ([facility]) Vital Signs (Past 12 Hours) Vital Signs Temp Pulse Pulse Resp BP BP Pulse Ox 08/09/21 07:21 36.9 C 73 20 152/67 H 9 L 08/09/21 03:34 37.2 C 68 18 162/76 H 100 08/09/21 03:05 66 24 99 08/09/21 01:04 36.6 C 70 18 134/80 97 08/09/21 00:39 36.6 C 70 18 134/80 97 08/09/21 00:10 68 08/08/21 23:39 36.6 C 68 18 163/75 H 94 08/08/21 22:39 36.8 C 72 18 180/70 H 97 Laboratory Results Short CBC 08/08/21 08/09/21 08/09/21 Range/Units 14:45 02:26 05:33 WBC 7.47 7.56 6.80 (4.8-10.8) K/uL Hgb 5.9 L* 8.3 L 8.4 L (14.0-18.0) g/dL Hct 18.9 L* 26.3 L 26.0 L (42-52) % Plt Count 344 286 332 (130-400) K/uL BMP 08/08/21 08/09/21 14:45 05:33 Sodium 136 139 Potassium 4.1 3.8 Chloride 107 109 H Carbon Dioxide 22 24 BUN 16 15 Creatinine 1.00 1.04 Glucose 177 H 104 H Calcium 8.7 9.0 Medications Administered Current Inpatient Medications Acetaminophen (Acetaminophen 325 Mg Tab) 650 mg PO Q4H PRN PRN Reason: Pain or Fever Stop: 09/07/21 09:15 Amlodipine Besylate (Amlodipine Besylate 5 Mg Tab) 10 mg PO QAM [facility] Stop: 09/07/21 09:44 Last Admin: 08/09/21 08:52 Dose: 10 mg Documented by: Baclofen (Baclofen 20 Mg Tab) 20 mg PO BID [facility] Stop: 09/07/21 09:44 Last Admin: 08/09/21 08:52 Dose: 20 mg Documented by: Glucagon (Glucagon For Inj 1 Mg Vial) 1 mg SQ UD PRN; Protocol PRN Reason: Hypoglycemia Protocol Stop: 09/07/21 02:32 Hydromorphone HCl (Hydromorphone Inj 0.5 Mg/0.5 Ml Syr) 0.5 mg IV Q3H PRN PRN Reason: Pain Stop: 08/22/21 09:15 Sodium Chloride (Nss) 250 mls @ 15 mls/hr IV .[id number] PRN PRN Reason: For Transfusion Stop: 09/07/21 09:15 Magnesium Sulfate/Dextrose (Magnesium Sulfate / D5w) 1 gm in 100 mls @ 50 mls/hr IV Q2H [facility] Stop: 08/09/21 11:59 Last Admin: 08/09/21 08:54 Dose: 50 mls/hr Documented by: Metoprolol Tartrate (Metoprolol Tartrate 25 Mg Tab) 25 mg PO BID [facility] Stop: 09/07/21 09:44 Last Admin: 08/09/21 08:53 Dose: 25 mg Documented by: Miscellaneous Information (Pharmacy Glycemic Mgmt Consult) 1 ea N/A UD PRN PRN Reason: Consult Stop: 09/07/21 09:15 Mycophenolate Mofetil (Mycophenolate Mofetil 250 Mg Cap) 500 mg PO BID [facility] Stop: 09/07/21 09:44 Last Admin: 08/09/21 08:53 Dose: 500 mg Documented by: Nitroglycerin (Nitroglycerin Sl 0.4 Mg/Tab Tab) 0.4 mg SL UD PRN PRN Reason: Chest Pain Stop: 09/07/21 09:15 Ondansetron HCl (Ondansetron Inj 2 Mg/Ml 2 Ml Vial) 4 mg IV Q6H PRN PRN Reason: Nausea Stop: 09/07/21 09:15 Oxycodone HCl (Oxycodone Hcl Ir 5 Mg Tab (Immediate Release)) 5 mg PO Q4 PRN PRN Reason: pain Stop: 08/22/21 09:15 Last Admin: 08/09/21 04:14 Dose: 5 mg Documented by: Pantoprazole Sodium (Pantoprazole 40 Mg Tab) 40 mg PO [facility]; Protocol Stop: 09/07/21 09:44 Last Admin: 08/09/21 08:52 Dose: 40 mg Documented by: Polyethylene Glycol (Polyethylene (Miralax) 17 Gm Pack) 17 gm PO DAILY PRN PRN Reason: Constipation Stop: 09/07/21 09:15 Rosuvastatin Calcium (Rosuvastatin Calcium 20 Mg Tab) 20 mg PO [facility] Stop: 09/07/21 09:44 Last Admin: 08/09/21 08:52 Dose: 20 mg Documented by: Tacrolimus (Tacrolimus 1 Mg Cap) 2 mg PO [facility] Stop: 09/07/21 09:44 Last Admin: 08/09/21 08:53 Dose: 2 mg Documented by: Tacrolimus (Tacrolimus 1 Mg Cap) 3 mg PO QPM [facility] Stop: 09/07/21 20:59 Last Admin: 08/08/21 21:01 Dose: 3 mg Documented by: Vitamin D (Cholecalciferol 1,000 Units 25 Mcg Tab) 1,000 units PO QAM [facility] Stop: 09/07/21 09:44 Last Admin: 08/09/21 08:52 Dose: 1,000 units Documented by:
[2021-08-09] MEDS ORDERED: INSULIN ASPART PER UNIT SC ONE (10:41)
[2021-08-09] MEDS ORDERED: INSULIN ASPART PER UNIT SC SCH (11:30)
[2021-08-09] MEDS: INSULIN REGULAR 250 UNITS in SODIUM CHLORIDE 0.9% 247.5 ML IV SCH (11:35)
--- NOTE | 2021-08-09 13:38 | Pharmacy Report ---
Pharmacy Glycemic Short Note 2 - Date of Service August 09, 2021 - Glycemic Short BSG Results (Last 24 hours): 08/08/21 08/08/21 08/08/21 14:06 14:45 15:01 Glucose 177 H POC Glucose 211 H 193 H 08/08/21 08/08/21 08/08/21 16:00 17:02 18:14 Glucose POC Glucose 194 H 168 H 186 H 08/08/21 08/08/21 08/08/21 19:00 20:07 21:00 Glucose POC Glucose 168 H 157 H 173 H 08/08/21 08/08/21 08/08/21 22:14 23:01 23:50 Glucose POC Glucose 144 H 149 H 143 H 08/09/21 08/09/21 08/09/21 00:56 03:12 04:56 Glucose POC Glucose 140 H 141 H 127 H 08/09/21 08/09/21 08/09/21 05:33 08:12 10:29 Glucose 104 H POC Glucose 89 155 H 08/09/21 11:53 Glucose POC Glucose 159 H OUTPATIENT ANTIDIABETIC REGIMEN: * Lantus 50 units SC HS * Humalog 4 units SC AC + 1 unit per 50 mg/dL/unit above 150 mg/dL * HbA1c: 7.7% (08/08/21) ASSESSMENT: 08/09 * BSGs trended down nicely yesterday, transitioned off insulin infusion this morning * Repeat labs today WNL (serum bicarbonate 24 mmol/L, AG 6) * Home dose of Lantus 50 units SC daily given this morning, will plan to give in afternoon tomorrow, and then ultimately HS afterwards to match outpatient regimen * Weight-based stress of 2 Novolog parameters for now 08/08 * CR is a 56 year old male presented to ED this morning due to altered mental status * Found to have BSG of 329 mg/dL and INR > 10.7 at time or presentation, subsequently received Kcentra for right leg hematoma w/ possible extravasation * Pharmacy consulted for glycemic management upon transfer to floor * Insulin infusion initiated at that time * Labs largely stable, serum bicarbonate is slightly below normal range at 20 mmol/L, anion gap of 11 * Repeat labs this afternoon * Patient currently NPO * Pertinent PMH includes hx of renal transplant, T2DM, morbid obesity, Afib, HTN, and hyperlipidemia PLAN FOR INPATIENT GLYCEMIC CONTROL: * Basal insulin * Lantus 50 units SC daily * Move stepwise back to over next 2 days * Bolus insulin * NovoLog per scale ACHS or Q6hrs while NPO * Goal Range: Low 110 mg/dL - High 140 mg/dL * Correction Factor: 20 mg/dL/unit * Nutritional / Prandial insulin 1 unit per 7 g CHO PLAN FOR DISCHARGE: * HbA1c is slightly above goal of less than 7% * Reasonable to continue outpatient regimen at discharge, will follow inpatient insulin needs and make adjustments if needed * Ensure timely follow-up with outpatient provider for further insulin dose adjustments
--- NOTE | 2021-08-09 18:22 | Cardiology Consultation ---
Date of Consultation August 09, 2021 Assessment & Plan (1) Hematoma: (2) Supratherapeutic INR: (3) Anemia: (4) PAF (paroxysmal atrial fibrillation): (5) Pacemaker: The patient is currently clinically stable. At this point I would leave him off of anticoagulation. He is currently in a sinus rhythm. Consideration regarding long-term anticoagulation includes his ability to remain compliant as well as the need for anticoagulation based on his atrial fibrillation burden. I will check with our device clinic and see if interrogation of his pacemaker over the past 1 to 2 years has shown any significant atrial fibrillation. It might be better to leave him off of anticoagulation based on risk versus benefit. History of Present Illness Attending Physician: Bhumi Aguirre MD History of Present Illness This is a 56-year-old male patient with a complex past medical history including diabetes with end-stage kidney disease and renal transplant. He has a history of paroxysmal atrial fibrillation and tachybradycardia syndrome. He is status post permanent pacemaker. The patient has been seen in our pacemaker clinic in [place] for well over a year. It does not appear that he has had any additional cardiology contact through [facility]. According to the patient he was to see Dr. Edmond but had to cancel his appointment because he had Covid. Recently he has also not been compliant with follow-up with the coag clinic because of Covid. He was admitted with a supratherapeutic INR, profound anemia requiring blood transfusions and a large thigh hematoma. He has been transfused. He is currently off of anticoagulation. We have been asked to see the patient in regard to long-term follow-up. Allergies Allergy/AdvReac Type Severity Reaction Status Date / Time No Known Allergies Allergy Verified 08/08/21 02:50 Home Medications Medication Instructions Recorded Confirmed Type amlodipine 10 mg tablet 10 mg PO QAM 07/29/20 08/08/21 History cholecalciferol (vitamin D3) 25 25 mcg PO QAM 07/29/20 08/08/21 History mcg (1,000 unit) tablet (Vitamin D3) insulin glargine 100 unit/mL (3 60 unit SUBCUT HS 07/29/20 08/10/21 History mL) subcutaneous pen (Lantus Solostar U-100 Insulin) insulin lispro 100 unit/mL 1 sliding scale dose SUBCUT 07/29/20 08/08/21 History subcutaneous solution (Humalog USEASDIRECTD U-100 Insulin) metoprolol tartrate 25 mg tablet 25 mg PO BID 07/29/20 08/08/21 History omeprazole 20 mg tablet,delayed 20 mg PO QAM 07/29/20 08/08/21 History release rosuvastatin 20 mg tablet 20 mg PO QAM 07/29/20 08/08/21 History tacrolimus 1 mg capsule, 2 mg PO QAM 07/29/20 08/08/21 History immediate-release warfarin 2.5 mg tablet 2.5 - 5 mg PO .HOLD 07/29/20 08/08/21 History acetaminophen 325 mg tablet 650 mg PO Q6H PRN 08/05/21 08/08/21 History (Tylenol) baclofen 20 mg tablet 20 mg PO AMPM 08/05/21 08/08/21 History mycophenolate mofetil 250 mg 500 mg PO BID 08/05/21 08/08/21 History capsule oxycodone 5 mg tablet 5 mg PO Q8H PRN #11 tab 08/05/21 08/08/21 Rx tacrolimus 1 mg capsule, 3 mg PO QPM 08/05/21 08/08/21 History immediate-release Patient History Medical History Arthritis Asthma DOES NOT HAVE AN ACTIVE INHALER CURRENLTY AV fistula LEFT ARM Diabetes mellitus, type 2 History of anemia History of renal dialysis PRIOR TO TRANSPLANT Hypertension Pacemaker ? REASON FOR PACEMAKER OR WARFARIN (FOLLOWS WITH [facility]) WILL BRING CARD DAY OF COLONOSCOPY Sleep apnea CPAP Thyroid disease ? OVERACTIVE *DOES NOT TAKE MEDS FOR CURRENLTY Surgical History History of cataract surgery RT/LEFT History of colonoscopy History of tooth extraction Hx of kidney transplant 2015 AT [facility] Family History Mother Family history of diabetes mellitus Father Family history of diabetes mellitus Social History Smoking Status: Never smoker Second Hand Exposure: No; Do You Dip or Chew Tobacco: No; Tobacco Cessation Education Requested by Patient: No Hx Alcohol Use: No Hx Substance Use: No Preferred Language: Romanian Communication Ability: Effective Giving Officer Required: No Beliefs That Will Affect Care: None marital status: Single Current Living Situation: Parent Current Living Situation Comment: lives with his mother Other Information That Helps Us Care for You: No Feels Safe at Home: Yes Safety Concerns: Feels Safe At This Time Assistive Devices: CPAP Assistive Devices Comment: cpap at hs Review of Systems Review of Systems: Review of Systems: See HPI for pertinent positives. All other 10 point review of systems are negative. Physical Exam Physical Exam: General: no acute distress and stated age Head: normocephalic, no masses, lesions, tenderness or abnormalities Eyes: conjunctiva are pink and non-injected, sclera clear Neck: supple, no adenopathy, no bruits, normal jugular venous pulse, no hepatojugular reflux Chest: normal shape and normal respiratory effort Lungs: clear to auscultation and percussion Cardiac Exam: - regular rate & rhythm, no murmurs gallops or rubs - normal S1, normal S2 Pulses: 2(+) throughout Abdomen: abdomen soft, non-tender, no abnormal masses and no hepatosplenomegaly Musculoskeletal: no gait disturbance, no joint inflammation, no deforming arthritis Extremities: no edema and no cyanosis Neuro: grossly normal exam Results & Data ([facility]) Vital Signs (Past 12 Hours) Vital Signs Temp Pulse Pulse Resp BP Pulse Ox Pulse Ox 08/09/21 15:06 73 08/09/21 10:53 37.2 C 77 20 159/68 H 97 08/09/21 09:16 95 08/09/21 08:00 70 08/09/21 07:21 36.9 C 73 20 152/67 H 9 L Laboratory Results Laboratory Results - last 24 hr 08/08/21 08/08/21 08/08/21 04:00 19:00 20:07 WBC RBC Hgb Hct MCV MCH MCHC RDW Std Deviation RDW Coeff of Jaxson Plt Count MPV Immature Gran % (Auto) Neut % (Auto) Lymph % (Auto) [place] % (Auto) Eos % (Auto) Baso % (Auto) Neut # (Auto) Lymph # (Auto) [place] # (Auto) Eos # (Auto) Baso # (Auto) Immature Gran # (Auto) Absolute Nucleated RBC Nucleated RBC % (auto) Platelet Estimate PT INR Sodium Potassium Chloride Carbon Dioxide Anion Gap BUN Creatinine Est Cr Clr Drug Dosing Est GFR ( Amer) Est GFR (Non-Af Amer) BUN/Creatinine Ratio Glucose POC Glucose 168 H 157 H Estimat Average Glucose Hemoglobin A1c Calcium Magnesium Blood Type AB Positive Antibody Screen NEGATIVE Crossmatch See Detail 08/08/21 08/08/21 08/08/21 21:00 22:14 23:01 WBC RBC Hgb Hct MCV MCH MCHC RDW Std Deviation RDW Coeff of Jaxson Plt Count MPV Immature Gran % (Auto) Neut % (Auto) Lymph % (Auto) [place] % (Auto) Eos % (Auto) Baso % (Auto) Neut # (Auto) Lymph # (Auto) [place] # (Auto) Eos # (Auto) Baso # (Auto) Immature Gran # (Auto) Absolute Nucleated RBC Nucleated RBC % (auto) Platelet Estimate PT INR Sodium Potassium Chloride Carbon Dioxide Anion Gap BUN Creatinine Est Cr Clr Drug Dosing Est GFR ( Amer) Est GFR (Non-Af Amer) BUN/Creatinine Ratio Glucose POC Glucose 173 H 144 H 149 H Estimat Average Glucose Hemoglobin A1c Calcium Magnesium Blood Type Antibody Screen Crossmatch 08/08/21 08/09/21 08/09/21 23:50 00:56 02:26 WBC 7.56 RBC 3.11 L Hgb 8.3 L Hct 26.3 L MCV 84.6 MCH 26.7 MCHC 31.6 L RDW Std Deviation 48.5 H RDW Coeff of Jaxson 16.0 H Plt Count 286 MPV 9.9 Immature Gran % (Auto) Neut % (Auto) Lymph % (Auto) [place] % (Auto) Eos % (Auto) Baso % (Auto) Neut # (Auto) Lymph # (Auto) [place] # (Auto) Eos # (Auto) Baso # (Auto) Immature Gran # (Auto) Absolute Nucleated RBC 0.21 H Nucleated RBC % (auto) 2.8 Platelet Estimate Normal PT INR Sodium Potassium Chloride Carbon Dioxide Anion Gap BUN Creatinine Est Cr Clr Drug Dosing Est GFR ( Amer) Est GFR (Non-Af Amer) BUN/Creatinine Ratio Glucose POC Glucose 143 H 140 H Estimat Average Glucose Hemoglobin A1c Calcium Magnesium Blood Type Antibody Screen Crossmatch 08/09/21 08/09/21 08/09/21 03:12 04:56 05:33 WBC RBC Hgb Hct MCV MCH MCHC RDW Std Deviation RDW Coeff of Jaxson Plt Count MPV Immature Gran % (Auto) Neut % (Auto) Lymph % (Auto) [place] % (Auto) Eos % (Auto) Baso % (Auto) Neut # (Auto) Lymph # (Auto) [place] # (Auto) Eos # (Auto) Baso # (Auto) Immature Gran # (Auto) Absolute Nucleated RBC Nucleated RBC % (auto) Platelet Estimate PT INR Sodium 139 Potassium 3.8 Chloride 109 H Carbon Dioxide 24 Anion Gap 6 BUN 15 Creatinine 1.04 Est Cr Clr Drug Dosing 125.6 Est GFR ( Amer) 93.2 Est GFR (Non-Af Amer) 80.5 BUN/Creatinine Ratio 14.4 Glucose 104 H POC Glucose 141 H 127 H Estimat Average Glucose Hemoglobin A1c Calcium 9.0 Magnesium 1.6 L Blood Type Antibody Screen Crossmatch 08/09/21 08/09/21 08/09/21 05:33 05:33 05:33 WBC 6.80 RBC 3.12 L Hgb 8.4 L Hct 26.0 L MCV 83.3 MCH 26.9 MCHC 32.3 RDW Std Deviation 47.3 H RDW Coeff of Jaxson 15.9 H Plt Count 332 MPV 9.3 Immature Gran % (Auto) 0.4 Neut % (Auto) 59.6 Lymph % (Auto) 22.9 [place] % (Auto) 12.2 Eos % (Auto) 4.6 Baso % (Auto) 0.3 Neut # (Auto) 4.05 Lymph # (Auto) 1.56 [place] # (Auto) 0.83 H Eos # (Auto) 0.31 Baso # (Auto) 0.02 Immature Gran # (Auto) 0.03 H Absolute Nucleated RBC 0.02 H Nucleated RBC % (auto) 0.3 Platelet Estimate PT 10.7 INR 1.1 Sodium Potassium Chloride Carbon Dioxide Anion Gap BUN Creatinine Est Cr Clr Drug Dosing Est GFR ( Amer) Est GFR (Non-Af Amer) BUN/Creatinine Ratio Glucose POC Glucose Estimat Average Glucose Pending Hemoglobin A1c Pending Calcium Magnesium Blood Type Antibody Screen Crossmatch 08/09/21 08/09/21 08/09/21 08:12 10:29 11:53 WBC RBC Hgb Hct MCV MCH MCHC RDW Std Deviation RDW Coeff of Jaxson Plt Count MPV Immature Gran % (Auto) Neut % (Auto) Lymph % (Auto) [place] % (Auto) Eos % (Auto) Baso % (Auto) Neut # (Auto) Lymph # (Auto) [place] # (Auto) Eos # (Auto) Baso # (Auto) Immature Gran # (Auto) Absolute Nucleated RBC Nucleated RBC % (auto) Platelet Estimate PT INR Sodium Potassium Chloride Carbon Dioxide Anion Gap BUN Creatinine Est Cr Clr Drug Dosing Est GFR ( Amer) Est GFR (Non-Af Amer) BUN/Creatinine Ratio Glucose POC Glucose 89 155 H 159 H Estimat Average Glucose Hemoglobin A1c Calcium Magnesium Blood Type Antibody Screen Crossmatch 08/09/21 16:21 WBC RBC Hgb Hct MCV MCH MCHC RDW Std Deviation RDW Coeff of Jaxson Plt Count MPV Immature Gran % (Auto) Neut % (Auto) Lymph % (Auto) [place] % (Auto) Eos % (Auto) Baso % (Auto) Neut # (Auto) Lymph # (Auto) [place] # (Auto) Eos # (Auto) Baso # (Auto) Immature Gran # (Auto) Absolute Nucleated RBC Nucleated RBC % (auto) Platelet Estimate PT INR Sodium Potassium Chloride Carbon Dioxide Anion Gap BUN Creatinine Est Cr Clr Drug Dosing Est GFR ( Amer) Est GFR (Non-Af Amer) BUN/Creatinine Ratio Glucose POC Glucose 152 H Estimat Average Glucose Hemoglobin A1c Calcium Magnesium Blood Type Antibody Screen Crossmatch Medications Administered Current Inpatient Medications Acetaminophen (Acetaminophen 325 Mg Tab) 650 mg PO Q4H PRN PRN Reason: Pain or Fever Stop: 09/07/21 09:15 Amlodipine Besylate (Amlodipine Besylate 5 Mg Tab) 10 mg PO QAM [facility] Stop: 09/07/21 09:44 Last Admin: 08/09/21 08:52 Dose: 10 mg Documented by: Baclofen (Baclofen 20 Mg Tab) 20 mg PO BID [facility] Stop: 09/07/21 09:44 Last Admin: 08/09/21 08:52 Dose: 20 mg Documented by: Glucagon (Glucagon For Inj 1 Mg Vial) 1 mg SQ UD PRN; Protocol PRN Reason: Hypoglycemia Protocol Stop: 09/07/21 02:32 Hydromorphone HCl (Hydromorphone Inj 0.5 Mg/0.5 Ml Syr) 0.5 mg IV Q3H PRN PRN Reason: Pain Stop: 08/22/21 09:15 Sodium Chloride (Nss) 250 mls @ 15 mls/hr IV .[id number] PRN PRN Reason: For Transfusion Stop: 09/07/21 09:15 Insulin Aspart (Insulin Aspart Per Unit) 0 units SC ACHS [facility] Stop: 09/08/21 11:29 Last Admin: 08/09/21 17:00 Dose: 7 units Documented by: Insulin Aspart (Insulin Aspart Per Unit) 0 units SC 0000,[id number] [facility] Stop: 08/10/21 04:01 Metoprolol Tartrate (Metoprolol Tartrate 25 Mg Tab) 25 mg PO BID [facility] Stop: 09/07/21 09:44 Last Admin: 08/09/21 08:53 Dose: 25 mg Documented by: Miscellaneous Information (Pharmacy Glycemic Mgmt Consult) 1 ea N/A UD PRN PRN Reason: Consult Stop: 09/07/21 09:15 Mycophenolate Mofetil (Mycophenolate Mofetil 250 Mg Cap) 500 mg PO BID [facility] Stop: 09/07/21 09:44 Last Admin: 08/09/21 08:53 Dose: 500 mg Documented by: Nitroglycerin (Nitroglycerin Sl 0.4 Mg/Tab Tab) 0.4 mg SL UD PRN PRN Reason: Chest Pain Stop: 09/07/21 09:15 Ondansetron HCl (Ondansetron Inj 2 Mg/Ml 2 Ml Vial) 4 mg IV Q6H PRN PRN Reason: Nausea Stop: 09/07/21 09:15 Oxycodone HCl (Oxycodone Hcl Ir 5 Mg Tab (Immediate Release)) 5 mg PO Q4 PRN PRN Reason: pain Stop: 08/22/21 09:15 Last Admin: 08/09/21 13:39 Dose: 5 mg Documented by: Pantoprazole Sodium (Pantoprazole 40 Mg Tab) [facility] Protocol Stop: 09/07/21 09:44 Last Admin: 08/09/21 08:52 Dose: 40 mg Documented by: Polyethylene Glycol (Polyethylene (Miralax) 17 Gm Pack) 17 gm PO DAILY PRN PRN Reason: Constipation Stop: 09/07/21 09:15 Rosuvastatin Calcium (Rosuvastatin Calcium 20 Mg Tab) 20 mg PO [facility] Stop: 09/07/21 09:44 Last Admin: 08/09/21 08:52 Dose: 20 mg Documented by: Tacrolimus (Tacrolimus 1 Mg Cap) 2 mg PO QAM [facility] Stop: 09/07/21 09:44 Last Admin: 08/09/21 08:53 Dose: 2 mg Documented by: Tacrolimus (Tacrolimus 1 Mg Cap) 3 mg PO QPM [facility] Stop: 09/07/21 20:59 Last Admin: 08/08/21 21:01 Dose: 3 mg Documented by: Vitamin D (Cholecalciferol 1,000 Units 25 Mcg Tab) 1,000 units PO QAM [facility] Stop: 09/07/21 09:44 Last Admin: 08/09/21 08:52 Dose: 1,000 units Documented by: (1) Anemia Anemia type: unspecified type Qualified Code(s): D64.9 - Anemia, unspecified
[2021-08-09] MEDS: ALUMINUM/MAGNESIUM/SIMETH (MAALOX MAX) 30 ML UDC PO PRN (21:17)
[2021-08-10] MEDS: INSULIN ASPART PER UNIT SC SCH ×6 (00:13→21:26)
[2021-08-10 07:47] LABS: Hematocrit (blood only) 26.9 % (42-52); Hemoglobin 8.5 g/dL (14.0-18.0); Mean Corpuscular Hemoglobin 26.7 pg (25-34); Mean Corpuscular Hgb Conc 31.6 g/dL (32-36); Mean Corpuscular Volume 84.6 fL (80-100); Mean Platelet Volume 9.1 fL (7.4-10.4); Platelet Count 302 K/uL (130-400); RDW Coefficient of Variation 16.2 % (11.5-14.5); RDW Standard Deviation 49.1 fL (36.4-46.3); Red Blood Count 3.18 M/uL (4.7-6.1); White Blood Count 7.47 K/uL (4.8-10.8)
[2021-08-10 07:53] LABS: Estimated Average Glucose 154 mg/dl
[2021-08-10 08:00] LABS: INR 1.5 (0.9-1.1)
[2021-08-10] MEDS: amLODIPine BESYLATE 5 MG TAB PO SCH (08:03)
[2021-08-10] MEDS: BACLOFEN 20 MG TAB PO SCH ×3 (08:03→21:25)
[2021-08-10] MEDS: CHOLECALCIFEROL 1,000 UNITS 25 MCG TAB PO SCH (08:04)
[2021-08-10] MEDS: METOPROLOL TARTRATE 25 MG TAB PO SCH ×2 (08:04→22:08)
[2021-08-10] MEDS: MYCOPHENOLATE MOFETIL 250 MG CAP PO SCH ×2 (08:04→22:08)
[2021-08-10] MEDS: PANTOprazole 40 MG TAB PO SCH (08:05)
[2021-08-10] MEDS: ROSUVASTATIN CALCIUM 20 MG TAB PO SCH (08:06)
[2021-08-10] MEDS: TACROLIMUS 1 MG CAP PO SCH ×2 (08:06→22:11)
[2021-08-10 08:11] LABS: BUN Creatinine Ratio 14.2 (10-20); Calcium 8.7 mg/dl (8.5-10.1); Creatinine Clr Calc Pharmacy 123.1 ml/min; Est GFR (African American) 91.1 ml/min; Est GFR (Non-African American) 78.6 ml/min; Magnesium 1.7 mg/dl (1.7-2.4); Potassium 4.2 mmol/L (3.5-5.1)
--- NOTE | 2021-08-10 08:42 | Cardiology Progress Note ---
Date of Service August 10, 2021 Assessment & Plan (1) Hematoma: Plan: Right leg hematoma reducing in size. Per ultrasound this morning- Slight decrease in size in the large intramuscular hematoma within the right anterior thigh currently measuring 14.4 x 2.8 x 5.3 cm (2) Supratherapeutic INR: Plan: INR 1.5 this morning (3) Anemia: Plan: Hemoglobin stable after receiving 2 units of PRBCs, 8.5. (4) PAF (paroxysmal atrial fibrillation): Plan: Hx of PAF, anticoagulated on Coumadin- currently AC is on hold. SR 70s on monitor over night. No evidence of Afib last night or the day prior. 1. Device interrogation today- patient has a [facility] [facility] Device. Saw 3% afib burden 2. High RV pacing burden on outpatient device check- repeat resting echo to reassess LV systolic function as well as valvular structure. 3. Known Pulmonary HTN- has known severe SUJIT and on CPAP 4. Continue to hold Coumadin. Future considerations for DOAC (no known integrations between [employer] for tacrolimus)- however, we would appreciate nephrology input on this matter prior to transitioning to be sure this is a safe option post transplant. (5) Pacemaker: Plan: Plan as above. Plan: The patient is currently clinically stable. Case discussed with Dr. Jensen Patient lives in [place] and would appreciate at discharge if we set him up with an appt in our [place] cardio outreach. Admission and Anticipated Discharge Date Admission Date: August 08, 2021 Supervising Physician Co-Signing Physician Notes I have discussed the case with Ms. Naranjo and reviewed the medical record. I have seen and examined the patient. I agree with the plan as outlined above. Subjective 56 year old male with history of PAF with TBS s/p ppm- has not had device interrogated since 03/2021 as an outpatient. Upon entrance into the room patient was resting in bed. Alert and oriented. Worked with PT just prior- noting significant difficulty standing and ambulating due to leg pain and shortness of breath. No chest pain. No palpitations, dizziness, syncope or near syncope. No orthopnea, PND. Right leg swollen compared to the Left. Lower extremity ultrasound should a slight in hematoma. Device interrogated at bedside showing a 3% atrial fib burden. No Afib seen on telemetry over the last 2 days. Tele: SR 70s. Labs: Hemoglobin: 8.0>>7.3>>5.9 (2 units given)>>8.3>>8.4>>8.5 (2/7) INR 1.5 (2/7) Scr 1.06 (2/) Review of Systems Review of Systems: All systems reviewed & are unremarkable except as noted in HPI & below Physical Exam Physical Exam: General: no acute distress and stated age Head: normocephalic, no masses, lesions, tenderness or abnormalities Eyes: conjunctiva are pink and non-injected, sclera clear Neck: supple, no adenopathy, no bruits, normal jugular venous pulse, no hepatojugular reflux Chest: normal shape and normal respiratory effort Lungs: clear to auscultation and percussion Cardiac Exam: - regular rate & rhythm, no murmurs gallops or rubs - normal S1, normal S2 Pulses: 2(+) throughout Abdomen: abdomen soft, non-tender, no abnormal masses and no hepatosplenomegaly Musculoskeletal: no gait disturbance, no joint inflammation, no deforming arthritis Extremities: right leg swollen, no edema of left leg. Bruising around the right ankle. Bruising on left bicep Neuro: grossly normal exam Results & Data ([facility]) Vital Signs (Past 12 Hours) Vital Signs Temp Pulse Pulse Resp BP Pulse Ox 08/10/21 07:49 24 08/10/21 07:14 37 C 75 157/70 H 97 08/10/21 04:27 120/78 08/10/21 03:10 70 16 94 08/09/21 23:57 37.5 C 71 14 150/68 H 93 08/09/21 23:25 73 08/09/21 22:15 70 22 97 Laboratory Results 08/10/21 08/10/21 08/10/21 Range/Units 07:19 07:18 07:18 WBC 7.47 (4.8-10.8) K/uL RBC 3.18 L (4.7-6.1) M/uL Hgb 8.5 L (14.0-18.0) g/dL Hct 26.9 L (42-52) % MCV 84.6 (80-100) fL MCH 26.7 (25-34) pg MCHC 31.6 L (32-36) g/dL RDW Std Deviation 49.1 H (36.4-46.3) fL RDW Coeff of Jaxson 16.2 H (11.5-14.5) % Plt Count 302 (130-400) K/uL MPV 9.1 (7.4-10.4) fL PT 15.0 H (9.0-12.0) Seconds INR 1.5 H (0.9-1.1) Sodium (136-145) mmol/L Potassium (3.5-5.1) mmol/L Chloride (98-107) mmol/L Carbon Dioxide (21-32) mmol/L Anion Gap (3-11) BUN (6-23) mg/dl Creatinine (0.6-1.4) mg/dl Est Cr Clr Drug Dosing ml/min Est GFR ( Amer) ml/min Est GFR (Non-Af Amer) ml/min BUN/Creatinine Ratio (10-20) Glucose (70-99(Fasting)) mg/dl POC Glucose 208 H (70-99) mg/dl Estimat Average Glucose mg/dl Hemoglobin A1c (4.5-5.6) % Calcium (8.5-10.1) mg/dl Magnesium (1.7-2.4) mg/dl 08/10/21 08/10/21 08/09/21 Range/Units 07:18 03:29 23:30 WBC (4.8-10.8) K/uL RBC (4.7-6.1) M/uL Hgb (14.0-18.0) g/dL Hct (42-52) % MCV (80-100) fL MCH (25-34) pg MCHC (32-36) g/dL RDW Std Deviation (36.4-46.3) fL RDW Coeff of Jaxson (11.5-14.5) % Plt Count (130-400) K/uL MPV (7.4-10.4) fL PT (9.0-12.0) Seconds INR (0.9-1.1) Sodium 136 (136-145) mmol/L Potassium 4.2 (3.5-5.1) mmol/L Chloride 105 (98-107) mmol/L Carbon Dioxide 25 (21-32) mmol/L Anion Gap 6 (3-11) BUN 15 (6-23) mg/dl Creatinine 1.06 (0.6-1.4) mg/dl Est Cr Clr Drug Dosing 123.1 ml/min Est GFR ( Amer) 91.1 ml/min Est GFR (Non-Af Amer) 78.6 ml/min BUN/Creatinine Ratio 14.2 (10-20) Glucose 198 H (70-99(Fasting)) mg/dl POC Glucose 199 H 188 H (70-99) mg/dl Estimat Average Glucose mg/dl Hemoglobin A1c (4.5-5.6) % Calcium 8.7 (8.5-10.1) mg/dl Magnesium 1.7 (1.7-2.4) mg/dl 08/09/21 08/09/21 08/09/21 Range/Units 19:59 16:21 11:53 WBC (4.8-10.8) K/uL RBC (4.7-6.1) M/uL Hgb (14.0-18.0) g/dL Hct (42-52) % MCV (80-100) fL MCH (25-34) pg MCHC (32-36) g/dL RDW Std Deviation (36.4-46.3) fL RDW Coeff of Jaxson (11.5-14.5) % Plt Count (130-400) K/uL MPV (7.4-10.4) fL PT (9.0-12.0) Seconds INR (0.9-1.1) Sodium (136-145) mmol/L Potassium (3.5-5.1) mmol/L Chloride (98-107) mmol/L Carbon Dioxide (21-32) mmol/L Anion Gap (3-11) BUN (6-23) mg/dl Creatinine (0.6-1.4) mg/dl Est Cr Clr Drug Dosing ml/min Est GFR ( Amer) ml/min Est GFR (Non-Af Amer) ml/min BUN/Creatinine Ratio (10-20) Glucose (70-99(Fasting)) mg/dl POC Glucose 174 H 152 H 159 H (70-99) mg/dl Estimat Average Glucose mg/dl Hemoglobin A1c (4.5-5.6) % Calcium (8.5-10.1) mg/dl Magnesium (1.7-2.4) mg/dl 08/09/21 08/09/21 Range/Units 10:29 05:33 WBC (4.8-10.8) K/uL RBC (4.7-6.1) M/uL Hgb (14.0-18.0) g/dL Hct (42-52) % MCV (80-100) fL MCH (25-34) pg MCHC (32-36) g/dL RDW Std Deviation (36.4-46.3) fL RDW Coeff of Jaxson (11.5-14.5) % Plt Count (130-400) K/uL MPV (7.4-10.4) fL PT (9.0-12.0) Seconds INR (0.9-1.1) Sodium (136-145) mmol/L Potassium (3.5-5.1) mmol/L Chloride (98-107) mmol/L Carbon Dioxide (21-32) mmol/L Anion Gap (3-11) BUN (6-23) mg/dl Creatinine (0.6-1.4) mg/dl Est Cr Clr Drug Dosing ml/min Est GFR ( Amer) ml/min Est GFR (Non-Af Amer) ml/min BUN/Creatinine Ratio (10-20) Glucose (70-99(Fasting)) mg/dl POC Glucose 155 H (70-99) mg/dl Estimat Average Glucose 154 mg/dl Hemoglobin A1c 7.0 H (4.5-5.6) % Calcium (8.5-10.1) mg/dl Magnesium (1.7-2.4) mg/dl Diagnostic Findings Echo 04/2017 The examination is limited quality but adequate for evaluation of the referral indication. The qualitative LV ejection fraction is 55-59% (normal). No LV segmental wall motion abnormalities. The right ventricular cavity size is enlarged (basal dimension > 4.2 cm RV apical 4 chamber view). The right ventricular systolic function is qualitatively normal. Moderate pulmonary hypertension is present. (1) Anemia Anemia type: unspecified type Qualified Code(s): D64.9 - Anemia, unspecified
--- NOTE | 2021-08-10 09:30 | Ultrasound Report ---
US extremity nonvascular ltd CLINICAL HISTORY: please assess right thigh hematoma size.Right thigh pain. COMPARISON STUDY: Right femur CT 08/08/2021. FINDINGS: Real-time sonographic imaging of the right anterior thigh was performed with herbicide service sales representative heterogeneous intramuscular and basilar collection anterior thigh. This measures up to 14.4 x 2.6 x 5.3 cm. This is slightly decreased in size compared to the prior study when it measured 23 x 6 x 8 cm. IMPRESSION: Slight decrease in size in the large intramuscular hematoma within the right anterior thigh currently measuring 14.4 x 2.8 x 5.3 cm. Follow-up recommended to ensure complete resolution. ACT 112: Negative or not required by law. Electronically signed by: Salinas Mead M.D. 08/10/2021 9:28 AM [facility]
[2021-08-10] MEDS ORDERED: INSULIN GLARGINE SOLOSTAR 100 UNITS/ML 3 ML PEN SC ONE (11:30)
--- NOTE | 2021-08-10 12:37 | Pharmacy Report ---
Pharmacy Glycemic Short Note 2 - Date of Service August 10, 2021 - Glycemic Short BSG Results (Last 24 hours): 08/09/21 08/09/21 08/09/21 16:21 19:59 23:30 Glucose POC Glucose 152 H 174 H 188 H 08/10/21 08/10/21 08/10/21 03:29 07:18 07:19 Glucose 198 H POC Glucose 199 H 208 H 08/10/21 11:20 Glucose POC Glucose 282 H OUTPATIENT ANTIDIABETIC REGIMEN: * Lantus 50 units SC HS * Humalog 4 units SC AC + 1 unit per 50 mg/dL/unit above 150 mg/dL * HbA1c: 7.7% (08/08/21) ASSESSMENT: 08/10 * BSGs improved yesterday, ranging 152-188 mg/dL, fasting BSG of 208 mg/dL this morning * Plan is to step Lantus back to HS, will give increased dose at lunchtime today * Lunch BSG of 282 mg/dL, will further tighten Novolog parameters * No change to stressors 08/09 * BSGs trended down nicely yesterday, transitioned off insulin infusion this morning * Repeat labs today WNL (serum bicarbonate 24 mmol/L, AG 6) * Home dose of Lantus 50 units SC daily given this morning, will plan to give in afternoon tomorrow, and then ultimately HS afterwards to match outpatient regimen * Weight-based stress of 2 Novolog parameters for now 08/08 * CR is a 56 year old male presented to ED this morning due to altered mental status * Found to have BSG of 329 mg/dL and INR > 10.7 at time or presentation, subsequently received Kcentra for right leg hematoma w/ possible extravasation * Pharmacy consulted for glycemic management upon transfer to floor * Insulin infusion initiated at that time * Labs largely stable, serum bicarbonate is slightly below normal range at 20 mmol/L, anion gap of 11 * Repeat labs this afternoon * Patient currently NPO * Pertinent PMH includes hx of renal transplant, T2DM, morbid obesity, Afib, HTN, and hyperlipidemia PLAN FOR INPATIENT GLYCEMIC CONTROL: * Basal insulin - increase * Lantus 55 units SC x 1 today at lunchtime * Plan for evening Lantus tomorrow * Bolus insulin - tighten * NovoLog per scale ACHS or Q6hrs while NPO * Goal Range: Low 110 mg/dL - High 140 mg/dL * Correction Factor: 15 mg/dL/unit * Nutritional / Prandial insulin 1 unit per 5 g CHO PLAN FOR DISCHARGE: * HbA1c is slightly above goal of less than 7% * Reasonable to continue outpatient regimen at discharge, will follow inpatient insulin needs and make adjustments if needed * Ensure timely follow-up with outpatient provider for further insulin dose adjustments
--- NOTE | 2021-08-10 14:23 | Hospitalist Progress Note ---
Date of Service August 10, 2021 Assessment & Plan Plan: Acute blood loss anemia Right thigh Hematoma -Hb 10.2 from 2/2--> 7.2 --> 5.9 (s/p 2u nits) --> 8.3-->8.4 --> 8.5 this AM -In setting of supratherapeutic INR, active bleed into right thigh -s/p 2 units packed RBC with appropriate response -Transfuse to keep Hb >8 with his underlying cardiovascular disease H/H has remained stable Right thigh ultrasound today shows decrease in size of hematoma Supratherapeutic INR -in setting of poor oral intake recently due to covid 19 infection (recovered) -s/p 10mg IV vitamin K and K centra -INR >10 on admission --> 1.1 History of renal transplant -continue home mycophenolate and tacrolimus -Cr remains stable HHNK diabetic neuropathy -required insulin drip, now basal bolus insulin per pharmacy -tolerating diet HTN -continue amlodipiine PAF on coumadin SSS s/p PPM -continue metoprolol 25mg BID -coumadin on hold for now. 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 TTE ordered. Nephrology consulted to determine if patient is a candidate for NOAC with his kidney transplant and medications. DVT ppx SCDs for now Disposition -From home, lives with his mother. Will ask for PT evaluation Possible discharge tomorrow pending clinical course Admission and Anticipated Discharge Date Admission Date: August 08, 2021 Anticipated date of discharge: 08/11/21 Subjective Feels better. Less pain, less right leg swelling. Tolerating diet Physical Exam Physical Exam: No acute distress, non toxic, pleasant and comfortable Respiratory: breathing comfortably on room air, no wheezing/rhonchi/rales Cardiovascular: regular rate and rhythm, no murmurs/rubs/gallops Gastrointestinal (Abdomen): soft, non tender Musculoskeletal: trace right leg swelling, unchanged Skin: bruising left arm, right foot Neurologic: awake, alert, spontaneously moving extremities Results & Data Results & Data ([facility]) Vital Signs (Past 12 Hours) Vital Signs Temp Pulse Pulse Resp BP Pulse Ox 08/10/21 07:49 24 08/10/21 07:14 37 C 75 157/70 H 97 08/10/21 04:27 120/78 08/10/21 03:10 70 16 94 Laboratory Results Short CBC 08/10/21 Range/Units 07:18 WBC 7.47 (4.8-10.8) K/uL Hgb 8.5 L (14.0-18.0) g/dL Hct 26.9 L (42-52) % Plt Count 302 (130-400) K/uL BMP 08/10/21 07:18 Sodium 136 Potassium 4.2 Chloride 105 Carbon Dioxide 25 BUN 15 Creatinine 1.06 Glucose 198 H Calcium 8.7 Medications Administered Current Inpatient Medications Acetaminophen (Acetaminophen 325 Mg Tab) 650 mg PO Q4H PRN PRN Reason: Pain or Fever Stop: 09/07/21 09:15 Last Admin: 08/09/21 20:48 Dose: 650 mg Documented by: Al Hydrox/Mg Hydrox/Simethicone (Aluminum/Magnesium/Simeth (Maalox Max) 30 Ml Udc) 30 ml PO Q6H PRN PRN Reason: Heartburn Stop: 09/08/21 20:57 Last Admin: 08/09/21 21:17 Dose: 30 ml Documented by: Amlodipine Besylate (Amlodipine Besylate 5 Mg Tab) 10 mg PO QAM JOSE ENRIQUE Stop: 09/07/21 09:44 Last Admin: 08/10/21 08:03 Dose: 10 mg Documented by: Baclofen (Baclofen 20 Mg Tab) 20 mg PO BID [facility] Stop: 09/07/21 09:44 Last Admin: 08/10/21 08:15 Dose: Not Given Documented by: Glucagon (Glucagon For Inj 1 Mg Vial) 1 mg SQ UD PRN; Protocol PRN Reason: Hypoglycemia Protocol Stop: 09/07/21 02:32 Hydromorphone HCl (Hydromorphone Inj 0.5 Mg/0.5 Ml Syr) 0.5 mg IV Q3H PRN PRN Reason: Pain Stop: 08/22/21 09:15 Sodium Chloride (Nss) 250 mls @ 15 mls/hr IV .[id number] PRN PRN Reason: For Transfusion Stop: 09/07/21 09:15 Insulin Aspart (Insulin Aspart Per Unit) 0 units SC ACHS JOSE ENRIQUE Stop: 09/08/21 11:29 Last Admin: 08/10/21 12:27 Dose: 17 units Documented by: Metoprolol Tartrate (Metoprolol Tartrate 25 Mg Tab) 25 mg PO BID JOSE ENRIQUE Stop: 09/07/21 09:44 Last Admin: 08/10/21 08:04 Dose: 25 mg Documented by: Miscellaneous Information (Pharmacy Glycemic Mgmt Consult) 1 ea N/A UD PRN PRN Reason: Consult Stop: 09/07/21 09:15 Mycophenolate Mofetil (Mycophenolate Mofetil 250 Mg Cap) 500 mg PO BID [facility] Stop: 09/07/21 09:44 Last Admin: 08/10/21 08:04 Dose: 500 mg Documented by: Nitroglycerin (Nitroglycerin Sl 0.4 Mg/Tab Tab) 0.4 mg SL UD PRN PRN Reason: Chest Pain Stop: 09/07/21 09:15 Ondansetron HCl (Ondansetron Inj 2 Mg/Ml 2 Ml Vial) 4 mg IV Q6H PRN PRN Reason: Nausea Stop: 09/07/21 09:15 Oxycodone HCl (Oxycodone Hcl Ir 5 Mg Tab (Immediate Release)) 5 mg PO Q4 PRN PRN Reason: pain Stop: 08/22/21 09:15 Last Admin: 08/09/21 13:39 Dose: 5 mg Documented by: Pantoprazole Sodium (Pantoprazole 40 Mg Tab) [facility] Protocol Stop: 09/07/21 09:44 Last Admin: 08/10/21 08:05 Dose: 40 mg Documented by: Polyethylene Glycol (Polyethylene (Miralax) 17 Gm Pack) 17 gm PO DAILY PRN PRN Reason: Constipation Stop: 09/07/21 09:15 Rosuvastatin Calcium (Rosuvastatin Calcium 20 Mg Tab) 20 mg PO QAM [facility] Stop: 09/07/21 09:44 Last Admin: 08/10/21 08:06 Dose: 20 mg Documented by: Tacrolimus (Tacrolimus 1 Mg Cap) 2 mg PO QAM [facility] Stop: 09/07/21 09:44 Last Admin: 08/10/21 08:06 Dose: 2 mg Documented by: Tacrolimus (Tacrolimus 1 Mg Cap) 3 mg PO QPM [facility] Stop: 09/07/21 20:59 Last Admin: 08/09/21 20:47 Dose: 3 mg Documented by: Vitamin D (Cholecalciferol 1,000 Units 25 Mcg Tab) 1,000 units PO QAM [facility] Stop: 09/07/21 09:44 Last Admin: 08/10/21 08:04 Dose: 1,000 units Documented by:
[2021-08-10] MEDS: ALUMINUM/MAGNESIUM/SIMETH (MAALOX MAX) 30 ML UDC PO PRN (17:55)
[2021-08-10] MEDS ORDERED: bisacodyL 10 MG SUPP PR STA (20:14)
[2021-08-10] MEDS: DOCUSATE SODIUM/SENNA 50/8.6MG TAB PO SCH (21:25)
[2021-08-10] MEDS: FAMOTIDINE 20 MG TAB PO SCH (21:25)
[2021-08-11] MEDS ORDERED: INSULIN ASPART PER UNIT SC SCH (02:00)
[2021-08-11 06:38] LABS: Hematocrit (blood only) 27.6 % (42-52); Hemoglobin 8.6 g/dL (14.0-18.0); Mean Corpuscular Hemoglobin 26.4 pg (25-34); Mean Corpuscular Hgb Conc 31.2 g/dL (32-36); Mean Corpuscular Volume 84.7 fL (80-100); Mean Platelet Volume 9.5 fL (7.4-10.4); Platelet Count 300 K/uL (130-400); RDW Coefficient of Variation 16.5 % (11.5-14.5); RDW Standard Deviation 49.3 fL (36.4-46.3); Red Blood Count 3.26 M/uL (4.7-6.1); White Blood Count 5.66 K/uL (4.8-10.8)
[2021-08-11 06:55] LABS: INR 1.5 (0.9-1.1); Prothrombin Time 15.1 Seconds (9.0-12.0)
[2021-08-11 07:10] LABS: BUN Creatinine Ratio 16.7 (10-20); Calcium 8.9 mg/dl (8.5-10.1); Creatinine Clr Calc Pharmacy 136.8 ml/min; Est GFR (African American) 102.7 ml/min; Est GFR (Non-African American) 88.6 ml/min; Potassium 4.2 mmol/L (3.5-5.1)
--- NOTE | 2021-08-11 07:37 | Cardiology Progress Note ---
Date of Service August 11, 2021 Assessment & Plan (1) Hematoma: Plan: Right leg hematoma reducing in size. Per ultrasound 08/10- Slight decrease in size in the large intramuscular hematoma within the right anterior thigh currently measuring 14.4 x 2.8 x 5.3 cm (2) Supratherapeutic INR: Plan: INR remains at 1.5 this morning (3) Anemia: Plan: Hemoglobin stable after receiving 2 units of PRBCs, 8.6 today (4) PAF (paroxysmal atrial fibrillation): Plan: Hx of PAF, anticoagulated on Coumadin- currently AC is on hold. 3% afib burden on [facility] Yo[facility] device interrogation 08/10. Echo stable. SR 70s on monitor over night. No evidence of Afib during hospital stay so far. 1. Continue to hold Coumadin. Future considerations for DOAC (no known integrations between CellCept for tacrolimus)- however, we would appreciate nephrology input on this matter prior to transitioning. Spoke with Dr. Reyes- no contraindications to transitioning from Coumadin to Eliquis if necessary in the future. Patient aware and in agreement. (5) Pacemaker: Plan: Plan as above. (6) Nausea and vomiting: Plan: New onset nausea and vomiting x2. Will defer to hospitalist team regarding this. (7) Low urine output: Plan: Per nursing- patient having low urine output. Renal function stable. Hx of renal transplant. Nephrology consulted. Plan: The patient is currently clinically stable. Case discussed with Dr. Jensen Patient lives in [place] and would appreciate at discharge if we set him up with an appt in our [place] cardio outreach. Admission and Anticipated Discharge Date Admission Date: August 08, 2021 Supervising Physician Co-Signing Physician Notes I have discussed the case with Ms. Naranjo and reviewed the medical record. I have seen and examined the patient. I agree with the plan as outlined above. Subjective 56 year old male with history of PAF with TBS s/p ppm as well as renal transplant, admitted due to significant anemia (admission hemoglobin of 5.9 s/p 2 units of PRBCs), Supratherapeutic INR (10), and right thigh hematoma. Echo revealed: LVEF 60-65%, Mild concentric LVH, normal RV systolic function with normal sized LA and RA. No significant valvular abnormalities. Device interrogated at bedside yesterday showing a 3% atrial fib burden. No Afib seen on telemetry during this admission Tele: SR 70s Upon entrance into the room patient was sitting up in bed feeling ill. Notes that over night and this morning he has not been able to keep any food for fluids down. Patient vomited prior to exam this am. He remains alert and oriented. No chest pain or shortness of breath. No palpitations, dizziness, syncope or near syncope. No orthopnea, PND. Right leg swollen compared to the Left. Patient feeling fatigued and worn out. Per nursing, he has not been v oiding much. Nephro consulted. Labs: Hemoglobin: 8.0>>7.3>>5.9 (2 units given)>>8.3>>8.4>>8.5>> 8.6 (08/11) INR 1.5 (08/11) Scr 0.96 (08/11) Review of Systems Review of Systems: All systems reviewed & are unremarkable except as noted in HPI & below Physical Exam Physical Exam: General: no acute distress and stated age Head: normocephalic, no masses, lesions, tenderness or abnormalities Eyes: conjunctiva are pink and non-injected, sclera clear Neck: supple, no adenopathy, no bruits, normal jugular venous pulse, no hepatojugular reflux Chest: normal shape and normal respiratory effort Lungs: clear to auscultation and percussion Cardiac Exam: - regular rate & rhythm, no murmurs gallops or rubs - normal S1, normal S2 Pulses: 2(+) throughout Abdomen: abdomen soft, non-tender, no abnormal masses and no hepatosplenomegaly Musculoskeletal: no gait disturbance, no joint inflammation, no deforming arthritis Extremities: right leg swollen, no edema of left leg. Bruising around the right ankle. Bruising on left bicep Neuro: grossly normal exam Results & Data ([facility]) Vital Signs (Past 12 Hours) Vital Signs Temp Pulse Pulse Resp BP Pulse Ox 08/11/21 04:51 36.9 C 69 22 143/63 H 100 08/11/21 03:30 67 16 90 08/10/21 23:48 36.3 C L 70 16 130/73 94 08/10/21 23:01 73 08/10/21 20:15 37.1 C 73 18 168/65 H 91 Laboratory Results 08/11/21 08/11/2122 Range/Units 07:09 06:00 06:00 WBC 5.66 (4.8-10.8) K/uL RBC 3.26 L (4.7-6.1) M/uL Hgb 8.6 L (14.0-18.0) g/dL Hct 27.6 L (42-52) % MCV 84.7 (80-100) fL MCH 26.4 (25-34) pg MCHC 31.2 L (32-36) g/dL RDW Std Deviation 49.3 H (36.4-46.3) fL RDW Coeff of Jaxson 16.5 H (11.5-14.5) % Plt Count 300 (130-400) K/uL MPV 9.5 (7.4-10.4) fL PT 15.1 H (9.0-12.0) Seconds INR 1.5 H (0.9-1.1) Sodium (136-145) mmol/L Potassium (3.5-5.1) mmol/L Chloride (98-107) mmol/L Carbon Dioxide (21-32) mmol/L Anion Gap (3-11) BUN (6-23) mg/dl Creatinine (0.6-1.4) mg/dl Est Cr Clr Drug Dosing ml/min Est GFR ( Amer) ml/min Est GFR (Non-Af Amer) ml/min BUN/Creatinine Ratio (10-20) Glucose (70-99(Fasting)) mg/dl POC Glucose 158 H (70-99) mg/dl Estimat Average Glucose mg/dl Hemoglobin A1c (4.5-5.6) % Calcium (8.5-10.1) mg/dl Magnesium (1.7-2.4) mg/dl 08/11/21 08/11/21 08/10/21 Range/Units 06:00 01:46 20:13 WBC (4.8-10.8) K/uL RBC (4.7-6.1) M/uL Hgb (14.0-18.0) g/dL Hct (42-52) % MCV (80-100) fL MCH (25-34) pg MCHC (32-36) g/dL RDW Std Deviation (36.4-46.3) fL RDW Coeff of Jaxson (11.5-14.5) % Plt Count (130-400) K/uL MPV (7.4-10.4) fL PT (9.0-12.0) Seconds INR (0.9-1.1) Sodium 138 (136-145) mmol/L Potassium 4.2 (3.5-5.1) mmol/L Chloride 106 (98-107) mmol/L Carbon Dioxide 26 (21-32) mmol/L Anion Gap 6 (3-11) BUN 16 (6-23) mg/dl Creatinine 0.96 (0.6-1.4) mg/dl Est Cr Clr Drug Dosing 136.8 ml/min Est GFR ( Amer) 102.7 ml/min Est GFR (Non-Af Amer) 88.6 ml/min BUN/Creatinine Ratio 16.7 (10-20) Glucose 139 H (70-99(Fasting)) mg/dl POC Glucose 165 H 188 H (70-99) mg/dl Estimat Average Glucose mg/dl Hemoglobin A1c (4.5-5.6) % Calcium 8.9 (8.5-10.1) mg/dl Magnesium (1.7-2.4) mg/dl 08/10/21 08/10/21 08/10/21 Range/Units 16:06 11:20 07:18 WBC (4.8-10.8) K/uL RBC (4.7-6.1) M/uL Hgb (14.0-18.0) g/dL Hct (42-52) % MCV (80-100) fL MCH (25-34) pg MCHC (32-36) g/dL RDW Std Deviation (36.4-46.3) fL RDW Coeff of Jaxson (11.5-14.5) % Plt Count (130-400) K/uL MPV (7.4-10.4) fL PT 15.0 H (9.0-12.0) Seconds INR 1.5 H (0.9-1.1) Sodium (136-145) mmol/L Potassium (3.5-5.1) mmol/L Chloride (98-107) mmol/L Carbon Dioxide (21-32) mmol/L Anion Gap (3-11) BUN (6-23) mg/dl Creatinine (0.6-1.4) mg/dl Est Cr Clr Drug Dosing ml/min Est GFR ( Amer) ml/min Est GFR (Non-Af Amer) ml/min BUN/Creatinine Ratio (10-20) Glucose (70-99(Fasting)) mg/dl POC Glucose 195 H 282 H (70-99) mg/dl Estimat Average Glucose mg/dl Hemoglobin A1c (4.5-5.6) % Calcium (8.5-10.1) mg/dl Magnesium (1.7-2.4) mg/dl 08/10/21 08/10/21 08/09/21 Range/Units 07:18 07:18 05:33 WBC 7.47 (4.8-10.8) K/uL RBC 3.18 L (4.7-6.1) M/uL Hgb 8.5 L (14.0-18.0) g/dL Hct 26.9 L (42-52) % MCV 84.6 (80-100) fL MCH 26.7 (25-34) pg MCHC 31.6 L (32-36) g/dL RDW Std Deviation 49.1 H (36.4-46.3) fL RDW Coeff of Jaxson 16.2 H (11.5-14.5) % Plt Count 302 (130-400) K/uL MPV 9.1 (7.4-10.4) fL PT (9.0-12.0) Seconds INR (0.9-1.1) Sodium 136 (136-145) mmol/L Potassium 4.2 (3.5-5.1) mmol/L Chloride 105 (98-107) mmol/L Carbon Dioxide 25 (21-32) mmol/L Anion Gap 6 (3-11) BUN 15 (6-23) mg/dl Creatinine 1.06 (0.6-1.4) mg/dl Est Cr Clr Drug Dosing 123.1 ml/min Est GFR ( Amer) 91.1 ml/min Est GFR (Non-Af Amer) 78.6 ml/min BUN/Creatinine Ratio 14.2 (10-20) Glucose 198 H (70-99(Fasting)) mg/dl POC Glucose (70-99) mg/dl Estimat Average Glucose 154 mg/dl Hemoglobin A1c 7.0 H (4.5-5.6) % Calcium 8.7 (8.5-10.1) mg/dl Magnesium 1.7 (1.7-2.4) mg/dl Diagnostic Findings Echo 08/11/2021 LVEF 60-65%, Mild concentric LVH, normal RV systolic function with normal sized LA and RA. No significant valvular abnormalities. (1) Anemia Anemia type: unspecified type Qualified Code(s): D64.9 - Anemia, unspecified
[2021-08-11] MEDS: MYCOPHENOLATE MOFETIL 250 MG CAP PO SCH ×2 (08:16→20:47)
[2021-08-11] MEDS: TACROLIMUS 1 MG CAP PO SCH ×2 (08:16→20:47)
[2021-08-11] MEDS: BACLOFEN 20 MG TAB PO SCH ×3 (08:17→20:58)
[2021-08-11] MEDS: CHOLECALCIFEROL 1,000 UNITS 25 MCG TAB PO SCH (08:17)
[2021-08-11] MEDS: amLODIPine BESYLATE 5 MG TAB PO SCH (08:17)
[2021-08-11] MEDS: ROSUVASTATIN CALCIUM 20 MG TAB PO SCH (08:17)
[2021-08-11] MEDS: METOPROLOL TARTRATE 25 MG TAB PO SCH ×2 (08:17→20:47)
[2021-08-11] MEDS: FAMOTIDINE 20 MG TAB PO SCH ×2 (08:17→20:48)
[2021-08-11] MEDS: PANTOprazole 40 MG TAB PO SCH (08:17)
[2021-08-11] MEDS: INSULIN ASPART PER UNIT SC SCH ×4 (08:21→20:48)
--- NOTE | 2021-08-11 09:28 | Pharmacy Report ---
Pharmacy Glycemic Short Note 2 - Date of Service August 11, 2021 - Glycemic Short BSG Results (Last 24 hours): 08/10/21 08/10/21 08/10/21 11:20 16:06 20:13 Glucose POC Glucose 282 H 195 H 188 H 08/11/21 08/11/21 08/11/21 01:46 06:00 07:09 Glucose 139 H POC Glucose 165 H 158 H OUTPATIENT ANTIDIABETIC REGIMEN: * Lantus 50 units SC HS * Humalog 4 units SC AC + 1 unit per 50 mg/dL/unit above 150 mg/dL * HbA1c: 7.7% (08/08/21) ASSESSMENT: 08/11 * Fasting BSG 134mg/dl, with 2 units of correctional insulin overnight, continue Lantus at 55 units, move to HS today for home dosing schedule * Increase in BSG with meals, tighten CR 08/10 * BSGs improved yesterday, ranging 152-188 mg/dL, fasting BSG of 208 mg/dL this morning * Plan is to step Lantus back to HS, will give increased dose at lunchtime today * Lunch BSG of 282 mg/dL, will further tighten Novolog parameters * No change to stressors 08/09 * BSGs trended down nicely yesterday, transitioned off insulin infusion this morning * Repeat labs today WNL (serum bicarbonate 24 mmol/L, AG 6) * Home dose of Lantus 50 units SC daily given this morning, will plan to give in afternoon tomorrow, and then ultimately HS afterwards to match outpatient regimen * Weight-based stress of 2 Novolog parameters for now 08/08 * CR is a 56 year old male presented to ED this morning due to altered mental status * Found to have BSG of 329 mg/dL and INR > 10.7 at time or presentation, subsequently received Kcentra for right leg hematoma w/ possible extravasation * Pharmacy consulted for glycemic management upon transfer to floor * Insulin infusion initiated at that time * Labs largely stable, serum bicarbonate is slightly below normal range at 20 mmol/L, anion gap of 11 * Repeat labs this afternoon * Patient currently NPO * Pertinent PMH includes hx of renal transplant, T2DM, morbid obesity, Afib, HTN, and hyperlipidemia PLAN FOR INPATIENT GLYCEMIC CONTROL: * Basal insulin * Lantus 55 units SQ HS * Bolus insulin * NovoLog per scale ACHS or Q6hrs while NPO * Goal Range: Low 110 mg/dL - High 140 mg/dL * Correction Factor: 15 mg/dL/unit * Nutritional / Prandial insulin 1 unit per 4 g CHO PLAN FOR DISCHARGE: * HbA1c is slightly above goal of less than 7% * Reasonable to continue outpatient regimen at discharge, will follow inpatient insulin needs and make adjustments if needed * Ensure timely follow-up with outpatient provider for further insulin dose adjustments
[2021-08-11] MEDS ORDERED: bisacodyL 10 MG SUPP PR PRN (09:37)
--- NOTE | 2021-08-11 16:24 | Consultation Report ---
NEPHROLOGY CONSULTATION NOTE DATE OF SERVICE: 08/11/2021 REASON FOR CONSULTATION: Kidney transplant patient, now admitted for management of transplant medica tion. HISTORY OF PRESENT ILLNESS: The patient is a 56-year-old male with longstanding diabetes with all th e associated complications including end-stage renal disease, status post kidney transplant in 2015. He was brought to the hospital a few days ago because of confusion status, extremely high sugar. A few days prior, he also had very high elevated INR of 10 and was complaining of right-sided leg pain. Workup showed he was found to have a large hematoma in the right thigh causing the pain. At this t vilma, Coumadin is on hold. Cardiology wants to put him on Eliquis and asked for an opinion regarding transplant medication interaction with Eliquis. His kidney function is completely normal. His blood glucose, although still high, is trending down. His vital signs otherwise are stable. Hemoglobin w as low with reading as low as 5.9 and has received blood transfusion. At this time, hemoglobin is mor e than 8. As for the transplant, he takes Prograf and CellCept. Prograf is 3 mg in the evening and 2 in the morning and CellCept is 500 twice daily. [facility] Since admission, he did get some IV fluid as well as electrolyte replacement. The right thigh pain is also getting better. ALLERGIES: None. PAST MEDICAL AND SURGICAL HISTORY: Includes longstanding type 2 diabetes, on insulin, not at goal, d iabetic neuropathy, hypothyroidism, obstructive sleep apnea, on CPAP, AFib, sick sinus syndrome, tach ybrady syndrome, status post pacemaker, pulmonary hypertension, morbid obesity, end-stage renal disea se, status post renal transplant, history of anemia of CKD, status post AV fistula, amputation of the left great toe, cataract surgery, pacemaker, kidney transplantation in 2015. MEDICATIONS: Medication at home was reviewed in detail and is as per the H and P and the reconciliat ion list. Transplant regimen already detailed in HPI. FAMILY HISTORY: Significant for son with cleft lip and palate. SOCIAL HISTORY: . No smoking, no alcohol, no drugs. REVIEW OF SYSTEMS: As detailed in HPI. The patient cannot really tell what all happened prior to ho spitalization, but pertinent positive includes right thigh pain as well as feeling weak. PHYSICAL EXAMINATION: GENERAL: A middle-aged white male who is morbidly obese. He is not in acute respiratory distress. He is awake, alert, oriented x3. VITAL SIGNS: Blood pressure is 143/63, pulse rate 69, temperature 36.9, 100% on CPAP, but at this ti me, he is 98% on room air. HEENT: Mucous membrane is moist. NECK: Supple. No jugular venous distention. CHEST: Bilaterally clear to auscultation. CARDIOVASCULAR: S1 and S2 regular. Soft systolic murmur heard. ABDOMEN: Soft, nontender. EXTREMITIES: Show trace to 1+ edema in the right, but left had no edema. Still has swelling and bru ising in the right thigh. NEUROLOGIC: Awake, alert, oriented x3, normal speech. Moving all 4 extremities. LABORATORY TEST: His hemoglobin was as low as 5.9 with severe right thigh hematoma. Most recent hem oglobin is 8.6. Kidney function is completely normal with a creatinine of 0.96, BUN of 16, sodium 13 8, potassium 4.2, calcium 8.9, magnesium 1.7 last checked, phosphorus 2.6. CT scan of the leg showed a large intramuscular hematoma. ASSESSMENT AND PLAN: A 56-year-old male with extensive medical problem list including end-stage marcello l disease, status post kidney transplant, admitted with a large right thigh hematoma causing severe b lood loss anemia in the setting of supratherapeutic Coumadin. He was also found to be confused with extremely high glucose. I was consulted for kidney transplant status/medication management. 1. Status post kidney transplant in 2015: At this point, he does not have issues with kidney transp lant. His kidney function is completely normal. He is on a stable regimen of Prograf and CellCept, which I will continue at the same dose as he was getting at home. Doing a drug level in our hospital is not practical as the results come very late, so it is not of any help at this point, no further w orkup is needed from a kidney transplant status. 2. The patient needs chronic anticoagulation. I discussed with cardiology that yes, he can have Radha reinaldo. Given completely normal kidney function, the drug dose does not even have to be adjusted. The re is no special interaction of Eliquis with the Prograf or CellCept. The decision of when to restar t the anticoagulation is up to cardiology depending on the risk of bleeding and the hematoma, I will defer that to primary service and cardiology. Job ID: [id number]
--- NOTE | 2021-08-11 16:51 | Hospitalist Progress Note ---
Date of Service August 11, 2021 Assessment & Plan Plan: Acute blood loss anemia Right thigh Hematoma -Hb 10.2 from 08/05--> 7.2 --> 5.9 (s/p 2 units) --> 8.3 -In setting of supratherapeutic INR, active bleed into right thigh -s/p 2 units packed RBC with appropriate response -Transfuse to keep Hb >8 with his underlying cardiovascular disease H/H has remained stable Right thigh ultrasound 08/10 shows decrease in size of hematoma Supratherapeutic INR -in setting of poor oral intake recently due to covid 19 infection (recovered) -s/p 10mg IV vitamin K and K centra -INR >10 on admission --> 1.1 History of renal transplant -continue home mycophenolate and tacrolimus -Cr remains stable HHNK diabetic neuropathy -required insulin drip, now basal bolus insulin per pharmacy -tolerating diet HTN -continue amlodipine PAF on coumadin SSS s/p PPM -continue metoprolol 25mg BID -coumadin on hold for now. Cardiology consulted to comment on superintendent container terminal anticoagulation, appreciate input. Nephrology consulted to determine if patient is a candidate for NOAC with his kidney transplant and medications. Constipation Nausea/vomiting -Nausea/vomiting likely due to constipation. No BM since being here -miralax daily. If no BM by tomorrow, will need suppository -Zofran PRN for nausea -If ongoing symptoms, consider obstruction series DVT ppx SCDs for now Disposition -From home, lives with his mother. Evaluated by PT yesterday and inpatient rehab is recommended. Admission and Anticipated Discharge Date Admission Date: August 08, 2021 Subjective Patient nauseous, vomited several times this morning. has not had a BM since being here Right leg less painful, he is able to move it more Physical Exam Physical Exam: appears nauseous, no acute distress Respiratory: breathing comfortably on room air, no wheezing/rhonchi/rales Cardiovascular: regular rate and rhythm, no murmurs/rubs/gallops Gastrointestinal (Abdomen): soft, non tender Musculoskeletal: 1+ edema right leg, right thigh swollen compared to left but not rigid, distal extremities are warm and perfused Skin: multiple areas of bruising noted-- left arm, abdomen, dorsum of right foot-- unchanged Neurologic: awake, alert, spontaneously moving extremities Results & Data Results & Data ([place]) Vital Signs (Past 12 Hours) Vital Signs Temp Pulse Pulse Resp BP Pulse Ox 08/11/21 16:07 36.8 C 72 19 144/73 H 95 08/11/21 15:17 77 08/11/21 12:20 36.7 C 70 19 146/66 H 93 08/11/21 07:58 69 08/11/21 04:51 36.9 C 69 22 143/63 H 100 Laboratory Results Short CBC 08/11/21 Range/Units 06:00 WBC 5.66 (4.8-10.8) K/uL Hgb 8.6 L (14.0-18.0) g/dL Hct 27.6 L (42-52) % Plt Count 300 (130-400) K/uL BMP 08/11/21 06:00 Sodium 138 Potassium 4.2 Chloride 106 Carbon Dioxide 26 BUN 16 Creatinine 0.96 Glucose 139 H Calcium 8.9 Medications Administered Current Inpatient Medications Acetaminophen (Acetaminophen 325 Mg Tab) 650 mg PO Q4H PRN PRN Reason: Pain or Fever Stop: 09/07/21 09:15 Last Admin: 08/09/21 20:48 Dose: 650 mg Documented by: Al Hydrox/Mg Hydrox/Simethicone (Aluminum/Magnesium/Simeth (Maalox Max) 30 Ml Udc) 30 ml PO Q6H PRN PRN Reason: Heartburn Stop: 09/08/21 20:57 Last Admin: 08/10/21 17:55 Dose: 30 ml Documented by: Amlodipine Besylate (Amlodipine Besylate 5 Mg Tab) 10 mg PO QAM [facility] Stop: 09/07/21 09:44 Last Admin: 08/11/21 08:17 Dose: 10 mg Documented by: Baclofen (Baclofen 20 Mg Tab) 20 mg PO BID [facility] Stop: 09/07/21 09:44 Last Admin: 08/11/21 08:17 Dose: 20 mg Documented by: Bisacodyl (Bisacodyl 10 Mg Supp) 10 mg [place] DAILY PRN PRN Reason: Constipation Stop: 09/10/21 09:36 Famotidine (Famotidine 20 Mg Tab) 20 mg PO BID [facility] Stop: 09/09/21 20:59 Last Admin: 08/11/21 08:17 Dose: 20 mg Documented by: Glucagon (Glucagon For Inj 1 Mg Vial) 1 mg SQ UD PRN; Protocol PRN Reason: Hypoglycemia Protocol Stop: 09/07/21 02:32 Hydromorphone HCl (Hydromorphone Inj 0.5 Mg/0.5 Ml Syr) 0.5 mg IV Q3H PRN PRN Reason: Pain Stop: 08/22/21 09:15 Sodium Chloride (Nss) 250 mls @ 15 mls/hr IV .[id number] PRN PRN Reason: For Transfusion Stop: 09/07/21 09:15 Insulin Aspart (Insulin Aspart Per Unit) 0 units SC [facility] Stop: 09/08/21 11:29 Last Admin: 08/11/21 12:45 Dose: 1 units Documented by: Insulin Glargine (Insulin Glargine Solostar 100 Units/Ml 3 Ml Pen) 55 units SC [facility]; Protocol Stop: 09/10/21 20:59 Metoprolol Tartrate (Metoprolol Tartrate 25 Mg Tab) 25 mg PO BID [facility] Stop: 09/07/21 09:44 Last Admin: 08/11/21 08:17 Dose: 25 mg Documented by: Miscellaneous Information (Pharmacy Glycemic Mgmt Consult) 1 ea N/A UD PRN PRN Reason: Consult Stop: 09/07/21 09:15 Mycophenolate Mofetil (Mycophenolate Mofetil 250 Mg Cap) 500 mg PO BID [facility] Stop: 09/07/21 09:44 Last Admin: 08/11/21 08:16 Dose: 500 mg Documented by: Nitroglycerin (Nitroglycerin Sl 0.4 Mg/Tab Tab) 0.4 mg SL UD PRN PRN Reason: Chest Pain Stop: 09/07/21 09:15 Ondansetron HCl (Ondansetron Inj 2 Mg/Ml 2 Ml Vial) 4 mg IV Q6H PRN PRN Reason: Nausea Stop: 09/07/21 09:15 Last Admin: 08/10/21 19:26 Dose: 4 mg Documented by: Oxycodone HCl (Oxycodone Hcl Ir 5 Mg Tab (Immediate Release)) 5 mg PO Q4 PRN PRN Reason: pain Stop: 08/22/21 09:15 Last Admin: 08/09/21 13:39 Dose: 5 mg Documented by: Pantoprazole Sodium (Pantoprazole 40 Mg Tab) [address] [facility]; Protocol Stop: 09/07/21 09:44 Last Admin: 08/11/21 08:17 Dose: 40 mg Documented by: Polyethylene Glycol (Polyethylene (Miralax) 17 Gm Pack) 17 gm PO DAILY [facility] Stop: 09/11/21 08:59 Rosuvastatin Calcium (Rosuvastatin Calcium 20 Mg Tab) [facility] Stop: 09/07/21 09:44 Last Admin: 08/11/21 08:17 Dose: 20 mg Documented by: Senna/Docusate Sodium (Docusate Sodium/Senna 50/8.6mg Tab) 2 tab PO HS [facility] Stop: 09/09/21 20:59 Last Admin: 08/10/21 21:25 Dose: 2 tab Documented by: Tacrolimus (Tacrolimus 1 Mg Cap) [facility] Stop: 09/07/21 09:44 Last Admin: 08/11/21 08:16 Dose: 2 mg Documented by: Tacrolimus (Tacrolimus 1 Mg Cap) 3 mg PO QPM [facility] Stop: 09/07/21 20:59 Last Admin: 08/10/21 22:11 Dose: 3 mg Documented by: Vitamin D (Cholecalciferol 1,000 Units 25 Mcg Tab) 1,[address] [facility] Stop: 09/07/21 09:44 Last Admin: 08/11/21 08:17 Dose: 1,000 units Documented by:
[2021-08-11] MEDS ORDERED: POLYETHYLENE (MIRALAX) 17 GM PACK PO STA (17:32)
[2021-08-11] MEDS: SODIUM CHLORIDE 0.9% 500 ML IV SCH (17:32)
[2021-08-11] MEDS: DOCUSATE SODIUM/SENNA 50/8.6MG TAB PO SCH (20:48)
[2021-08-11] MEDS ORDERED: INSULIN GLARGINE SOLOSTAR 100 UNITS/ML 3 ML PEN SC SCH (21:00)
[2021-08-12] MEDS: SODIUM CHLORIDE 0.9% 500 ML IV SCH ×3 (00:17→00:20)
[2021-08-12 06:53] LABS: Hematocrit (blood only) 26.4 % (42-52); Hemoglobin 8.2 g/dL (14.0-18.0); Mean Corpuscular Hemoglobin 26.4 pg (25-34); Mean Corpuscular Hgb Conc 31.1 g/dL (32-36); Mean Corpuscular Volume 84.9 fL (80-100); Mean Platelet Volume 9.9 fL (7.4-10.4); Platelet Count 274 K/uL (130-400); RDW Coefficient of Variation 16.6 % (11.5-14.5); Red Blood Count 3.11 M/uL (4.7-6.1); White Blood Count 5.72 K/uL (4.8-10.8)
[2021-08-12 07:15] LABS: BUN Creatinine Ratio 16.2 (10-20); Creatinine Clr Calc Pharmacy 131.8 ml/min; Est GFR (Non-African American) 85.4 ml/min; Potassium 4.2 mmol/L (3.5-5.1)
[2021-08-12 07:20] LABS: INR 1.9 (0.9-1.1); Prothrombin Time 18.5 Seconds (9.0-12.0)
[2021-08-12] MEDS ORDERED: SODIUM CHLORIDE 0.9% 1000ML 1,000 ML IV SCH (07:30)
--- NOTE | 2021-08-12 07:37 | Cardiology Progress Note ---
Date of Service August 12, 2021 Assessment & Plan (1) Hematoma: Plan: Right leg hematoma reducing in size. Per ultrasound 08/10- Slight decrease in size in the large intramuscular hematoma within the right anterior thigh currently measuring 14.4 x 2.8 x 5.3 cm (2) Supratherapeutic INR: Plan: INR 1.9 this morning Despite Coumadin being held patient appears to have an increasing INR. Would refrain from the use of Coumadin in the future- this can lead to labile INRs (3) Anemia: Plan: Hemoglobin stable after receiving 2 units of PRBCs, 8.2 today (4) PAF (paroxysmal atrial fibrillation): Plan: Hx of PAF, anticoagulated on Coumadin- currently AC is on hold. 3% afib burden on [facility] Yo[facility] device interrogation 08/10. Echo stable. SR 70s on monitor over night. No evidence of Afib during hospital stay so far. 1. Continue to hold anticoagulation, INR elevated without. Future considerations for DOAC (no known integrations between CellCept for tacrolimus). Spoke with Dr. Reyes- no contraindications to transitioning from Coumadin to Eliquis if necessary in the future. (5) Pacemaker: Plan: Plan as above. Plan: The patient is currently clinically stable. Will defer to primary team regarding PT vs rehab. Case discussed with Dr. Jensen. Patient lives in [place] and would appreciate at discharge if we set him up with an appt in our [place] cardio outreach. Admission and Anticipated Discharge Date Admission Date: August 08, 2021 Supervising Physician Co-Signing Physician Notes I have seen and examined the patient. Reviewed the medical record and discussed the case with the MAIL CARRIER AND CLERK. Plan as outlined. Patient's INR is likely related to nutrition. I will give him one dose of p.o. vitamin K which should take care of the problem. Subjective 56 year old male with history of PAF with TBS s/p ppm as well as renal transplant, admitted due to significant anemia (admission hemoglobin of 5.9 s/p 2 units of PRBCs), Supratherapeutic INR (10), and right thigh hematoma. Echo revealed: LVEF 60-65%, Mild concentric LVH, normal RV systolic function with normal sized LA and RA. No significant valvular abnormalities. Device interrogated at bedside yesterday showing a 3% atrial fib burden. No Afib seen on telemetry during this admission Tele: SR 60-70s Upon entrance into the room patient was sitting up in bed feeling improved. Since patient was able to move his bowels he has had no further episodes of nausea or vomiting. No chest pain or shortness of breath. No palpitations, dizziness, syncope or near syncope. No orthopnea, PND. Right leg swollen compared to the Left. Patient feeling fatigued and worn out. He is working with PT, but continues to have pain in the right leg with activity. Labs: Hemoglobin: 8.0>>7.3>>5.9 (2 units given)>>8.3>>8.4>>8.5>>8.6>> 8.2 (08/12) INR 1.9 (08/12) Scr 0.99 (08/12) Review of Systems Review of Systems: All systems reviewed & are unremarkable except as noted in HPI & below Physical Exam Physical Exam: General: no acute distress and stated age Head: normocephalic, no masses, lesions, tenderness or abnormalities Eyes: conjunctiva are pink and non-injected, sclera clear Neck: supple, no adenopathy, no bruits, normal jugular venous pulse, no hepatojugular reflux Chest: normal shape and normal respiratory effort Lungs: clear to auscultation and percussion Cardiac Exam: - regular rate & rhythm, no murmurs gallops or rubs - normal S1, normal S2 Pulses: 2(+) throughout Abdomen: abdomen soft, non-tender, no abnormal masses and no hepatosplenomegaly Musculoskeletal: no gait disturbance, no joint inflammation, no deforming arthritis Extremities: right leg swollen, no edema of left leg. Bruising around the right ankle. Bruising on left bicep Neuro: grossly normal exam Results & Data ([facility]) Vital Signs (Past 12 Hours) Vital Signs Temp Pulse Pulse Resp BP Pulse Ox 08/12/21 04:09 36.7 C 70 16 152/74 H 94 08/12/21 04:05 24 08/11/21 23:56 36.8 C 79 18 167/72 H 96 08/11/21 23:00 73 08/11/21 20:16 37.0 C 76 20 161/75 H 97 (1) Anemia Anemia type: unspecified type Qualified Code(s): D64.9 - Anemia, unspecified
[2021-08-12] MEDS: METOPROLOL TARTRATE 25 MG TAB PO SCH ×2 (08:13→20:03)
[2021-08-12] MEDS: BACLOFEN 20 MG TAB PO SCH ×2 (08:13→19:59)
[2021-08-12] MEDS: MYCOPHENOLATE MOFETIL 250 MG CAP PO SCH ×2 (08:14→20:01)
[2021-08-12] MEDS: FAMOTIDINE 20 MG TAB PO SCH ×2 (08:14→20:02)
[2021-08-12] MEDS: INSULIN ASPART PER UNIT SC SCH ×4 (08:57→20:09)
[2021-08-12] MEDS: CHOLECALCIFEROL 1,000 UNITS 25 MCG TAB PO SCH (09:56)
[2021-08-12] MEDS: TACROLIMUS 1 MG CAP PO SCH ×2 (09:56→20:00)
[2021-08-12] MEDS: amLODIPine BESYLATE 5 MG TAB PO SCH (09:56)
[2021-08-12] MEDS: ROSUVASTATIN CALCIUM 20 MG TAB PO SCH (09:56)
[2021-08-12] MEDS: PANTOprazole 40 MG TAB PO SCH (09:56)
[2021-08-12] MEDS: POLYETHYLENE (MIRALAX) 17 GM PACK PO SCH (10:00)
[2021-08-12] MEDS ORDERED: PHYTONADIONE 5 MG TAB PO STA (13:07)
--- NOTE | 2021-08-12 13:26 | Hospitalist Progress Note ---
Date of Service August 12, 2021 Assessment & Plan (1) Hematoma: Plan: Acute blood loss anemia Right thigh Hematoma -Hb 10.2 from 08/05--> 7.2 --> 5.9 (s/p 2 units) --> 8.3 -In setting of supratherapeutic INR, active bleed into right thigh -s/p 2 units packed RBC with appropriate response -Transfuse to keep Hb >8 with his underlying cardiovascular disease H/H has remained stable Right thigh ultrasound 08/10 shows decrease in size of hematoma Supratherapeutic INR -in setting of poor oral intake recently due to covid 19 infection (recovered) -s/p 10mg IV vitamin K and K centra -INR >10 on admission --> 1.9 History of renal transplant -continue home mycophenolate and tacrolimus -Cr remains stable HHNK diabetic neuropathy -required insulin drip, now basal bolus insulin per pharmacy -tolerating diet HTN -continue amlodipine PAF on coumadin SSS s/p PPM -continue metoprolol 25mg BID -coumadin on hold for now. Cardiology on case to comment on snf anticoagulation.Nephrology consulted to determine if patient is a candidate for NOAC with his kidney transplant and medications. Constipation Nausea/vomiting -Nausea/vomiting likely due to constipation. No BM since being here -miralax daily. If no BM by tomorrow, will need suppository -Zofran PRN for nausea -If ongoing symptoms, consider obstruction series DVT ppx SCDs for now Disposition -From home, lives with his mother. Evaluated by PT yesterday and inpatient rehab is recommended. ROS-No Headache, No Visual Changes, No Nausea, No Vomiting, No Fever, No Chills, No Neck Pain or Stiffness, No Chest Pain, No Palpitations, No SOB, No MUNOZ, No Cough, No Sputum, No Wheezing, No Abdominal Pain, No Diarrhea, No Hematemesis, No Hemoptysis, No Unexpected Weight Loss, No Flank pain, No Melena, No Hematochezia, No Frequency, No Urgency, No Burning, No Hematuria, No Rashes, No Diaphoresis. Appetite is Normal Physical Exam Gen-AAO x 3, NAD, Afebrile Head-NCAT, EOMI, PERRLA, Anicteric Sclera, No Posterior Pharyngeal Erythema Neck-Supple, No JVD, No Thyromegaly, No Masses, No LAD, No Bruits Lungs-Clear to Auscultation Bilaterally, No Rales, No Rhonchi, No Wheezing, No Crepitus Chest-No S4, +S1, +S2, No S3, No Murmurs, No Rubs, No Gallops, No Ectopy Abdomen-Soft, Bowel Sounds Present, Non Tender, Non Distended, No Hepatomegaly, No Splenomegaly, No Palpable Masses, No Rebound, No Rigidity, No Guarding Musculoskeletal-Full Range of Motion Bilaterally, No CVAT Extremities-No Cyanosis, No Clubbing, No Edema Nuero-Cranial Nerves II-XII grossly intact, Motor WNL, DTRs WNL, Strength WNL, Non Focal Psych-Normal Mood Admission and Anticipated Discharge Date Admission Date: August 08, 2021 Subjective Patient seen in room resting comfortably denies any new issues. Results & Data Results & Data ([facility]) Vital Signs (Past 12 Hours) Vital Signs Temp Pulse Pulse Resp BP Pulse Ox Pulse Ox 08/12/21 11:47 36.9 C 65 17 128/74 94 08/12/21 09:00 96 08/12/21 08:26 36.9 C 66 17 160/64 H 95 08/12/21 07:47 70 08/12/21 04:09 36.7 C 70 16 152/74 H 94 08/12/21 04:05 24
[2021-08-12] MEDS: DOCUSATE SODIUM/SENNA 50/8.6MG TAB PO SCH (20:03)
[2021-08-12] MEDS: INSULIN GLARGINE SOLOSTAR 100 UNITS/ML 3 ML PEN SC SCH (20:07)
[2021-08-13 07:03] LABS: Hematocrit (blood only) 26.5 % (42-52); Hemoglobin 8.2 g/dL (14.0-18.0); Mean Corpuscular Hemoglobin 26.2 pg (25-34); Mean Corpuscular Hgb Conc 30.9 g/dL (32-36); Mean Corpuscular Volume 84.7 fL (80-100); Mean Platelet Volume 9.6 fL (7.4-10.4); Platelet Count 294 K/uL (130-400); RDW Coefficient of Variation 16.7 % (11.5-14.5); RDW Standard Deviation 50.5 fL (36.4-46.3); Red Blood Count 3.13 M/uL (4.7-6.1); White Blood Count 5.06 K/uL (4.8-10.8)
[2021-08-13 07:12] LABS: INR 1.5 (0.9-1.1); Prothrombin Time 15.2 Seconds (9.0-12.0)
[2021-08-13 07:31] LABS: Albumin Level 2.8 gm/dl (3.4-5.0); BUN Creatinine Ratio 13.8 (10-20); Bilirubin,Total 1.5 mg/dl (0.2-1.0); Calcium 8.6 mg/dl (8.5-10.1); Creatinine Clr Calc Pharmacy 139.6 ml/min; Est GFR (African American) 105.4 ml/min; Est GFR (Non-African American) 90.9 ml/min; Globulin 2.9 gm/dl (2.5-4.0); Potassium 4.1 mmol/L (3.5-5.1); Total Protein 5.7 gm/dl (6.0-8.3)
--- NOTE | 2021-08-13 07:40 | Cardiology Progress Note ---
Date of Service August 13, 2021 Assessment & Plan (1) Hematoma: Plan: Right leg hematoma reducing in size. Per ultrasound 08/10- Slight decrease in size in the large intramuscular hematoma within the right anterior thigh currently measuring 14.4 x 2.8 x 5.3 cm (2) Supratherapeutic INR: Plan: INR 1.9 yesterday- give x1 PO dose of Vitamin K, INR now 1.5 Would refrain from the use of Coumadin in the future- this can lead to labile INRs (3) Anemia: Plan: Hemoglobin stable after receiving 2 units of PRBCs, 8.2 today (4) PAF (paroxysmal atrial fibrillation): Plan: Hx of PAF, anticoagulated on Coumadin- currently AC is on hold. 3% afib burden on [facility] Yo[facility] device interrogation 08/10. Echo stable. SR 70s on monitor over night. No evidence of Afib during hospital stay so far. 1. Continue to hold anticoagulation, INR elevated without, was given vitamin K yesterday with improvement of INR to 1.5. Future considerations for DOAC (no known integrations between CellCept for tacrolimus). Spoke with Dr. Reyes- no contraindications to transitioning from Coumadin to Eliquis if necessary in the future. 2. Would recommend continuing to hold AC at discharge. Thankfully he does have a ppm and we can have his alerts set to make us aware of any reoccurrence of his PAF. We will reassess need for chronic AC in the outpatient setting. (5) Pacemaker: Plan: Plan as above. Plan: The patient is currently clinically stable. Will defer to primary team regarding PT vs rehab. Patient requesting [facility]- case discussed with his bilingual case manager, Tal. She strongly encouraged [facility] re[facility], but patient declined and would prefer [facility] or Home. Plans for PT to re-evaluate. Case discussed with Dr. Jensen. Admission and Anticipated Discharge Date Admission Date: August 08, 2021 Supervising Physician Co-Signing Physician Notes I have discussed the case with the GREENSKEEPER HEAD and reviewed the medical record. I agree with the plan as outlined above. Subjective 56 year old male with history of PAF with TBS s/p ppm as well as renal transplant, admitted due to significant anemia (admission hemoglobin of 5.9 s/p 2 units of PRBCs), Supratherapeutic INR (10), and right thigh hematoma. Echo revealed: LVEF 60-65%, Mild concentric LVH, normal RV systolic function with normal sized LA and RA. No significant valvular abnormalities. Device interrogated at bedside yesterday showing a 3% atrial fib burden. No Afib seen on telemetry during this admission Tele: SR 60s Upon entrance into the room patient was sitting up in bed feeling well. No chest pain or shortness of breath. No palpitations, dizziness, syncope or near syncope. No orthopnea, PND. Right leg swollen compared to the Left. Notes improvement in his energy level. Pain in right leg improved. Able to get up out of bed and to the bathroom independently. Working with PT- Patient questioning when he will be discharged and if he will be going to [facility]. Labs: Hemoglobin: 8.0>>7.3>>5.9 (2 units given)>>8.3>>8.4>>8.5>>8.6>> 8.2>> 8.2 (/) INR 1.9 (x1 dose of vitamin K) >> 1.5 (2) Scr 0.94 (/) Review of Systems Review of Systems: All systems reviewed & are unremarkable except as noted in HPI & below Physical Exam Physical Exam: General: no acute distress and stated age Head: normocephalic, no masses, lesions, tenderness or abnormalities Eyes: conjunctiva are pink and non-injected, sclera clear Neck: supple, no adenopathy, no bruits, normal jugular venous pulse, no hepatojugular reflux Chest: normal shape and normal respiratory effort Lungs: clear to auscultation and percussion Cardiac Exam: - regular rate & rhythm, no murmurs gallops or rubs - normal S1, normal S2 Pulses: 2(+) throughout Abdomen: abdomen soft, non-tender, no abnormal masses and no hepatosplenomegaly Musculoskeletal: no gait disturbance, no joint inflammation, no deforming arthritis Extremities: right leg swollen, no edema of left leg. Bruising around the right ankle. Bruising on left bicep Neuro: grossly normal exam Results & Data ([facility]) Vital Signs (Past 12 Hours) Vital Signs Pulse Resp Pulse Ox 08/13/21 05:49 68 08/13/21 03:13 64 20 95 02/09/22 22:20 67 22 92 Laboratory Results 08/13/21 08/13/21 08/13/21 Range/Units 07:04 06:30 06:30 WBC 5.06 (4.8-10.8) K/uL RBC 3.13 L (4.7-6.1) M/uL Hgb 8.2 L (14.0-18.0) g/dL Hct 26.5 L (42-52) % MCV 84.7 (80-100) fL MCH 26.2 (25-34) pg MCHC 30.9 L (32-36) g/dL RDW Std Deviation 50.5 H (36.4-46.3) fL RDW Coeff of Jaxson 16.7 H (11.5-14.5) % Plt Count 294 (130-400) K/uL MPV 9.6 (7.4-10.4) fL PT (9.0-12.0) Seconds INR (0.9-1.1) Sodium 135 L (136-145) mmol/L Potassium 4.1 (3.5-5.1) mmol/L Chloride 106 (98-107) mmol/L Carbon Dioxide 24 (21-32) mmol/L Anion Gap 5 (3-11) BUN 13 (6-23) mg/dl Creatinine 0.94 (0.6-1.4) mg/dl Est Cr Clr Drug Dosing 139.6 ml/min Est GFR ( Amer) 105.4 ml/min Est GFR (Non-Af Amer) 90.9 ml/min BUN/Creatinine Ratio 13.8 (10-20) Glucose 127 H (70-99(Fasting)) mg/dl POC Glucose 137 H (70-99) mg/dl Calcium 8.6 (8.5-10.1) mg/dl Total Bilirubin 1.5 H (0.2-1.0) mg/dl AST 12 L (13-39) U/L ALT 10 (7-52) U/L Alkaline Phosphatase 54 (34-104) U/L Total Protein 5.7 L (6.0-8.3) gm/dl Albumin 2.8 L (3.4-5.0) gm/dl Globulin 2.9 (2.5-4.0) gm/dl Albumin/Globulin Ratio 1.0 (0.9-2) 08/13/21 08/12/21 08/12/21 Range/Units 06:30 20:01 16:20 WBC (4.8-10.8) K/uL RBC (4.7-6.1) M/uL Hgb (14.0-18.0) g/dL Hct (42-52) % MCV (80-100) fL MCH (25-34) pg MCHC (32-36) g/dL RDW Std Deviation (36.4-46.3) fL RDW Coeff of Jaxson (11.5-14.5) % Plt Count (130-400) K/uL MPV (7.4-10.4) fL PT 15.2 H (9.0-12.0) Seconds INR 1.5 H (0.9-1.1) Sodium (136-145) mmol/L Potassium (3.5-5.1) mmol/L Chloride (98-107) mmol/L Carbon Dioxide (21-32) mmol/L Anion Gap (3-11) BUN (6-23) mg/dl Creatinine (0.6-1.4) mg/dl Est Cr Clr Drug Dosing ml/min Est GFR ( Amer) ml/min Est GFR (Non-Af Amer) ml/min BUN/Creatinine Ratio (10-20) Glucose (70-99(Fasting)) mg/dl POC Glucose 150 H 134 H (70-99) mg/dl Calcium (8.5-10.1) mg/dl Total Bilirubin (0.2-1.0) mg/dl AST (13-39) U/L ALT (7-52) U/L Alkaline Phosphatase (34-104) U/L Total Protein (6.0-8.3) gm/dl Albumin (3.4-5.0) gm/dl Globulin (2.5-4.0) gm/dl Albumin/Globulin Ratio (0.9-2) 08/12/21 Range/Units 11:37 WBC (4.8-10.8) K/uL RBC (4.7-6.1) M/uL Hgb (14.0-18.0) g/dL Hct (42-52) % MCV (80-100) fL MCH (25-34) pg MCHC (32-36) g/dL RDW Std Deviation (36.4-46.3) fL RDW Coeff of Jaxson (11.5-14.5) % Plt Count (130-400) K/uL MPV (7.4-10.4) fL PT (9.0-12.0) Seconds INR (0.9-1.1) Sodium (136-145) mmol/L Potassium (3.5-5.1) mmol/L Chloride (98-107) mmol/L Carbon Dioxide (21-32) mmol/L Anion Gap (3-11) BUN (6-23) mg/dl Creatinine (0.6-1.4) mg/dl Est Cr Clr Drug Dosing ml/min Est GFR ( Amer) ml/min Est GFR (Non-Af Amer) ml/min BUN/Creatinine Ratio (10-20) Glucose (70-99(Fasting)) mg/dl POC Glucose 117 H (70-99) mg/dl Calcium (8.5-10.1) mg/dl Total Bilirubin (0.2-1.0) mg/dl AST (13-39) U/L ALT (7-52) U/L Alkaline Phosphatase (34-104) U/L Total Protein (6.0-8.3) gm/dl Albumin (3.4-5.0) gm/dl Globulin (2.5-4.0) gm/dl Albumin/Globulin Ratio (0.9-2) (1) Anemia Anemia type: unspecified type Qualified Code(s): D64.9 - Anemia, unspecified
[2021-08-13] MEDS: METOPROLOL TARTRATE 25 MG TAB PO SCH ×2 (08:05→20:28)
[2021-08-13] MEDS: TACROLIMUS 1 MG CAP PO SCH ×2 (08:05→20:29)
[2021-08-13] MEDS: MYCOPHENOLATE MOFETIL 250 MG CAP PO SCH ×2 (08:05→20:29)
[2021-08-13] MEDS: CHOLECALCIFEROL 1,000 UNITS 25 MCG TAB PO SCH (08:05)
[2021-08-13] MEDS: FAMOTIDINE 20 MG TAB PO SCH ×2 (08:05→20:25)
[2021-08-13] MEDS: ROSUVASTATIN CALCIUM 20 MG TAB PO SCH (08:06)
[2021-08-13] MEDS: POLYETHYLENE (MIRALAX) 17 GM PACK PO SCH (08:06)
[2021-08-13] MEDS: amLODIPine BESYLATE 5 MG TAB PO SCH (08:06)
[2021-08-13] MEDS: PANTOprazole 40 MG TAB PO SCH (08:07)
[2021-08-13] MEDS: BACLOFEN 20 MG TAB PO SCH ×3 (08:07→20:38)
[2021-08-13] MEDS: INSULIN ASPART PER UNIT SC SCH ×4 (08:08→20:31)
--- NOTE | 2021-08-13 13:17 | Hospitalist Progress Note ---
Date of Service August 13, 2021 Assessment & Plan (1) Hematoma: Plan: Acute blood loss anemia Right thigh Hematoma -Hb 10.2 from 08/05--> 7.2 --> 5.9 (s/p 2 units) --> 8.3 -In setting of supratherapeutic INR, active bleed into right thigh -s/p 2 units packed RBC with appropriate response -Transfuse to keep Hb >8 with his underlying cardiovascular disease H/H has remained stable Right thigh ultrasound 08/10 shows decrease in size of hematoma Supratherapeutic INR -in setting of poor oral intake recently due to covid 19 infection (recovered) -s/p 10mg IV vitamin K and K centra -INR >10 on admission --> 1.9 History of renal transplant -continue home mycophenolate and tacrolimus -Cr remains stable HHNK diabetic neuropathy -required insulin drip, now basal bolus insulin per pharmacy -tolerating diet HTN -continue amlodipine PAF on coumadin SSS s/p PPM -continue metoprolol 25mg BID -coumadin on hold for now. Cardiology on case to comment on snf anticoagulation.Nephrology consulted to determine if patient is a candidate for NOAC with his kidney transplant and medications. Constipation Nausea/vomiting -Nausea/vomiting likely due to constipation. No BM since being here -miralax daily. If no BM by tomorrow, will need suppository -Zofran PRN for nausea -If ongoing symptoms, consider obstruction series DVT ppx SCDs for now Disposition -From home, lives with his mother. Evaluated by PT, inpatient rehab is recommended. ROS-No Headache, No Visual Changes, No Nausea, No Vomiting, No Fever, No Chills, No Neck Pain or Stiffness, No Chest Pain, No Palpitations, No SOB, No MUNOZ, No Cough, No Sputum, No Wheezing, No Abdominal Pain, No Diarrhea, No Hematemesis, No Hemoptysis, No Unexpected Weight Loss, No Flank pain, No Melena, No Hematochezia, No Frequency, No Urgency, No Burning, No Hematuria, No Rashes, No Diaphoresis. Appetite is Normal Physical Exam Gen-AAO x 3, NAD, Afebrile Head-NCAT, EOMI, PERRLA, Anicteric Sclera, No Posterior Pharyngeal Erythema Neck-Supple, No JVD, No Thyromegaly, No Masses, No LAD, No Bruits Lungs-Clear to Auscultation Bilaterally, No Rales, No Rhonchi, No Wheezing, No Crepitus Chest-No S4, +S1, +S2, No S3, No Murmurs, No Rubs, No Gallops, No Ectopy Abdomen-Soft, Bowel Sounds Present, Non Tender, Non Distended, No Hepatomegaly, No Splenomegaly, No Palpable Masses, No Rebound, No Rigidity, No Guarding Musculoskeletal-Full Range of Motion Bilaterally, No CVAT Extremities-No Cyanosis, No Clubbing, No Edema, thigh better Nuero-Cranial Nerves II-XII grossly intact, Motor WNL, DTRs WNL, Strength WNL, Non Focal Psych-Normal Mood Admission and Anticipated Discharge Date Admission Date: August 08, 2021 Subjective Feeling a lot better. Cards note reviewed Results & Data Results & Data ([facility]) Vital Signs (Past 12 Hours) Vital Signs Temp Pulse Pulse Resp BP Pulse Ox 08/13/21 11:24 36.7 C 66 17 154/63 H 95 08/13/21 10:44 66 08/13/21 08:27 37.0 C 69 20 150/55 H 96 08/13/21 05:49 68 08/13/21 03:13 64 20 95
[2021-08-13] MEDS: DOCUSATE SODIUM/SENNA 50/8.6MG TAB PO SCH (20:25)
[2021-08-13] MEDS: INSULIN GLARGINE SOLOSTAR 100 UNITS/ML 3 ML PEN SC SCH (20:26)
[2021-08-14 06:11] LABS: Hematocrit (blood only) 27.8 % (42-52); Hemoglobin 8.5 g/dL (14.0-18.0); Mean Corpuscular Hemoglobin 25.8 pg (25-34); Mean Corpuscular Hgb Conc 30.6 g/dL (32-36); Mean Corpuscular Volume 84.5 fL (80-100); Mean Platelet Volume 9.5 fL (7.4-10.4); Platelet Count 302 K/uL (130-400); RDW Coefficient of Variation 16.6 % (11.5-14.5); Red Blood Count 3.29 M/uL (4.7-6.1); White Blood Count 4.89 K/uL (4.8-10.8)
[2021-08-14 06:24] LABS: INR 1.2 (0.9-1.1); Prothrombin Time 11.9 Seconds (9.0-12.0)
[2021-08-14 06:46] LABS: BUN Creatinine Ratio 10.7 (10-20); Calcium 8.8 mg/dl (8.5-10.1); Creatinine Clr Calc Pharmacy 127.6 ml/min; Est GFR (African American) 94.3 ml/min; Est GFR (Non-African American) 81.4 ml/min; Potassium 3.9 mmol/L (3.5-5.1)
[2021-08-14] MEDS: PANTOprazole 40 MG TAB PO SCH (07:49)
[2021-08-14] MEDS: BACLOFEN 20 MG TAB PO SCH (07:50)
[2021-08-14] MEDS: MYCOPHENOLATE MOFETIL 250 MG CAP PO SCH (07:50)
[2021-08-14] MEDS: TACROLIMUS 1 MG CAP PO SCH (07:51)
[2021-08-14] MEDS: POLYETHYLENE (MIRALAX) 17 GM PACK PO SCH (07:51)
[2021-08-14] MEDS: amLODIPine BESYLATE 5 MG TAB PO SCH (07:52)
[2021-08-14] MEDS: ROSUVASTATIN CALCIUM 20 MG TAB PO SCH (07:52)
[2021-08-14] MEDS: CHOLECALCIFEROL 1,000 UNITS 25 MCG TAB PO SCH (07:52)
[2021-08-14] MEDS: FAMOTIDINE 20 MG TAB PO SCH (07:53)
[2021-08-14] MEDS: DOCUSATE SODIUM/SENNA 50/8.6MG TAB PO SCH (07:54)
[2021-08-14] MEDS: METOPROLOL TARTRATE 25 MG TAB PO SCH (07:54)
[2021-08-14] MEDS: INSULIN ASPART PER UNIT SC SCH ×2 (09:05→12:27)
--- NOTE | 2021-08-14 09:16 | Nephrology Progress Note ---
Date of Service August 14, 2021 Assessment & Plan Admission and Anticipated Discharge Date Admission Date: August 08, 2021 Subjective No new issues. Less thigh pain. hematoma decreasing size. PHYSICAL EXAMINATION: GENERAL: A middle-aged white male who is morbidly obese. He is not in acute respiratory distress. He is awake, alert, oriented x3. HEENT: Mucous membrane is moist. NECK: Supple. No jugular venous distention. CHEST: Bilaterally clear to auscultation. CARDIOVASCULAR: S1 and S2 regular. Soft systolic murmur heard. ABDOMEN: Soft, nontender. EXTREMITIES: Shows trace to 1+ edema in the right, but left had no edema. Still has swelling and bruising in the right thigh. NEUROLOGIC: Awake, alert, oriented x3, normal speech. Moving all 4 extremities. LABORATORY TEST: hgb stable but low. Renl function normal. ASSESSMENT AND PLAN: A 56-year-old male with extensive medical problem list including end-stage renal disease, status post kidney transplant, admitted with a large right thigh hematoma causing severe blood loss anemia in the setting of supratherapeutic Coumadin. He was also found to be confused with extremely high glucose. I was consulted for kidney transplant status/medication management. 1. Status post kidney transplant in 2015: At this point, he does not have issues with kidney transplant. His kidney function is completely normal. He is on a stable regimen of Prograf and CellCept, which I will continue at the same dose as he was getting at home. Doing a drug level in our hospital is not practical as the results come very late, so it is not of any help at this point, no further workup is needed from a kidney transplant status. 2. The patient needs chronic anticoagulation. I discussed with cardiology that yes, he can have Eliquis. Given completely normal kidney function, the drug dose does not even have to be adjusted. There is no special interaction of Eliquis with the Prograf or CellCept. The decision of when to restart the anticoagulation is up to cardiology depending on the risk of bleeding and the hematoma, I will defer that to primary service and cardiology 3 Will sign off. Call if any issues. . Results & Data ([facility]) Vital Signs (Past 12 Hours) Vital Signs Temp Pulse Pulse Resp BP Pulse Ox 08/14/21 07:45 36.9 C 66 15 136/74 97 08/14/21 03:34 36.7 C 73 18 154/77 H 96 08/14/21 00:00 68 08/13/21 23:28 36.7 C 70 18 148/67 H 96 08/13/21 22:35 80 20 95
--- NOTE | 2021-08-14 09:50 | Pharmacy Report ---
Pharmacy Glycemic Short Note 2 - Date of Service August 14, 2021 - Glycemic Short BSG Results (Last 24 hours): 08/13/21 08/13/21 08/13/21 11:21 16:03 20:08 Glucose POC Glucose 129 H 132 H 112 H 08/14/21 08/14/21 05:32 07:08 Glucose 103 H POC Glucose 115 H OUTPATIENT ANTIDIABETIC REGIMEN: * Lantus 50 units SC HS * Humalog 4 units SC AC + 1 unit per 50 mg/dL/unit above 150 mg/dL * HbA1c: 7.7% (08/08/21) ASSESSMENT: 08/14/21 * Patient's BSGs yesterday were [phone] mg/dL. Patient received 79 units of insulin yesterday (55 units of basal and 24 units of bolus). Fasting today is 115 mg/dL. * Patient's current regimen is very basal heavy (similar to outpatient regimen). * Since fasting BSG is trending downwards, will decrease Lantus by 10% to 50 units (or patient's home regimen). * Loosen Novolog for now as BSGs are tightly controlled. 08/11 * Fasting BSG 134mg/dl, with 2 units of correctional insulin overnight, continue Lantus at 55 units, move to HS today for home dosing schedule * Increase in BSG with meals, tighten CR 08/10 * BSGs improved yesterday, ranging 152-188 mg/dL, fasting BSG of 208 mg/dL this morning * Plan is to step Lantus back to HS, will give increased dose at lunchtime today * Lunch BSG of 282 mg/dL, will further tighten Novolog parameters * No change to stressors 08/09 * BSGs trended down nicely yesterday, transitioned off insulin infusion this morning * Repeat labs today WNL (serum bicarbonate 24 mmol/L, AG 6) * Home dose of Lantus 50 units SC daily given this morning, will plan to give in afternoon tomorrow, and then ultimately HS afterwards to match outpatient regimen * Weight-based stress of 2 Novolog parameters for now 08/08 * CR is a 56 year old male presented to ED this morning due to altered mental status * Found to have BSG of 329 mg/dL and INR > 10.7 at time or presentation, subsequently received Kcentra for right leg hematoma w/ possible extravasation * Pharmacy consulted for glycemic management upon transfer to floor * Insulin infusion initiated at that time * Labs largely stable, serum bicarbonate is slightly below normal range at 20 mmol/L, anion gap of 11 * Repeat labs this afternoon * Patient currently NPO * Pertinent PMH includes hx of renal transplant, T2DM, morbid obesity, Afib, HTN, and hyperlipidemia PLAN FOR INPATIENT GLYCEMIC CONTROL: * Basal insulin * Lantus 50 units SQ HS * Bolus insulin * NovoLog per scale ACHS or Q6hrs while NPO * Goal Range: Low 110 mg/dL - High 140 mg/dL * Correction Factor: 15 mg/dL/unit * Nutritional / Prandial insulin 1 unit per 5 g CHO PLAN FOR DISCHARGE: * HbA1c is slightly above goal of less than 7% * Reasonable to continue outpatient regimen at discharge, will follow inpatient insulin needs and make adjustments if needed * Ensure timely follow-up with outpatient provider for further insulin dose adjustments
--- NOTE | 2021-08-14 11:48 | Discharge Summary ---
Date of Service August 14, 2021 Admission HPI Per Admitting Provider This is a 56-year-old male with past medical history significant for diabetes type 2, not at goal, diabetic peripheral neuropathy, hyperthyroidism, obstructive sleep apnea, AFib, sick sinus syndrome, tachybrady syndrome, status post pacemaker, pulmonary artery hypertension, history of symptomatic sinus bradycardia, morbid obesity, endstage renal disease status post renal transplant, history of anemia, was brought in by mother because he was found confused and sugars were running high at home. He was in the ER a couple of days ago with right sided leg pain. He was found to have elevated INR 10.2. Seems he was taking Coumadin 2.5 mg daily . Because of the COVID, he was not able to see his anticoagulation doctor as per the ER notes and at that time, ultrasound showed no DVT, but complex structure with the anterior right thigh measuring 9.7 cm suggesting hematoma.Minimal color flow suspicious for active extravasation and it was thought that the patient was having pain due to hematoma and Klaus bandage was placed to compress the hematoma and stop any bleeding. At that time, it was not thought not to be needed to admit for any surgical intervention as vitamin K was given and with compression, active bleeding was expected to stop and the patient was discharged to follow up with PCP. Advised to follow with the [facility].And today mother found somewhat confused and was concerned for his hyperglycemia, sugars were 400 and he was not acting himself and he was brought in here. In the ER again, his INR was found to be elevated at greater than 10 and when the mother was in the room, per the ER physician he did not talk much. He was also given fentanyl in the ER. Currently mother is not in the room.Patient received fluids, Currently he could tell his name, could tell that he is in the hospital, could tell his date of , only he was confused with the current dates, did complain a lot of pain in the right thigh region. Denies any headache. No blurred visions, no runny nose, no cough, no fevers, no chest pain, no shortness of breath, no nausea, no abdominal pain. He says he is not making much urine because he is not drinking much, he says he was sleeping a lot. Denies any blood in the stools and his hemoglobin was 8, it was 10.2 couple of days ago and again CAT scan showing large hematoma 23 x 6 x 8 cm in aggregate dimension, and still showing possible evidence of active extravasation. Hemodynamically stable. Creatinine is 1.1. His sugars are running high at 326. There is no anion gap, though CO2 is 20. Magnesium 1.6, was replaced in the ER. COVID is negative. The patient seems to be dry. Admission Exam Per Admitting Provider GENERAL: The patient is morbidly obese, not in acute distress. VITAL SIGNS: Temperature 36.6, pulse 86, respiratory rate 15, blood pressure 162/66, oxygen 96% on 2 liters. HEENT: Pupils equal, round and reactive to light. Oral mucosa dry. NECK: No JVD or neck masses. CARDIOVASCULAR: S1 and S2 heard. Regular rate and rhythm. No murmur, no gallop. RESPIRATORY SYSTEM: Normal AP diameter. No accessory muscle use. No wheezing, no crackles. ABDOMEN: Soft, bowel sounds present, nontender, no distention. CENTRAL NERVOUS SYSTEM: Alert and oriented x2. Speech is clear. Obeys simple commands. No facial droop. Extraocular muscles intact. Moves extremities. EXTREMITIES: Left leg is somewhat swollen and tender. No erythema seen. Principal Diagnosis Hematoma: Acute blood loss anemia Right thigh Hematoma Supratherapeutic INR History of renal transplant HHNK diabetic neuropathy HTN PAF on coumadin SSS s/p PPM Constipation Nausea/vomiting Discharge Exam See below Discharge Data Allergies Allergy/AdvReac Type Severity Reaction Status Date / Time No Known Allergies Allergy Verified 08/08/21 02:50 Consultations 08/08/21 09:16 Consult Orthopedic Surgery Routine 08/09/21 10:50 Consult Cardiology Routine 08/10/21 11:50 Consult Nephrology Routine Current Diagnoses Anemia, unspecified (08/08/21) Paroxysmal atrial fibrillation (08/08/21) Nausea with vomiting, unspecified (08/08/21) Anuria and oliguria (08/08/21) Abnormal coagulation profile (08/08/21) Other injury of unspecified body region, initial encounter (08/08/21) Presence of cardiac pacemaker (08/08/21) Allergies No Known Allergies Allergy (Verified 08/08/21 02:50) Height/Weight/Isolation Height 6 ft 2 in Weight 155 kg Chemistry 08/13/21 08/14/21 06:30 05:32 Sodium 135 L 136 Potassium 4.1 3.9 Chloride 106 107 Carbon Dioxide 24 24 Anion Gap 5 5 BUN 13 11 Creatinine 0.94 1.03 Glucose 127 H 103 H Microbiology 08/08/21 09:15 Blood Aerobic Blood Culture - Final No growth in Aerobic bottle after 5 days. 08/08/21 09:15 Blood Anaerobic Blood Culture - Final No growth in Anaerobic bottle after 5 days. 08/08/21 09:06 Blood Aerobic Blood Culture - Final No growth in Aerobic bottle after 5 days. 08/08/21 09:06 Blood Anaerobic Blood Culture - Final No growth in Anaerobic bottle after 5 days. Ordered Studies 08/08/21 02:33 CT head/brain wo con Urgent 08/08/21 03:33 CT femur RT w con Urgent 08/10/21 09:00 US extremity non-vascular ltd Routine Hospital Course (1) Hematoma: Acute blood loss anemia Right thigh Hematoma -Hb 10.2 from 08/05--> 7.2 --> 5.9 (s/p 2 units) --> 8.3 -In setting of supratherapeutic INR, active bleed into right thigh -s/p 2 units packed RBC with appropriate response -Transfuse to keep Hb >8 with his underlying cardiovascular disease H/H has remained stable Right thigh ultrasound 08/10 shows decrease in size of hematoma Supratherapeutic INR -in setting of poor oral intake recently due to covid 19 infection (recovered) -s/p 10mg IV vitamin K and K centra -INR >10 on admission --> 1.9 History of renal transplant -continue home mycophenolate and tacrolimus -Cr remains stable HHNK diabetic neuropathy -required insulin drip, now basal bolus insulin per pharmacy -tolerating diet HTN -continue amlodipine PAF on coumadin SSS s/p PPM -continue metoprolol 25mg BID -coumadin on hold for now. Cardiology on case to comment on [facility] anticoagulation.Nephrology consulted to determine if patient is a candidate for NOAC with his kidney transplant and medications. Constipation Nausea/vomiting -Nausea/vomiting likely due to constipation. No BM since being here -miralax daily. If no BM by tomorrow, will need suppository -Zofran PRN for nausea -If ongoing symptoms, consider obstruction series DVT ppx SCDs for now Disposition DC home, Start Eliquis in 7 days ROS-No Headache, No Visual Changes, No Nausea, No Vomiting, No Fever, No Chills, No Neck Pain or Stiffness, No Chest Pain, No Palpitations, No SOB, No MUNOZ, No Cough, No Sputum, No Wheezing, No Abdominal Pain, No Diarrhea, No Hematemesis, No Hemoptysis, No Unexpected Weight Loss, No Flank pain, No Melena, No Hematochezia, No Frequency, No Urgency, No Burning, No Hematuria, No Rashes, No Diaphoresis. Appetite is Normal Physical Exam Gen-AAO x 3, NAD, Afebrile Head-NCAT, EOMI, PERRLA, Anicteric Sclera, No Posterior Pharyngeal Erythema Neck-Supple, No JVD, No Thyromegaly, No Masses, No LAD, No Bruits Lungs-Clear to Auscultation Bilaterally, No Rales, No Rhonchi, No Wheezing, No Crepitus Chest-No S4, +S1, +S2, No S3, No Murmurs, No Rubs, No Gallops, No Ectopy Abdomen-Soft, Bowel Sounds Present, Non Tender, Non Distended, No Hepatomegaly, No Splenomegaly, No Palpable Masses, No Rebound, No Rigidity, No Guarding Musculoskeletal-Full Range of Motion Bilaterally, No CVAT Extremities-No Cyanosis, No Clubbing, No Edema, thigh better Nuero-Cranial Nerves II-XII grossly intact, Motor WNL, DTRs WNL, Strength WNL, Non Focal Psych-Normal Mood Total Time Total Time Spent Total Time Spent (In Minutes): 45 mins Total Time Includes: Examination of the Patient, Discharge Planning, Medication Reconciliation and Communication With Other Providers Discharge Plan Discharge Items Patient Disposition: Home - Self-Care Reason For Visit: HYPERGLYCEMIA Discharge Diagnosis: Hematoma: Acute blood loss anemia Right thigh Hematoma Supratherapeutic INR History of renal transplant HHNK diabetic neuropathy HTN PAF on coumadin SSS s/p PPM Constipation Nausea/vomiting Activity: Resume your previous activity Lifting: Gradually increase as tolerated Bathing: No limitations Sexual Activity: When tolerated Exercise/Sports: Gradually increase as tolerated Driving/Machine Use: No limitations Weightbearing: Full weightbearing Non-emergency contact: Primary Care Provider and Cloth Opener Hand Follow-up/Referrals: Ruben Edmond MD [Physician] - (Date & Time 08/19/2021 11:00 AM Provider Ruben Edmond MD Department Cardiology, [facility] ) Kaitlynn Siddiqui MD [Primary Care Provider] - (Date & Time 08/20/2021 9:40 AM Provider Kaitlynn Argueta MD Department Family Medicine [facility] ) Diet: Heart Healthy Add Attending Provider Instructions: Start Eliquis Aug 21, 2021 Pending Studies at Discharge: No Stand-Alone Forms: My [facility], Smoking Cessation Medications and DC Order Prescriptions: New polyethylene glycol 3350 [Miralax] 17 gram Powder In Packet 17 g PO DAILY PRN (Reason: Constipation) Qty: 30 RF: 0 sennosides-docusate sodium [Senokot-S] 8.6-50 mg Tablet 2 tab PO HS Qty: 60 RF: 0 famotidine 20 mg Tablet 20 mg PO BID Qty: 60 RF: 0 Eliquis 5 mg tablet 5 mg PO Q12H Qty: 90 RF: 0 Continued amlodipine 10 mg Tablet 10 mg PO QAM RF: 0 insulin lispro [Humalog U-100 Insulin] 100 unit/mL Solution 1 sliding scale dose SUBCUT USEASDIRECTD RF: 0 tacrolimus 1 mg Capsule 2 mg PO QAM RF: 0 rosuvastatin 20 mg Tablet 20 mg PO QAM RF: 0 metoprolol tartrate 25 mg Tablet 25 mg PO BID RF: 0 cholecalciferol (vitamin D3) [Vitamin D3] 25 mcg (1,000 unit) Tablet 25 mcg PO QAM RF: 0 Lantus Solostar U-100 Insulin 100 unit/mL (3 mL) Insulin Pen 60 unit SUBCUT HS RF: 0 omeprazole 20 mg Tablet,Delayed Release (Dr/Ec) 20 mg PO QAM RF: 0 tacrolimus 1 mg capsule 3 mg PO QPM RF: 0 baclofen 20 mg tablet 20 mg PO AMPM RF: 0 mycophenolate mofetil 250 mg capsule 500 mg PO BID RF: 0 acetaminophen [Tylenol] 325 mg Tablet 650 mg PO Q6H PRN (Reason: Pain) RF: 0 oxycodone 5 mg tablet 5 mg PO Q8H PRN (Reason: pain) Qty: 11 RF: 0 Discontinued warfarin 2.5 mg Tablet 2.5 - 5 mg PO .HOLD RF: 0 Discharge Orders: Discharge Order (Routine); Ordered 08/14/21 Ordered By: David Jimenez/Other Patient Handouts: Managing Type 2 Diabetes Admission Data Admit Date/Time: 08/08/21 07:09 Attending Provider: David Rock Admit Provider: Donovan Arce Primary Care Provider: Kaitlynn Siddiqui Other Providers: Bhumi Aguirre ; Dylan Walker ; Kalin Jensen ; Fay Snyder ; Aston Santiago ; Zaida Michaels ; Alexa Cadet ; Juliocesar Kramer ; Melissa Ramirez ; Golden Ghosh ; [facility]
[2021-08-14] MEDS ORDERED: INSULIN GLARGINE SOLOSTAR 100 UNITS/ML 3 ML PEN SC SCH (21:00)
--- NOTE | 2021-08-19 17:55 | Communication Note ---
Date of Service: August 19, 2021 Addendum to prior progress note dated 08/11/2021 Right thigh hematoma due to coumadin therapy
== END 2021-08-14 13:57 | disposition home health service (06) | DRG 811 ==
LOC: SUATTDRO → ED 02:07 → SUATTDRO 07:09 → 2S 07:09